=== PATIENT | female | born 1985 | race Caucasian/White ===

== ENCOUNTER 2017-09-02 12:43 | Emergency (ER) | payer OTHER ==
[~2017-09-02] VITALS: Ht 152.4 cm; Wt 48.1 kg
[~2017-09-02 12:43] MED LIST: ALPRAZOLAM1 MG PO; ATIVAN1 MG PO; AUGMENTIN PO; CARAFATE1 GM PO; CELEBREX100 MG PO; COUMADIN1 MG PO; COUMADIN3 MG PO; FLUCONAZOLE100 MG PO; HYDROXYZINE HCL25 MG PO; HYDROXYZINE HCL50 MG PO; LEVSIN0.125 MG PO; LORATADINE10 M1 PO; LORATADINE10 MG PO; LUNESTA1 MG PO; LUNESTA2 MG PO; METOCLOPRAMIDE10 MG PO; METRONIDAZOLE250 MG PO; MIDODRINE HCL2.5 MG PO; NORCO 10-325 T1 EACH PO; OLANZAPINE20 MG PO; OMEPRAZOLE40 MG PO; PANTOPRAZOLE SO40 MG PO; PROMETHAZINE HC25 M1 PO; PROTONIX40 MG PO; RANITIDINE HCL150 MG PO; REGLAN5 MG PO; REMICADE100 MG/VIA; SERTRALINE HCL50 MG PO; TEMAZEPAM15 MG PO; TRAZODONE HCL50 MG PO; TYLENOL # 31 EA PO; TYLENOL WITH C1 EACH PO; ULTRAM 50MG50 MG PO; VANCOCIN HCL250 MG PO; VYVANSE20 MG PO; ZALEPLON10 MG PO; ZOLPIDEM TARTRAT5 MG PO; [UNRECOGNIZED DRUG - OTHER] PO
== END 2017-09-02 13:25 | disposition left against medical advice (07) ==
LOC: ER 12:43
DX: M67.431 Ganglion, right wrist (principal)

== ENCOUNTER 2017-10-25 19:23 | Inpatient (IN) | payer OTHER ==
[~2017-10-25] VITALS: Ht 152.4 cm; Wt 48.1 kg
[2017-10-25] MEDS ORDERED: ONDANSETRON HCL INJ 2 MG/ML VIAL IV STA (19:30)
[2017-10-25] MEDS ORDERED: SODIUM CHLORIDE 0.9% 1000ML 1,000 ML IV STA (19:30)
[2017-10-25] MEDS ORDERED: HYDROMORPHONE 1MG/1ML INJ IV ONE (20:00)
[2017-10-25] MEDS ORDERED: PROMETHAZINE 12.5MG/ NACL 0.9% 12.5 MG/50 ML BAG IV ONE (20:00)
[2017-10-25 21:17] LABS: BASOPHILS % 0.2 % (0.0-1.0); EOSINOPHILS % 0.1 % (0.0-6.0); HEMOGLOBIN 12.5 g/dL (12.0-16.0); LYMPHOCYTES # (AUTO) 1.5 (1.0-3.2); LYMPHOCYTES % 10.5 % (18.0-39.1); MEAN CORPUSCULAR HEMOGLOBIN 26.5 pg (28-32); MEAN CORPUSCULAR HGB CONC 34.7 g/dL (31-35); MEAN CORPUSCULAR VOLUME 76.3 fL (81-99); MONOCYTES # (AUTO) 1.1 (0.2-0.8); MONOCYTES % 7.2 % (4.4-11.3); NEUTROPHILS # (AUTO) 11.9 (2.1-6.9); NEUTROPHILS % 81.7 % (38.7-80.0); PLATELET COUNT 328 x10e3/uL (140-360); RED BLOOD COUNT 4.72 x10e6/uL (3.6-5.1); RED CELL DISTRIBUTION WIDTH 11.7 % (11.7-14.4)
[2017-10-25 21:37] LABS: ALANINE AMINOTRANSFERASE 13 IU/L (0-55); ALBUMIN 3.2 g/dL (3.5-5.0); ALBUMIN/GLOBULIN RATIO 0.7 (0.8-2.0); ALKALINE PHOSPHATASE 151 IU/L (40-150); ANION GAP 16.1 mmol/L (8-16); BLOOD UREA NITROGEN 18 mg/dL (7-26); BUN/CREATININE RATIO 10 (6-25); CALCIUM 9.4 mg/dL (8.4-10.2); CARBON DIOXIDE 33 mmol/L (22-29); CHLORIDE 83 mmol/L (98-107); CREATINE KINASE 72 IU/L (29-168); CREATININE, SERUM 1.87 mg/dL (0.57-1.11); EST GLOMERULAR FILTRATION RATE 32 ML/MIN (60-); GLUCOSE 106 mg/dL (74-118); LIPASE 107 U/L (8-78); POTASSIUM 3.1 mmol/L (3.5-5.1); SODIUM 129 mmol/L (136-145)
[2017-10-25 22:34] LABS: BILIRUBIN,URINE NEGATIVE (NEGATIVE); CLARITY,URINE CLOUDY (CLEAR); COLOR,URINE YELLOW (YELLOW); KETONES,URINE NEGATIVE (NEGATIVE); LEUKOCYTE ESTERASE ,URINE NEGATIVE (NEGATIVE); NITRITE,URINE NEGATIVE (NEGATIVE); URINE UROBILINOGEN 0.2 mg/dL (0.2 - 1)
--- NOTE | 2017-10-25 22:37 | Diagnostic Imaging Report ---
ABDOMEN-1VIEW (KUB) Clinical history: Small bowel obstruction Technique: AP view abdomen Comparison: None Findings: Gas is seen in nondilated small and large bowel. Bowel sutures noted. No evidence of free air. Impression: Nonobstructive bowel gas pattern. Signed by: Dr Georgie Enamorado MD on 10/25/2017 10:33 PM
[2017-10-25 22:41] LABS: PROTEIN,URINE DIPSTICK 1+ (NEGATIVE)
[2017-10-25 22:47] LABS: BACTERIA,URINE MANY /HPF; EPITHELIAL CELLS,URINE FEW /LPF; TRANSITIONAL EPI CELLS,URINE FEW
--- NOTE | 2017-10-25 22:47 | Diagnostic Imaging Report ---
CHEST SINGLE (PORTABLE), 10/25/2017 7:30 PM Technique: CHEST SINGLE (PORTABLE) Comparison: 9.3.16 Clinical history: Fever Findings: Right port tip overlies the SVC. Unremarkable appearance of the heart, mediastinum, lungs and pleural spaces. Impression: 1. Lines/Tubes: None 2. No acute abnormality. Signed by: Dr Georgie Enamorado MD on 10/25/2017 10:43 PM
[2017-10-25] MEDS ORDERED: LEVOFLOXACIN 500MG/D5W 100ML IV SCH (23:00)
[2017-10-25] MEDS: HYDROMORPHONE 1MG/1ML INJ IV PRN (23:48)
[2017-10-26] MEDS: LEVOFLOXACIN 500MG/D5W 100ML 100 ML IV SCH ×2 (00:08→23:53)
[2017-10-26] MEDS: KCL 20MEQ/.9 SOD CHL 1,000 ML IV SCH ×2 (00:08→07:00)
[2017-10-26 01:03] VITALS: BP 114/79
[2017-10-26] MEDS: METRONIDAZOLE 500MG/NS 100ML 100 ML IV SCH ×4 (01:30→17:51)
[2017-10-26] MEDS: HYDROMORPHONE 1MG/1ML INJ IV PRN ×5 (04:23→19:58)
[2017-10-26 04:49] VITALS: BP 108/80
[2017-10-26 06:28] LABS: BASOPHILS % 0.2 % (0.0-1.0); EOSINOPHILS # (AUTO) 0.1 (0.0-0.4); EOSINOPHILS % 0.6 % (0.0-6.0); HEMATOCRIT 31.8 % (34.2-44.1); HEMOGLOBIN 10.8 g/dL (12.0-16.0); LYMPHOCYTES # (AUTO) 1.8 (1.0-3.2); LYMPHOCYTES % 14.6 % (18.0-39.1); MEAN CORPUSCULAR HEMOGLOBIN 26.5 pg (28-32); MEAN CORPUSCULAR VOLUME 77.9 fL (81-99); MONOCYTES # (AUTO) 1.2 (0.2-0.8); NEUTROPHILS # (AUTO) 8.9 (2.1-6.9); NEUTROPHILS % 74.3 % (38.7-80.0); PLATELET COUNT 283 x10e3/uL (140-360); RED BLOOD COUNT 4.08 x10e6/uL (3.6-5.1); RED CELL DISTRIBUTION WIDTH 11.6 % (11.7-14.4)
[2017-10-26 06:58] LABS: ALBUMIN 2.8 g/dL (3.5-5.0); ALBUMIN/GLOBULIN RATIO 0.7 (0.8-2.0); CALCIUM 8.8 mg/dL (8.4-10.2); CREATININE, SERUM 1.2 mg/dL (0.57-1.11)
[2017-10-26 08:00] VITALS: BP 104/65
[2017-10-26] MEDS: PROMETHAZINE 12.5MG/ NACL 0.9% 12.5 MG/50 ML BAG IV PRN ×3 (08:16→19:57)
[2017-10-26] MEDS: ALPRAZOLAM 0.5 MG TAB PO PRN (09:51)
[2017-10-26] MEDS ORDERED: DIATRIZOATE MEGL/DIATRIZOA SOD 30 ML BTL PO ONE (10:05)
--- NOTE | 2017-10-26 10:28 | History and Physical ---
CHIEF COMPLAINT: Acute abdominal pain associated with nausea, vomiting, dehydration, electrolyte disorder. HISTORY OF PRESENT ILLNESS: Patient is a 31-year-old female, well known to this service. Patient has Crohn disease with multiple history of previous surgical intervention. The patient basically has been seen by Dr. Veras for her treatment. She had a complicated history with a previous surgical intervention. The patient underwent extensive multiple surgeries and then subsequently a total colectomy. She had a colonic-ileal anastomosis. She also had multiple workup and recurrent hospitalization. She had previous right iliacus muscle abscess at the previous anastomosis. The patient was with antibiotics previously and subsequently went home with antibiotics. Since then the patient has been treated as an outpatient. The patient has now presented to the hospital with leukocytosis of 14,500 associated with fever of 100.6. The patient has intractable abdominal pain. The KUB did not show any free air, but the patient will need a CT scan of the abdomen and pelvis. She also has significant urinary tract infection with WBCs in the urine of 20 and many bacteria. Influenza was negative. The patient is with pain but otherwise hemodynamically stable. Blood pressure is 104/65. PAST MEDICAL HISTORY: Extensive. Long history of Crohn disease with multiple surgical interventions. Possible previous surgery with subtotal to total colectomy with anastomosis on the right side of the abdominal area with a previous abscess infection and iliacus muscular abscess which was basically with a drain and antibiotic treatment. Recurrent abdominal pain. Recurrent urinary tract infection and electrolyte disorder. The patient is having recurrent diarrhea episodically. She is on pain medication dependency as well for pain control. SOCIAL HISTORY: Patient lives with her spouse and children. She does not smoke or drink alcohol. No recreational drugs. ALLERGIES: ZOFRAN, MORPHINE AND ADHESIVE TAPE. HOME MEDICATIONS: List is extensively reviewed including Xanax, hydroxyzine, Levsin, Remicade outpatient, Claritin, Reglan, midodrine, omeprazole, Zoloft, temazepam, trazodone, tramadol for pain, Ambien and [employer] PHYSICAL EXAMINATION GENERAL: The patient is in pain, but she is not in distress. VITAL SIGNS: Temperature T-max was 100.6. Blood pressure is 114/79. Pulse rate 100.5. Respirations 22. HEENT: Normocephalic, atraumatic, anicteric. NECK: Supple grossly. PULMONARY: Diminished breath sounds without any wheezing or rales. CARDIOVASCULAR: S1, S2. Tachycardia. ABDOMEN: Tenderness to all quadrants. There is guarding. There are no rebound. NEUROLOGIC: No focal deficit. LABORATORY: WBC is 14.5. Hemoglobin 12.5, hematocrit 36, platelets 328. Chemistries: Sodium 129, potassium 3.1, chloride 83, bicarb 33, BUN 18, creatinine 1.9, glucose 106. test is negative. Lipase is 107. IMPRESSION 1. Intractable abdominal pain associated with nausea, vomiting, diarrhea, electrolyte disorder. Could be exacerbation of the patient's Crohn disease. 2. Leukocytosis and fever as mentioned above including most likely infection. 3. Urinary tract infection. 4. Intractable pain. 5. Electrolyte disorder. Dehydration with hyponatremia. PLAN: Normal saline with potassium replacement. Antibiotics. Consultation with Dr. Bojorquez and Dr. Torre. Continue with treatment until urine culture and blood culture obtained. Pain control. IV fluid rehydration. Will monitor patient closely as inpatient. Job#: [id number]
[2017-10-26 12:00] VITALS: BP 106/59
[2017-10-26] MEDS: KCL 40MEQ/0.9% SOD CHL 1,000 ML IV SCH ×2 (12:00→22:00)
--- NOTE | 2017-10-26 14:36 | Consultation ---
DATE OF CONSULTATION: October 26, 2017 REASON FOR CONSULTATION: Colitis. Recommendation for antibiotic. Fever HISTORY OF PRESENT ILLNESS: This is a well known to me, 31-year-old white female, unfortunate, who has a history of severe Crohn disease. She has been seen by gastroenterology [facility] as well as Dr. Veras. Patient has had multiple abdominal surgeries and multiple intra-abdominal abscesses. She had been doing fair, but she continued to have abdominal pain. Given multiple IV fluids. She cannot keep anything in on and off, so she gets IV fluid infusions sometimes and multivitamins sometimes and nutrition. The patient comes now with nausea and vomiting. Cannot tolerate anything. The pain was so severe she could not tolerate it. She had to go to the emergency room where she was evaluated and admitted. The patient has a history of Crohn's disease, multiple surgical interventions, multiple intra-abdominal abscesses. She is cachectic now and not gaining any weight. She comes in with the above complaint. PAST SURGICAL HISTORY: Abdominal surgery. ALLERGIES: NKA. SOCIAL HISTORY: No smoking, no alcohol abuse, no drug abuse. FAMILY HISTORY: Noncontributory. REVIEW OF SYSTEMS GENERAL: Complaining of nausea, not feeling well. HEENT: There is no headache and no visual changes. She feels really miserable. She said she cannot keep anything in. LABORATORY DATA: White count on admission was 14.5, hemoglobin 12, hematocrit 36. Sodium 127, potassium 3.0, creatinine 1.2. When she first came, the creatinine was 1.87. PHYSICAL EXAMINATION GENERAL: She is currently alert and oriented, does not seem to be in acute distress. VITALS: Stable, currently afebrile, but she did have 100.5 when she first came in. HEENT: She is not icteric. NECK: Supple. CHEST: Clear. COR: No murmur. ABDOMEN: Soft. She has diffuse discomfort and tenderness. EXTREMITIES: No edema. Very thin lady. IMPRESSION: Nausea, vomiting, acute dehydration with acute renal failure. Hyponatremia and hyperkalemia, probably a flare-up of Crohn disease. Will put her on IV fluids as ordered. Continue with Levaquin and Flagyl for now. She had a CT scan in the last less than a year. I would suggest to obtain an ultrasound of the abdomen. Her x-ray does not show obstruction. Will see how she can do in the next few days with IV fluids and supportive care. Will follow. Job#: [id number]
--- NOTE | 2017-10-26 19:55 | Consultation ---
DATE OF CONSULTATION: October 26, 2017 REFERRING PHYSICIAN: Dr. Salter and Dr. Torre. HISTORY OF PRESENT ILLNESS: Patient is a 31-year-old female who is known to me. She has history of Crohn's disease. She had a previous total colectomy with a J pouch. This was done a few years ago. She has frequent diarrhea. She is admitted to the hospital now with complaints of increasing abdominal pain and dehydration. She has only had a plain abdominal x-ray done this admission, which was unremarkable. She says she has been on Remicade as an outpatient. 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 She has not had any surgery done in the last at least 2 years. PAST MEDICAL HISTORY: Significant for multiple complications of her Crohn's disease with previous total colectomy with J pouch and ileoproctostomy. She has had multiple hospitalizations recently for complications with abscesses that require percutaneous drainage. She has a venous access port. ALLERGIES: ZOFRAN, MORPHINE AND ADHESIVE TAPE. MEDICATIONS: Xanax, Vistaril, Levsin, Remicade, Claritin, Reglan, Midodrine, omeprazole, Zoloft, temazepam, trazodone, tramadol, Ambien and [place]. FAMILY HISTORY: Noncontributory. SOCIAL HISTORY: The patient is . Does not smoke cigarettes or drink alcohol. REVIEW OF SYSTEMS: Is as stated above. She has had low-grade fever. She also has pain. Where her right subclavian venous access port is. PHYSICAL EXAMINATION: VITALS: Significant for a low-grade fever. Temperature up to 100.6 today with heart rate around 100. GENERAL: The patient is awake and alert and in no distress. HEENT: Reveals no scleral icterus. NECK: Has no masses. LUNGS: Equal breath sounds, are clear bilaterally. CARDIAC: Regular subclavian port in place which does not show any signs of infection. Regular rate and rhythm with no murmur. ABDOMEN: Diffusely tender, but soft with no signs of peritonitis. There is no mass. No distention. EXTREMITIES: No edema. LABORATORY DATA: White blood cell count 14.5 on admission and repeat today is 12. Hemoglobin and hematocrit are 12.5 and 36. Chemistries with sodium low at 127, chloride 86, potassium 3.0. Bicarbonate level was normal. BUN is normal and creatinine slightly elevated at 1.2. Liver function tests were essentially normal. ASSESSMENT: A 31-year-old female with Crohn's disease with increased pain. She will likely need further evaluation of ultrasound and/or CT scan of the abdomen. She may benefit from ileostomy as it seems that the source of the fistula is the J pouch and ileoproctostomy. This was explained to the patient. She is considering this option. Thank you for asking me to see Ms. Boucher. Job#: [id number]
[2017-10-26 20:00] VITALS: BP 110/61
[2017-10-27] VITALS (7 sets, daily range): BP systolic 112–126; BP diastolic 58–72
[2017-10-27] MEDS: PROMETHAZINE 12.5MG/ NACL 0.9% 12.5 MG/50 ML BAG IV PRN ×5 (00:18→20:30)
[2017-10-27] MEDS: HYDROMORPHONE 1MG/1ML INJ IV PRN ×10 (00:18→22:30)
[2017-10-27] MEDS: METRONIDAZOLE 500MG/NS 100ML 100 ML IV SCH ×4 (00:36→19:45)
[2017-10-27] MEDS: KCL 40MEQ/0.9% SOD CHL 1,000 ML IV SCH ×2 (06:06→18:00)
[2017-10-27 06:29] LABS: ALANINE AMINOTRANSFERASE 11 IU/L (0-55); ALBUMIN 2.3 g/dL (3.5-5.0); ALBUMIN/GLOBULIN RATIO 0.7 (0.8-2.0); ALKALINE PHOSPHATASE 103 IU/L (40-150); ANION GAP 12.7 mmol/L (8-16); BLOOD UREA NITROGEN 8 mg/dL (7-26); BUN/CREATININE RATIO 11 (6-25); CALCIUM 7.7 mg/dL (8.4-10.2); CARBON DIOXIDE 24 mmol/L (22-29); CHLORIDE 103 mmol/L (98-107); CREATININE, SERUM 0.72 mg/dL (0.57-1.11); EST GLOMERULAR FILTRATION RATE > 60 ML/MIN (60-); GLUCOSE 77 mg/dL (74-118); PHOSPHORUS 1.8 MG/DL (2.3-4.7); POTASSIUM 3.7 mmol/L (3.5-5.1); SODIUM 136 mmol/L (136-145)
[2017-10-27 06:43] LABS: MAGNESIUM 1.1 MG/DL (1.3-2.1)
[2017-10-27] MEDS: ACETAMINOPHEN 325 MG TAB PO PRN ×2 (09:40→20:30)
[2017-10-27] MEDS: ALPRAZOLAM 0.5 MG TAB PO PRN ×2 (09:40→21:02)
[2017-10-27 09:56] LABS: BASOPHILS % 0.2 % (0.0-1.0); EOSINOPHILS # (AUTO) 0.1 (0.0-0.4); HEMATOCRIT 29.2 % (34.2-44.1); HEMOGLOBIN 9.6 g/dL (12.0-16.0); LYMPHOCYTES # (AUTO) 1.5 (1.0-3.2); LYMPHOCYTES % 16.4 % (18.0-39.1); MEAN CORPUSCULAR HEMOGLOBIN 26.3 pg (28-32); MEAN CORPUSCULAR HGB CONC 32.9 g/dL (31-35); MONOCYTES % 10.7 % (4.4-11.3); NEUTROPHILS # (AUTO) 6.3 (2.1-6.9); NEUTROPHILS % 71.4 % (38.7-80.0); PLATELET COUNT 213 x10e3/uL (140-360); RED BLOOD COUNT 3.65 x10e6/uL (3.6-5.1); RED CELL DISTRIBUTION WIDTH 11.7 % (11.7-14.4)
--- NOTE | 2017-10-27 10:20 | Diagnostic Imaging Report ---
PROCEDURE:ABDOMINAL ULTRASOUND COMPARISON:CT abdomen and pelvis 06/30/2017. INDICATIONS:Abdominal Pain, HX Crohn's and Colitis FINDINGS: Liver: 13.2 cm. Normal hepatic parenchymal echogenicity. No focal mass. Main portal vein: 1.3 cm. Hepatopedal flow. Gallbladder: No echogenic calculi, gallbladder wall thickening, or pericholecystic fluid. Common Bile Duct: 2.0 mm. No echogenic filling defect. Sonographic Grubbs's sign: Negative. Right kidney: 11.4 cm. No solid or cystic mass, echogenic calculi, or hydronephrosis. Normal parenchymal echogenicity. Left kidney: 10.4 cm. No solid or cystic mass, echogenic calculi, or hydronephrosis. Normal parenchymal echogenicity. Spleen: 10.7 cm. No focal mass. Pancreas: The visualized portions of the pancreas are normal. Inferior vena cava: Normal. Aorta: Normal. Ascites: None. Focal 3.4 x 1.6 x 3.8 cm fluid collection is present in the right lower quadrant. CONCLUSION: 1. No acute sonographic abnormality. 2. Right lower quadrant fluid collection. CT of the abdomen and pelvis with intravenous and oral contrast may provide additional information for further characterization. 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 Dictated by: Abdias Jones M.D. on 10/27/2017 at 10:19 Electronically approved by: Abdias Jones M.D. on 10/27/2017 at 10:19
--- NOTE | 2017-10-27 10:26 | Diagnostic Imaging Report ---
PROCEDURE:PELVIC ULTRASOUND COMPARISON:None. INDICATIONS:History of pelvic Abscess TECHNIQUE: Grayscale transverse and sagittal transabdominal images were obtained of the pelvis. FINDINGS: UTERUS: 8.8 x 3.9 x 4.5 cm. The uterus is slightly heterogenous in echogenicity. ENDOMETRIUM: 6.0 mm. RIGHT OVARY: 3.0 x 2.0 x 2.5 cm. LEFT OVARY: 2.9 x 2.1 x 2.6 cm. No adnexal mass. No ovarian cysts. There is trace free fluid within the pelvis. No adnexal masses. CONCLUSION: Normal transabdominal and transvaginal pelvic ultrasound. Dictated by: Abdias Jones M.D. on 10/27/2017 at 10:25 Electronically approved by: Abdias Jones M.D. on 10/27/2017 at 10:25
[2017-10-27] MEDS ORDERED: POTASSIUM PHOSPHATE 20 MM in SODIUM CHLORIDE 0.9% 250ML 250 ML IV SCH (10:30)
[2017-10-27] MEDS: MAGNESIUM SULFATE 2GM/50ML IV SCH ×2 (10:44→22:13)
[2017-10-27] MEDS ORDERED: DIATRIZOATE MEGL/DIATRIZOA SOD 30 ML BTL PO ONE (12:35)
[2017-10-27] MEDS: SENNOSIDES 8.6 MG TAB PO SCH (17:00)
[2017-10-27] MEDS ORDERED: IOPAMIDOL 370 MG/ML 200 ML INFUS..BTL INJ ONE (22:38)
--- NOTE | 2017-10-27 23:47 | Diagnostic Imaging Report ---
EXAM: CT Abdomen and Pelvis WITH contrast INDICATION: Abdominal fluid collection. COMPARISON: None. TECHNIQUE: Abdomen and pelvis were scanned utilizing a multidetector helical scanner from the lung base to the pubic symphysis after administration of IV contrast. Coronal and sagittal reformations were obtained. Routine protocol was performed. Scan was performed when during portal venous phase. IV CONTRAST: 150 mL of Omnipaque 300 ORAL CONTRAST: Water RADIATION DOSE: Total DLP: ... mGy*cm Estimated effective dose: (DLP x 0.015 x size factor) mSv COMPLICATIONS: None FINDINGS: LINES and TUBES: None. LOWER THORAX: Unremarkable HEPATOBILIARY: Severe atrophy of the right liver with compensatory hypertrophy of the left liver. No focal hepatic lesions. Diffuse biliary dilatation in residual right liver. GALLBLADDER: Contracted. SPLEEN: No splenomegaly. PANCREAS: No focal masses or ductal dilatation. ADRENALS: No adrenal nodules KIDNEYS/URETERS: Kidneys enhance symmetrically. No hydronephrosis. No cystic or solid mass lesions. No stones. GI TRACT: Extensive postsurgical changes noted in the abdomen and pelvis with evidence of ileorectal anastomosis. Patient is a status post total colectomy. PELVIC ORGANS/BLADDER: Unremarkable. LYMPH NODES: No lymphadenopathy. VESSELS: Unremarkable. PERITONEUM / RETROPERITONEUM: Within the right retroperitoneum at the lateral right iliac muscle there is a 2.5 x 3.2 x 3.7 cm fluid collection that appears to connect with a bowel loop best visualized on coronal series 301, image 29 compatible with a chronic focal leak. Additionally, there is a fluid collection originating at the level of the ileorectal anastomosis best seen on series 2, image 64 and coronal series 301, image 52 measuring 1.7 x 1.7 x 3 cm. Right lower quadrant perisurgical fat stranding. BONES: Unremarkable. SOFT TISSUES: Unremarkable. IMPRESSION: 1. Severe atrophy of the right liver with competence of the hypertrophy of the left liver and evidence of biliary dilatation in the residual right liver. 2. There are 2 extraperitoneal fluid collections in the right lower quadrant and in the right hemipelvis as described above. The appearance and close proximity to anastomotic sutures are compatible with contained leaks Signed by: Dr. Marcos Tom M.D. on 10/27/2017 11:43 PM
[2017-10-28] VITALS: BP 120/56
[2017-10-28] MEDS: HYDROMORPHONE 1MG/1ML INJ IV PRN ×7 (00:30→21:13)
[2017-10-28] MEDS: PROMETHAZINE 12.5MG/ NACL 0.9% 12.5 MG/50 ML BAG IV PRN ×3 (00:30→20:54)
[2017-10-28] MEDS: LEVOFLOXACIN 500MG/D5W 100ML 100 ML IV SCH (01:12)
[2017-10-28] MEDS: METRONIDAZOLE 500MG/NS 100ML 100 ML IV SCH ×2 (02:00→07:00)
[2017-10-28 04:00] VITALS: BP 129/83
[2017-10-28] MEDS: ALPRAZOLAM 0.5 MG TAB PO PRN ×3 (05:00→20:53)
[2017-10-28] MEDS: ACETAMINOPHEN 325 MG TAB PO PRN ×2 (05:00→21:49)
[2017-10-28 06:13] LABS: BASOPHILS % 0.2 % (0.0-1.0); EOSINOPHILS # (AUTO) 0.1 (0.0-0.4); EOSINOPHILS % 0.9 % (0.0-6.0); HEMATOCRIT 25.5 % (34.2-44.1); HEMOGLOBIN 8.6 g/dL (12.0-16.0); LYMPHOCYTES # (AUTO) 1.1 (1.0-3.2); LYMPHOCYTES % 11.8 % (18.0-39.1); MEAN CORPUSCULAR HEMOGLOBIN 26.5 pg (28-32); MEAN CORPUSCULAR HGB CONC 33.7 g/dL (31-35); MEAN CORPUSCULAR VOLUME 78.7 fL (81-99); MONOCYTES # (AUTO) 0.9 (0.2-0.8); MONOCYTES % 9.3 % (4.4-11.3); NEUTROPHILS # (AUTO) 7.4 (2.1-6.9); NEUTROPHILS % 77.4 % (38.7-80.0); PLATELET COUNT 209 x10e3/uL (140-360); RED BLOOD COUNT 3.24 x10e6/uL (3.6-5.1); RED CELL DISTRIBUTION WIDTH 11.9 % (11.7-14.4)
[2017-10-28 06:36] LABS: ALANINE AMINOTRANSFERASE 12 IU/L (0-55); ALBUMIN 2.6 g/dL (3.5-5.0); ALBUMIN/GLOBULIN RATIO 0.7 (0.8-2.0); ALKALINE PHOSPHATASE 104 IU/L (40-150); ANION GAP 13.8 mmol/L (8-16); BLOOD UREA NITROGEN 6 mg/dL (7-26); BUN/CREATININE RATIO 8 (6-25); CARBON DIOXIDE 20 mmol/L (22-29); CHLORIDE 103 mmol/L (98-107); CREATININE, SERUM 0.74 mg/dL (0.57-1.11); EST GLOMERULAR FILTRATION RATE > 60 ML/MIN (60-); GLUCOSE 84 mg/dL (74-118); MAGNESIUM 1.5 MG/DL (1.3-2.1); PHOSPHORUS 1.8 MG/DL (2.3-4.7); POTASSIUM 3.8 mmol/L (3.5-5.1); SODIUM 133 mmol/L (136-145)
[2017-10-28] MEDS: KCL 40MEQ/0.9% SOD CHL 1,000 ML IV SCH (07:00)
[2017-10-28 08:00] VITALS: BP 102/55
[2017-10-28] MEDS: SENNOSIDES 8.6 MG TAB PO SCH ×2 (09:00→16:04)
[2017-10-28] MEDS ORDERED: SODIUM CHLORIDE 0.9% 1000ML 1,000 ML ONE (09:09)
[2017-10-28] MEDS ORDERED: FENTANYL CITRATE/PF 100MCG/2 ML INJ ONE (09:31)
[2017-10-28] MEDS ORDERED: MIDAZOLAM HCL 2 MG/2 ML VIAL ONE (09:31)
--- NOTE | 2017-10-28 11:46 | Diagnostic Imaging Report ---
PROCEDURE:[facility] FLUID/ABSC W/CATH-CT COMPARISON:CT abdomen and pelvis 10/27/2017. INDICATIONS:Right lower quadrant fluid collection. Preprocedure diagnosis: Right lower quadrant fluid collection Post procedure diagnosis: Right lower quadrant abscess Sedation/anesthesia: Fentanyl 100 mcg intravenous, Versed 2 mg intravenous. The patient's heart rate and pulse oximetry were continuously monitored by the interventional radiology nurse. Blood pressure was monitored at 5 minute intervals. Additional medications: Lidocaine 1% for local anesthesia Estimated blood loss: Minimal Blood products administered: None Specimens: 5 cc purulent fluid was submitted for microbiologic analysis Implants/grafts: 10 Yi locking loop all-purpose drainage catheter Contrast used: None Fluoroscopy time: Zero Condition at completion of procedure: Stable Disposition: Radiology holding then returned to coe unit. Procedure in detail: Informed consent for the procedure was obtained from the patient and documented in the medical record after discussion of risks and benefits. The patient was placed in the supine position on the CT couch. A marker grid was placed over the right lower quadrant of the abdomen and limited CT scan was performed identifying a suitable percutaneous approach. Right lower quadrant was then prepped and draped in standard sterile fashion. One percent lidocaine was infiltrated into the skin and subcutaneous tissues for local anesthesia. Then under intermittent CT guidance, an 18 gauge needle was advanced into the right lower quadrant fluid collection. Purulent material was aspirated. A 0.035 inch Amplatz wire was advanced through the needle. The needle was removed over the wire and the tract was dilated. Then a 10 Yi locking loop all-purpose drainage catheter was advanced [id number] and the locking loop was formed within the fluid collection. Final CT image confirmed appropriate catheter positioning. Approximately 5 cc of purulent material were aspirated through the catheter. A specimen was submitted for microbiologic analysis. Catheter was secured to the skin with monofilament nylon suture and a sterile dressing was applied. Patient tolerated the procedure well without immediate complication. FINDINGS: 3 cm right lower quadrant abscess. CONCLUSION: Successful CT-guided aspiration and drainage catheter placement within a right lower quadrant abscess without immediate complication. Dictated by: Bradley Read M.D. on 10/28/2017 at 11:45 Electronically approved by: Bradley Read M.D. on 10/28/2017 at 11:45
[2017-10-28 12:00] VITALS: BP 107/52
[2017-10-28] MEDS: MEROPENEM 500 MG VIAL IV SCH ×2 (15:15→20:54)
--- NOTE | 2017-10-28 15:53 | Progress Note ---
DATE: October 28, 2017 INFECTIOUS DISEASE PROGRESS NOTE SUBJECTIVE: Ms. Boucher is doing okay, feeling better. She still has some abdominal pain. She has a drain in now. No fever, no chills. PHYSICAL EXAMINATION GENERAL: She is currently alert, oriented, does not seem to be in acute distress. She is thin. VITAL SIGNS: Stable. Currently afebrile. Her T-max has been 102.4. HEENT: She does not appear icteric. Normocephalic. NECK: Supple. CHEST: Clear bilaterally. HEART: S1 and S2. No S3 or S4, no murmur. ABDOMEN: Soft. She has a drain in which is like red serosanguineous. Her laboratory data reviewed. The cultures are still pending. Her white count is down to 9.6, hemoglobin 8.6. Sodium 133, potassium 3.8, creatinine of 0.74. Liver enzymes within normal limits. 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 Still running fever. Will change her to meropenem but wait for the cultures. Discontinue Levaquin and Flagyl. Will follow with you. Job#: [id number] YURIDIA
[2017-10-28 16:00] VITALS: BP 95/58
[2017-10-28 20:00] VITALS: BP 117/80
[2017-10-28] MEDS ORDERED: MEROPENEM 500MG 500 MG in SODIUM CHLORIDE 0.9% 50ML 50 ML IV SCH (22:00)
[2017-10-29] VITALS: BP 118/69
[2017-10-29] MEDS: KCL 40MEQ/0.9% SOD CHL 1,000 ML IV SCH ×2 (01:17→10:00)
[2017-10-29] MEDS: HYDROMORPHONE 1MG/1ML INJ IV PRN ×5 (01:18→20:55)
[2017-10-29] MEDS: ACETAMINOPHEN 325 MG TAB PO PRN ×2 (02:59→21:43)
[2017-10-29] MEDS: ALPRAZOLAM 0.5 MG TAB PO PRN ×3 (02:59→21:17)
[2017-10-29 04:00] VITALS: BP 107/79
[2017-10-29] MEDS: MEROPENEM 500 MG VIAL IV SCH ×3 (06:13→20:55)
[2017-10-29] MEDS: PROMETHAZINE 12.5MG/ NACL 0.9% 12.5 MG/50 ML BAG IV PRN ×3 (06:24→20:55)
[2017-10-29 07:57] VITALS: BP 105/58
[2017-10-29] MEDS: SENNOSIDES 8.6 MG TAB PO SCH ×2 (08:37→17:00)
[2017-10-29 12:05] VITALS: BP 117/77
[2017-10-29 16:14] VITALS: BP 98/54
--- NOTE | 2017-10-29 17:09 | Progress Note ---
DATE: October 29, 2017 SUBJECTIVE: Ms. Boucher continued to have abdominal pain. She has a drain in. There is no new complaint otherwise. PHYSICAL EXAMINATION GENERAL: She is currently alert and oriented, does not seem to be in acute distress, a very thin lady. VITAL SIGNS: Stable. Had a fever of 101.3. HEENT: She does not appear icteric. NECK: Supple. CHEST: Few crackles bilaterally, coarse. HEART: S1 and S2. ABDOMEN: Soft. The culture is growing staph aureus. Her laboratory data reviewed. White count is 14.5, hemoglobin 12. Her sodium 136, potassium 3.7, creatinine of 0.72. IMPRESSION AND PLAN 1. Sepsis abscess secondary to Crohn's disease, with concern about fistula, now she is growing staph aureus. Continue meropenem. We will add vancomycin for fever, concerned about the new infection. We will obtain the blood culture. 2. Crohn's disease and debilitated. We will follow with you. Job#: [id number] FRANNIE
[2017-10-29] MEDS: VANCOMYCIN 1GM/NS 250 ML 250 ML IV SCH (17:59)
[2017-10-29 20:00] VITALS: BP 129/59
[2017-10-29] MEDS ORDERED: CENTRAL TPN FORMULA 1 BAG IV SCH (20:00)
[2017-10-29] MEDS: FAMCICLOVIR 500 MG TAB PO SCH (20:55)
[2017-10-29] MEDS ORDERED: SODIUM CHLORIDE 0.9% 250ML 250 ML ONE (21:32)
[2017-10-30] VITALS (9 sets, daily range): BP systolic 92–127; BP diastolic 54–62
[2017-10-30] MEDS: HYDROMORPHONE 1MG/1ML INJ IV PRN ×8 (01:24→23:36)
[2017-10-30] MEDS: PROMETHAZINE 12.5MG/ NACL 0.9% 12.5 MG/50 ML BAG IV PRN ×3 (01:24→12:34)
[2017-10-30] MEDS: MEROPENEM 500 MG VIAL IV SCH ×3 (05:59→21:10)
[2017-10-30 07:25] LABS: BASOPHILS % 0.4 % (0.0-1.0); EOSINOPHILS # (AUTO) 0.2 (0.0-0.4); EOSINOPHILS % 2.5 % (0.0-6.0); HEMATOCRIT 29.6 % (34.2-44.1); HEMOGLOBIN 9.6 g/dL (12.0-16.0); LYMPHOCYTES # (AUTO) 1.7 (1.0-3.2); LYMPHOCYTES % 21.9 % (18.0-39.1); MEAN CORPUSCULAR HEMOGLOBIN 26.1 pg (28-32); MEAN CORPUSCULAR HGB CONC 32.4 g/dL (31-35); MEAN CORPUSCULAR VOLUME 80.4 fL (81-99); MONOCYTES # (AUTO) 1.2 (0.2-0.8); MONOCYTES % 15.4 % (4.4-11.3); NEUTROPHILS # (AUTO) 4.5 (2.1-6.9); NEUTROPHILS % 59.4 % (38.7-80.0); PLATELET COUNT 292 x10e3/uL (140-360); RED BLOOD COUNT 3.68 x10e6/uL (3.6-5.1); RED CELL DISTRIBUTION WIDTH 12.3 % (11.7-14.4)
[2017-10-30 07:41] LABS: ANION GAP 12.2 mmol/L (8-16); BLOOD UREA NITROGEN < 5 mg/dL (7-26); CALCIUM 8.5 mg/dL (8.4-10.2); CARBON DIOXIDE 22 mmol/L (22-29); CHLORIDE 105 mmol/L (98-107); CREATININE, SERUM 0.67 mg/dL (0.57-1.11); EST GLOMERULAR FILTRATION RATE > 60 ML/MIN (60-); GLUCOSE 112 mg/dL (74-118); PHOSPHORUS 2.7 MG/DL (2.3-4.7); POTASSIUM 4.2 mmol/L (3.5-5.1); SODIUM 135 mmol/L (136-145)
[2017-10-30 07:46] LABS: BUN/CREATININE RATIO 7 (6-25)
[2017-10-30 08:06] LABS: MAGNESIUM 1.2 MG/DL (1.3-2.1)
[2017-10-30] MEDS: SENNOSIDES 8.6 MG TAB PO SCH ×2 (09:31→17:32)
[2017-10-30] MEDS: FAMCICLOVIR 500 MG TAB PO SCH ×3 (09:31→21:10)
[2017-10-30] MEDS: VANCOMYCIN 1GM/NS 250 ML 250 ML IV SCH (17:31)
[2017-10-30] MEDS: ACETAMINOPHEN 325 MG TAB PO PRN (17:51)
[2017-10-30] MEDS: ALPRAZOLAM 0.5 MG TAB PO PRN (21:17)
[2017-10-31] VITALS (7 sets, daily range): BP systolic 90–127; BP diastolic 45–66
[2017-10-31] MEDS: HYDROMORPHONE 1MG/1ML INJ IV PRN ×3 (04:55→12:19)
[2017-10-31] MEDS: ALPRAZOLAM 0.5 MG TAB PO PRN ×2 (05:38→23:03)
[2017-10-31] MEDS: ACETAMINOPHEN 325 MG TAB PO PRN ×2 (05:38→18:05)
[2017-10-31] MEDS: MEROPENEM 500 MG VIAL IV SCH ×2 (05:39→14:25)
[2017-10-31] MEDS: FAMCICLOVIR 500 MG TAB PO SCH ×3 (08:05→21:01)
[2017-10-31] MEDS: SENNOSIDES 8.6 MG TAB PO SCH ×2 (09:00→15:57)
[2017-10-31] MEDS: HYDROMORPHONE 2MG/ML INJ IV PRN ×4 (14:25→23:02)
[2017-10-31] MEDS ORDERED: CEFTRIAXONE SOD 1 GM/NS 50 ML 50 ML IV SCH (15:15)
[2017-10-31] MEDS ORDERED: CEFTRIAXONE SOD 1 GM VIAL IV SCH (16:00)
[2017-10-31] MEDS: VANCOMYCIN 1GM/NS 250 ML 250 ML IV SCH (17:54)
[2017-11-01] VITALS (7 sets, daily range): BP systolic 101–114; BP diastolic 58–69
[2017-11-01] MEDS: HYDROMORPHONE 2MG/ML INJ IV PRN ×3 (02:36→08:38)
[2017-11-01] MEDS ORDERED: HYDROMORPHONE 1MG/1ML INJ ONE ×2 (06:25→08:31)
[2017-11-01 07:59] LABS: PHOSPHORUS 2.8 MG/DL (2.3-4.7)
[2017-11-01 08:11] LABS: ANION GAP 17.5 mmol/L (8-16); BLOOD UREA NITROGEN < 5 mg/dL (7-26); CALCIUM 9.5 mg/dL (8.4-10.2); CARBON DIOXIDE 24 mmol/L (22-29); CHLORIDE 101 mmol/L (98-107); CREATININE, SERUM 0.72 mg/dL (0.57-1.11); EST GLOMERULAR FILTRATION RATE > 60 ML/MIN (60-); GLUCOSE 65 mg/dL (74-118); POTASSIUM 3.5 mmol/L (3.5-5.1); SODIUM 139 mmol/L (136-145)
[2017-11-01 08:16] LABS: BUN/CREATININE RATIO 7 (6-25); MAGNESIUM 1.1 MG/DL (1.3-2.1)
[2017-11-01] MEDS: FAMCICLOVIR 500 MG TAB PO SCH ×3 (08:37→20:06)
[2017-11-01] MEDS: SENNOSIDES 8.6 MG TAB PO SCH ×2 (08:38→16:23)
[2017-11-01] MEDS: HYDROMORPHONE 1MG/1ML INJ IV PRN ×5 (10:47→23:10)
[2017-11-01] MEDS: ACETAMINOPHEN 325 MG TAB PO PRN (10:57)
[2017-11-01] MEDS ORDERED: POTASSIUM PHOSPHATE 20 MM in SODIUM CHLORIDE 0.9% 250ML 250 ML IV ONE (13:30)
[2017-11-01] MEDS: ERTAPENEM 1GM/NS 100ML 100 ML IV SCH (13:51)
[2017-11-01] MEDS: MAGNESIUM SULFATE 2GM/50ML 50 ML IV SCH ×2 (14:39→22:00)
[2017-11-01] MEDS: ALPRAZOLAM 0.5 MG TAB PO PRN ×2 (15:03→20:07)
[2017-11-01] MEDS: PROMETHAZINE 12.5MG/ NACL 0.9% 12.5 MG/50 ML BAG IV PRN (23:10)
[2017-11-02] VITALS: BP 102/56
[2017-11-02] MEDS: HYDROMORPHONE 1MG/1ML INJ IV PRN ×5 (01:37→14:15)
[2017-11-02] MEDS: ACETAMINOPHEN 325 MG TAB PO PRN ×2 (03:15→12:24)
[2017-11-02 04:00] VITALS: BP 102/58
[2017-11-02 07:45] LABS: MAGNESIUM 2.5 MG/DL (1.3-2.1); PHOSPHORUS 3.6 MG/DL (2.3-4.7)
[2017-11-02 07:53] LABS: ANION GAP 11.7 mmol/L (8-16); BLOOD UREA NITROGEN < 5 mg/dL (7-26); CALCIUM 8.3 mg/dL (8.4-10.2); CARBON DIOXIDE 27 mmol/L (22-29); CHLORIDE 104 mmol/L (98-107); CREATININE, SERUM 0.68 mg/dL (0.57-1.11); EST GLOMERULAR FILTRATION RATE > 60 ML/MIN (60-); GLUCOSE 117 mg/dL (74-118); POTASSIUM 4.7 mmol/L (3.5-5.1); SODIUM 138 mmol/L (136-145)
[2017-11-02 08:00] VITALS: BP 92/67
[2017-11-02 08:00] LABS: BUN/CREATININE RATIO 7 (6-25)
[2017-11-02 08:35] VITALS: BP 92/67
[2017-11-02] MEDS: FAMCICLOVIR 500 MG TAB PO SCH ×2 (09:00→15:00)
[2017-11-02] MEDS: SENNOSIDES 8.6 MG TAB PO SCH (09:00)
[2017-11-02] MEDS: PROMETHAZINE 12.5MG/ NACL 0.9% 12.5 MG/50 ML BAG IV PRN (11:50)
[2017-11-02 12:00] VITALS: BP 97/60
[2017-11-02] MEDS: ERTAPENEM 1GM/NS 100ML 100 ML IV SCH (12:24)
[2017-11-02 15:30] VITALS: BP 106/60
== END 2017-11-02 16:13 | disposition home or self-care (01) | DRG 871 ==
LOC: ER 19:23 → ERHOLD 22:56 → MED/SURG2 23:05
PROVIDERS: ADMIT Internal Medicine; ATTEND Internal Medicine
PROC: 0W9J30Z Drainage of Pelvic Cavity with Drainage Device, Percutaneous Approach (ICD-10-PCS; principal; 2017-10-27)
PROC: 02HV33Z Insertion of Infusion Device into Superior Vena Cava, Percutaneous Approach (ICD-10-PCS; 2017-10-27)
DX: A41.9 Sepsis, unspecified organism (principal); K63.1 Perforation of intestine (nontraumatic); R64 Cachexia; K50.913 Crohn's disease, unspecified, with fistula; E87.1 Hypo-osmolality and hyponatremia; E87.5 Hyperkalemia; N39.0 Urinary tract infection, site not specified; K91.89 Other postprocedural complications and disorders of digestive system; K61.1 Rectal abscess; E86.0 Dehydration; Z90.49 Acquired absence of other specified parts of digestive tract; B96.20 Unspecified Escherichia coli [E. coli] as the cause of diseases classified elsewhere
CPT/HCPCS: 36415; 36568; 49406; 71045; 74018; 74177; 74470; 76700; 76856; 80048; 80053; 80202; 81001; 82150; 82550; 82553; 82607; 83036; 83605; 83690; 83735; 84100; 84484; 84702; 85025; 87040; 87070; 87071; 87075; 87086; 87186; 87205; 87400; 87493; 93005; 96376; 99284; C1729; J0696; J1170; J1956; J2185; J2250; J2550; J3370; J7030; J7050; Q9967

== ENCOUNTER → 2018-10-15 | Day surgery (SDC) | payer OTHER ==
[2018-10-13 11:19] LABS: BASOPHILS % 0.6 % (0.0-1.0); EOSINOPHILS # (AUTO) 0.2 (0.0-0.4); EOSINOPHILS % 3.4 % (0.0-6.0); HEMATOCRIT 31.7 % (34.2-44.1); HEMOGLOBIN 9.9 g/dL (12.0-16.0); LYMPHOCYTES # (AUTO) 2.7 (1.0-3.2); LYMPHOCYTES % 44.3 % (18.0-39.1); MEAN CORPUSCULAR HEMOGLOBIN 25.8 pg (28-32); MEAN CORPUSCULAR HGB CONC 31.2 g/dL (31-35); MEAN CORPUSCULAR VOLUME 82.8 fL (81-99); MONOCYTES # (AUTO) 0.7 (0.2-0.8); MONOCYTES % 11.8 % (4.4-11.3); NEUTROPHILS # (AUTO) 2.5 (2.1-6.9); NEUTROPHILS % 39.7 % (38.7-80.0); PLATELET COUNT 258 x10e3/uL (140-360); RED BLOOD COUNT 3.83 x10e6/uL (3.6-5.1); RED CELL DISTRIBUTION WIDTH 14.5 % (11.7-14.4)
[2018-10-13 11:34] LABS: INR 1.05; PROTHROMBIN TIME 14.6 seconds (11.9-14.5)
[2018-10-13 11:36] LABS: CARBON DIOXIDE 26 mmol/L (22-29); CHLORIDE 101 mmol/L (98-107); POTASSIUM 3.4 mmol/L (3.5-5.1); SODIUM 137 mmol/L (136-145)
[2018-10-13 11:37] LABS: ALANINE AMINOTRANSFERASE 16 IU/L (0-55); ALBUMIN 3.3 g/dL (3.5-5.0); ALBUMIN/GLOBULIN RATIO 0.9 (0.8-2.0); ALKALINE PHOSPHATASE 127 IU/L (40-150); ANION GAP 13.4 mmol/L (8-16); BLOOD UREA NITROGEN 24 mg/dL (7-26); BUN/CREATININE RATIO 32 (6-25); CALCIUM 9.2 mg/dL (8.4-10.2); CREATININE, SERUM 0.75 mg/dL (0.57-1.11); EST GLOMERULAR FILTRATION RATE > 60 ML/MIN (60-); GLUCOSE 117 mg/dL (74-118)
--- NOTE | 2018-10-13 11:55 | Diagnostic Imaging Report ---
EXAMINATION: CHEST 2 VIEWS INDICATION: Pre-op COMPARISON: Chest radiograph 10/25/2017. FINDINGS: TUBES and LINES: Right-sided chest port with catheter tip overlying the mid SVC. LUNGS: Lungs are well inflated. Lungs are clear. There is no evidence of pneumonia or pulmonary edema. PLEURA: No pleural effusion or pneumothorax. HEART AND MEDIASTINUM: The cardiomediastinal silhouette is unremarkable. BONES AND SOFT TISSUES: No acute osseous lesion. Soft tissues are unremarkable. UPPER ABDOMEN: No free air under the diaphragm. IMPRESSION: No acute radiographic abnormality. Signed by: Dr. Milagro Andrew MD on 10/13/2018 11:52 AM
[~2018-10-15] MED LIST changes: +CEFAZOLIN SOD 2 GM/D5W 50ML 50 ML IV ONE; +CIPRO500 MG PO; +DESFLURANE 240 ML BTL INH ONE; +ELIQUIS PO; +ENTYVIO IV; +FENTANYL CITRATE/PF 100MCG/2 ML INJ ONE; +FLAGYL250 MG PO; +HEPARIN SOD (PORCINE) 1000 UNIT/ML SDV ONE; +HYDROMORPHONE 2MG/ML 2 MG/ML ML ONE; +IBUPROFEN600 MG PO; +KETOROLAC TROMETHAMINE 30 MG/ML VIAL ONE; +LIDOCAINE HCL 1% LOCAL INJ 20 ML VIAL ONE; +LIDOCAINE HCL 2% LOCAL INJ 5 ML SDV VIAL INJ ONE; +MIDAZOLAM HCL 2 MG/2 ML VIAL ONE; +PROPOFOL IV EMULSION 10 MG/ML 20 ML VIAL ONE; +SODIUM CHLORIDE 0.9% 100 ML ONE; +TPN ELECTROLYTE20 M1 IV
--- OUTSIDE RECORDS SUMMARY | 2018-10-15 11:28 | XMS REPORT | Clinical Summary ---
Author Author [facility] Organization [facility] Address Unknown Phone Unavailable Care Team Providers Care Ginner Name Role Phone Abdias Salter MD PCP Allergies Not on File Medications Not on file Active Problems Not on file Social History Date Tobacco Use Types Packs/Day Years Used Never Assessed Sex Assigned at Date Recorded Not on file Industry Job Start Date Occupation Not on file Not on file Not on file Travel End Travel History Travel Start No recent travel history available. Last Filed Vital Signs Not on file Plan of Treatment Health Maintenance Due Date Last Done Comments CERVICAL CANCER SCREENING 12/29/2007 INFLUENZA VACCINE 04/07/2018 Procedures Comments Procedure Name Priority Date/Time Associated Diagnosis ZZESTIMATED GFR Routine 04/13/2018 11:00 AM CDT HC COMPLETE BLD COUNT Routine 04/13/2018 Crohn's disease with W/AUTO DIFF 11:00 AM CDT complication, unspecified gastrointestinal tract location Fistula of intestine VITAMIN D 25 HYDROXY Routine 04/13/2018 Crohn's disease with LEVEL 11:00 AM CDT complication, unspecified gastrointestinal tract location Fistula of intestine TRIGLYCERIDES Routine 04/13/2018 Crohn's disease with 11:00 AM CDT complication, unspecified gastrointestinal tract location Fistula of intestine PHOSPHORUS LEVEL Routine 04/13/2018 Crohn's disease with 11:00 AM CDT complication, unspecified gastrointestinal tract location Fistula of intestine MAGNESIUM LEVEL Routine 04/13/2018 Crohn's disease with 11:00 AM CDT complication, unspecified gastrointestinal tract location Fistula of intestine COMPREHENSIVE METABOLIC Routine 04/13/2018 Crohn's disease with PANEL 11:00 AM CDT complication, unspecified gastrointestinal tract location Fistula of intestine ZZESTIMATED GFR Routine 04/05/2018 3:00 PM CDT HC COMPLETE BLD COUNT Routine 04/05/2018 Intestinal fistula W/AUTO DIFF 3:00 PM CDT Chronic disease TRIGLYCERIDES Routine 04/05/2018 Intestinal fistula 3:00 PM CDT Chronic disease PHOSPHORUS LEVEL Routine 04/05/2018 Intestinal fistula 3:00 PM CDT Chronic disease MAGNESIUM LEVEL Routine 04/05/2018 Intestinal fistula 3:00 PM CDT Chronic disease COMPREHENSIVE METABOLIC Routine 04/05/2018 Intestinal fistula PANEL 3:00 PM CDT Chronic disease ZZESTIMATED GFR Routine 03/29/2018 2:30 PM CDT HC COMPLETE BLD COUNT Routine 03/29/2018 Intestinal fistula W/AUTO DIFF 2:30 PM CDT TRIGLYCERIDES Routine 03/29/2018 Intestinal fistula 2:30 PM CDT PHOSPHORUS LEVEL Routine 03/29/2018 Intestinal fistula 2:30 PM CDT MAGNESIUM LEVEL Routine 03/29/2018 Intestinal fistula 2:30 PM CDT COMPREHENSIVE METABOLIC Routine 03/29/2018 Intestinal fistula PANEL 2:30 PM CDT after 10/14/2017 Results * Estimated GFR (04/13/2018 11:00 AM CDT) Only the most recent of 3 results within the time period is included. GFR Non Af Amer 84 mL/min/1.73 m2 [facility] DEPARTMENT OF PATHOLOGY AND GENOMIC MEDICINE GFR Af Amer >90 mL/min/1.73 m2 [facility] DEPARTMENT OF Comment: PATHOLOGY AND Chronic kidney disease: <60 GENOMIC MEDICINE mL/min/1.73m2 Kidney failure: <15 mL/min/1.73m2 The estimated GFR is calculated from the IDMS-traceable Modification of Diet in Renal Disease Equation. The accuracy of the calculation is poor when the creatinine is normal. Calculated values >90 mL/min/1.73m2 are not reported. This equation has not been validated in children (<18 years), women, the elderly (>70 years), or ethnic groups other than Caucasians and Americans. Specimen Plasma specimen Performing Organization Address City/State/Zipcode Phone Number [facility] [address] [place] [address] PATHOLOGY AND GENOMIC MEDICINE * Vitamin D 25 hydroxy level (04/13/2018 11:00 AM CDT) Vitamin D, 25-hydroxy 26.1 (L) 30.0 - 150.0 ng/mL [facility] DEPARTMENT OF Comment: PATHOLOGY AND This assay reports the sum of GENOMIC MEDICINE 25-hydroxy vitamin D3 and 25-hydroxy vitamin D2. Reference range: 0-17 years: Deficiency: less than 20ng/mL Optimum level: greater than or equal to 20 ng/mL. 18 years and older: Deficiency: less than 20ng/mL Insufficiency: 20-29 ng/mL Optimum Level: 30-80 ng/mL The assay reportable range is 3.4155.9 ng/mL. Levels higher than 150 ng/mL may be associated with toxicity. If toxicity is clinically suspected and the reported result is >155.9 ng/mL,contact lab for alternative methods to obtain a definitivelevel. If separate quantitation of 25-hydroxy vitamin D3 and 25-hydroxy vitamin D2 is needed, please contact lab for alternative methods. Specimen Blood Performing Organization Address City/State/Zipcode Phone Number [facility] DEPARTMENT OF [address] [place] [address] PATHOLOGY AND GENOMIC MEDICINE * CBC with platelet and differential (04/13/2018 11:00 AM CDT) Only the most recent of 3 results within the time period is included. WBC 4.42 (L) 4.50 - 11.00 k/uL [facility] DEPARTMENT OF PATHOLOGY AND GENOMIC MEDICINE RBC 3.74 (L) 4.20 - 5.50 m/uL [facility] DEPARTMENT OF PATHOLOGY AND GENOMIC MEDICINE HGB 10.2 (L) 12.0 - 16.0 g/dL [facility] DEPARTMENT OF PATHOLOGY AND GENOMIC MEDICINE HCT 32.9 (L) 37.0 - 47.0 % [facility] DEPARTMENT OF PATHOLOGY AND GENOMIC MEDICINE MCV 88.0 82.0 - 100.0 fL [facility] DEPARTMENT OF PATHOLOGY AND GENOMIC MEDICINE MCH 27.3 27.0 - 34.0 pg [facility] DEPARTMENT OF PATHOLOGY AND GENOMIC MEDICINE MCHC 31.0 31.0 - 37.0 g/dL [facility] DEPARTMENT OF PATHOLOGY AND GENOMIC MEDICINE RDW - SD 44.8 37.0 - 55.0 fL [facility] DEPARTMENT OF PATHOLOGY AND GENOMIC MEDICINE MPV 10.3 8.8 - 13.2 fL [facility] DEPARTMENT OF PATHOLOGY AND GENOMIC MEDICINE Platelet count 295 150 - 400 k/uL [facility] DEPARTMENT OF PATHOLOGY AND GENOMIC MEDICINE Nucleated RBC 0.00 /100 WBC [facility] DEPARTMENT OF PATHOLOGY AND GENOMIC MEDICINE Neutrophils 43.4 39.0 - 69.0 % [facility] DEPARTMENT OF PATHOLOGY AND GENOMIC MEDICINE Lymphocytes 39.4 25.0 - 45.0 % [facility] DEPARTMENT OF PATHOLOGY AND GENOMIC MEDICINE Monocytes 13.3 (H) 0.0 - 10.0 % [facility] DEPARTMENT OF PATHOLOGY AND GENOMIC MEDICINE Eosinophils 3.2 0.0 - 5.0 % [facility] DEPARTMENT OF PATHOLOGY AND GENOMIC MEDICINE Basophils 0.5 0.0 - 1.0 % [facility] DEPARTMENT OF PATHOLOGY AND GENOMIC MEDICINE Specimen Blood Performing Organization Address [facility] Phone Number [address] [place] [address] PATHOLOGY AND [facility] * Triglycerides (04/13/2018 11:00 AM CDT) Only the most recent of 3 results within the time period is included. Triglycerides 237 (H) <150 mg/dL [facility] DEPARTMENT OF PATHOLOGY AND GENOMIC MEDICINE Specimen Plasma specimen Performing Organization Address [facility] Phone Number [address] [place] [address] [facility] * Phosphorus level (04/13/2018 11:00 AM CDT) Only the most recent of 3 results within the time period is included. Phosphorus 3.8 2.4 - 4.5 mg/dL [facility] PATHOLOGY AND GENOMIC MEDICINE Specimen Plasma specimen Performing Organization Address [facility] Phone Number [address] [place] [address] PATHOLOGY AND [facility] * Magnesium level (04/13/2018 11:00 AM CDT) Only the most recent of 3 results within the time period is included. Magnesium 2.0 1.6 - 2.6 mg/dL [facility] DEPARTMENT OF PATHOLOGY AND GENOMIC MEDICINE Specimen Plasma specimen Performing Organization Address City/[facility]/Zipcode Phone Number [facility] [address] [place] [address] PATHOLOGY AND GENOMIC MEDICINE * Comprehensive metabolic panel (04/13/2018 11:00 AM CDT) Only the most recent of 3 results within the time period is included. Sodium 140 135 - 148 mEq/L [facility] DEPARTMENT OF PATHOLOGY AND GENOMIC MEDICINE Potassium 4.6 3.5 - 5.0 mEq/L [facility] DEPARTMENT OF PATHOLOGY AND GENOMIC MEDICINE Chloride 102 98 - 112 mEq/L [facility] DEPARTMENT OF PATHOLOGY AND GENOMIC MEDICINE CO2 28 24 - 31 mEq/L [facility] DEPARTMENT OF PATHOLOGY AND GENOMIC MEDICINE Anion gap 10@ANIO 7 - 15 mEq/L [facility] DEPARTMENT OF PATHOLOGY AND GENOMIC MEDICINE BUN 32 (H) 6 - 20 mg/dL [facility] DEPARTMENT OF PATHOLOGY AND GENOMIC MEDICINE Creatinine 0.8 0.5 - 0.9 mg/dL [facility] DEPARTMENT OF PATHOLOGY AND GENOMIC MEDICINE Glucose 98 65 - 99 mg/dL [facility] DEPARTMENT OF PATHOLOGY AND GENOMIC MEDICINE Calcium 9.1 8.3 - 10.2 mg/dL [facility] DEPARTMENT OF PATHOLOGY AND GENOMIC MEDICINE Protein 6.8 6.3 - 8.3 g/dL [facility] DEPARTMENT OF Comment: PATHOLOGY AND [place] GENOMIC MEDICINE 4.6-7.0 g/dL 1 week 4.4-7.6 g/dL 7 months-1year 5.1-7.3 g/dL 1-2 years5.6-7 .5 g/dL >3 years6.0-8 .0 g/dL 18-150 6.3-8.3 g/dL Albumin 3.6 3.5 - 5.0 g/dL [facility] DEPARTMENT OF PATHOLOGY AND GENOMIC MEDICINE A/G ratio 1.1 0.7 - 3.8 [facility] DEPARTMENT OF PATHOLOGY AND GENOMIC MEDICINE Alkaline phosphatase 136 (H) 35 - 104 U/L [facility] DEPARTMENT OF PATHOLOGY AND GENOMIC MEDICINE AST 18 10 - 35 U/L [facility] DEPARTMENT OF PATHOLOGY AND GENOMIC MEDICINE ALT 14 5 - 50 U/L [facility] DEPARTMENT OF PATHOLOGY AND GENOMIC MEDICINE Total bilirubin <0.2 0.0 - 1.2 mg/dL [facility] DEPARTMENT OF PATHOLOGY AND GENOMIC MEDICINE Specimen Plasma specimen Performing Organization Address City/State/Zipcode Phone Number [facility] [place] [address] [address] [address] PATHOLOGY AND GENOMIC MEDICINE after 10/14/2017 Insurance Payer Benefit Subscriber ID Type Phone Address Plan / Group [facility] [employer] - xxxxxxxxx HMO [facility] Advance Directives Patient has advance care planning documents on file. For more information, verona boland contact: Rajesh Johnson [address] [place] [address]
--- OUTSIDE RECORDS SUMMARY | 2018-10-15 11:28 | XMS REPORT | Clinical Summary ---
Author Author [facility] Organization [facility] Address Unknown Phone Unavailable Care Team Providers Care [employer] Name Role Phone Abdias Salter PCP Allergies Comments Active Allergy Reactions Severity Noted Date Adhesive Hives, Rash Low 12/14/2015 Morphine Shortness Of High 12/14/2015 Breath, Rash, Other (See Comments) Headache/makes her more nauseated Ondansetron Hcl (Pf) Nausea And 12/14/2015 Vomiting, Other (See Comments) Medications End Date Status Medication Sig Dispensed Refills Start Date Active DIPHENHYDRAMINE HCL Take 25 mg by 0 (SLEEP AID, mouth nightly DIPHENHYDRAMINE, ORAL) . Active midodrine (PROAMATINE) Take 2.5 mg 0 2.5 MG tablet by mouth 2 (two) times daily. Active promethazine (PHENERGAN) Take 25 mg by 0 25 MG tablet mouth 3 (three) times daily. Active loratadine (CLARITIN) 10 Take 10 mg by 0 mg tablet mouth daily. Active zolpidem (AMBIEN) 10 mg Take 10 mg by 0 tablet mouth every night as needed for Insomnia. Active HYDROcodone-acetaminophen Take 1 tablet 0 (NORCO 10-325) 10-325 mg by mouth per tablet every 6 (six) hours as needed for Pain. Active pantoprazole (PROTONIX) Take 40 mg by 0 40 MG tablet mouth daily. Active omeprazole (PRILOSEC) 10 Take 10 mg by 0 MG capsule mouth daily. Active Problems Problem Noted Date Ulcerative colitis 01/03/2016 Ileostomy, has currently 01/01/2016 Ileostomy care 01/01/2016 Social History Date Tobacco Use Types Packs/Day Years Used Current Every Day Smoker 1 7 Smokeless Tobacco: Never Used Tobacco Cessation: Ready to Quit: Yes; Counseling Given: Yes Alcohol Use Drinks/Week oz/Week Comments No Sex Assigned at Date Recorded Not on file Industry Job Start Date Occupation Not on file Not on file Not on file Travel End Travel History Travel Start No recent travel history available. Last Filed Vital Signs Not on file Plan of Treatment Not on file Results Not on fileafter 10/14/2017 Insurance Payer Benefit Subscriber ID Type Phone Address Plan / Group [facility] H[facility]/POS CARE POS SELECT CHOICE Advance Directives For more information, please contact: [facility] [address] [place] [address] Date Inactivated Comments Code Status Date Activated 01/04/2016 2:07 PM Full Code 01/01/2016 10:04 AM This code status was determined by: Patient 01/01/2016 10:04 AM Full Code 01/01/2016 6:06 AM This code status was determined by: Patient
--- OUTSIDE RECORDS SUMMARY | 2018-10-15 11:30 | XMS REPORT | Summary of Care ---
Author Author [facility] General Surgery [facility] General Surgery [place] Address Unknown Phone Unavailable Encounter HQ Faustina(FIN) [id number] Date(s): 12/24/17 - 12/24/17 [facility] General Surgery [place] [address] [facility] [address] [place], [place] [address]- [phone] Discharge Disposition: Home or Self Care Attending Physician: Puja Arguelles MD Referring Physician: Antonio Tello MD Vital Signs Most recent to 1 oldest [Reference Range]: Temperature Oral 98.7 DegF [96.4-99.1 DegF] (12/24/17 10:30 AM) Blood Pressure 115/78 mmHg [90-140/60-90 mmHg] (12/24/17 10:30 AM) Peripheral Pulse 116 bpm Rate [60-100 bpm] *HI* (12/24/17 10:30 AM) Weight 42.364 kg (12/24/17 10:30 AM) Problem List Condition Effective Dates Status Health Status Informant Crohn's Active disease(Confirmed) Moderate Active Chronic ; protein-calorie malnutrition(Confirm ed) Ulcerative Active colitis(Confirmed) UTI - Urinary tract Resolved infection(Confirmed) VRE(Confirmed)1, 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 Allergies, Adverse Reactions, Alerts Substance Reaction Severity Status morphine Active Zofran Active Surgical Tape1 Active 1use paper tape Medications No Known Medications Results No data available for this section Immunizations No data available for this section Procedures Procedure Date Related Diagnosis Body Site Status Creation of ileostomy Completed Drainage of abscess Completed Insertion of Port-a-cath Completed Total colectomy Completed Social History Social History Type Response Alcohol Never Smoking Status Current every day smoker; Type: Cigarettes; Ready to change: No; Concerns about tobacco use in household: No; Exposure to Tobacco Smoke None; Cigarette Smoking Last 365 Days Yes; Reg Smoking Cessation Counseling Yes; Tobacco use per day: 10; Number of years: 8; entered on: 12/24/17 Assessment and Plan No data available for this section
--- OUTSIDE RECORDS SUMMARY | 2018-10-15 11:30 | XMS REPORT | Summary of Care ---
Author Author [facility] Organization [facility] Address Unknown Phone Unavailable Encounter GEO Weems(FIN) [id number] Date(s): 12/25/17 - 12/25/17 [facility] [address] [place] [address]- [phone] Discharge Disposition: Home or Self Care Attending Physician: Puja Arguelles MD Referring Physician: Puja Arguelles MD Vital Signs No data available for this section Problem List Condition Effective Dates Status Health Status Informant Crohn's Active disease(Confirmed) Moderate Active Chronic ; protein-calorie malnutrition(Confirm ed) Ulcerative Active colitis(Confirmed) UTI - Urinary tract Resolved infection(Confirmed) VRE(Confirmed)1, 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 Allergies, Adverse Reactions, Alerts Substance Reaction Severity Status morphine Active Zofran Active Surgical Tape1 Active 1use paper tape Medications No data available for this section Results CHEM PANEL Most recent to 1 oldest [Reference Range]: eGFR 99 mL/min/1.73m2 1 *NA* (12/25/17 3:50 PM) POC Creatinine 0.8 mg/dL [0.5-1.4 mg/dL] (12/25/17 3:50 PM) 1Result Comment: The eGFR is calculated using the CKD-EPI formula. In most young, healthy individuals the eGFR will be >90 mL/min/1.73m2. The eGFR declines with age. An eGFR of 60-89 may be normal in some populations, particularly the elderly, for whom the CKD-EPI formula has not been extensively validated. Use of the eGFR is not recommended in the following populations: Individuals with unstable creatinine concentrations, including patients and those with serious co-morbid conditions. Patients with extremes in muscle mass or diet. The data above are obtained from the National Kidney Disease Education Program ( NKDEP) which additionally recommends that when the eGFR is used in patients with extremes of body mass index for purposes of drug dosing, the eGFR should be mul tiplied by the estimated BMI. URINE CHEM Most recent to 1 oldest [Reference Range]: U Preg [Negative] Negative (12/25/17 3:13 PM) Immunizations No data available for this section [...]
--- OUTSIDE RECORDS SUMMARY | 2018-10-15 11:30 | XMS REPORT | Continuity of Care Document ---
Author Author [facility] Interface Address Unknown Phone Unavailable Problems Problem Status Onset Date Classification Date Reported Comments Source ABDOMINOPELVIC ABSCESS Active 07/04/2018 [facility] N/A Active 07/04/2018 [facility] INTRA- ABDOMINAL ABSCESS Active 05/21/2018 [facility] SEIZURE- NEW ONSET Active 04/29/2018 [facility] ABDOMINAL ABSCESS, INTRACTABLE ABDOMINAL Active 04/29/2018 [facility] CROHN'S DISEASE Active 02/02/2018 [facility] ABDOMINAL ABSCESS Active 02/02/2018 [facility] CROHNS Active 12/30/2017 [facility] INFECTION IN ABD, PROTEIN-CALORIC MALNUT Active 12/30/2017 [facility] K63.2 ORAL Active 12/25/2017 [facility] Sepsis, unspecified organism 12/18/2017 03/17/2018 [facility] 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 [facility] CHRONS DISEASE Active 11/24/2017 [facility] ABDOMINAL PAIN Active 10/10/2013 [facility] Crohn's disease Active Problem 03/17/2018 [facility] Moderate protein-calorie malnutrition Active Problem 03/17/2018 [facility] Ulcerative colitis Active Problem 03/17/2018 [facility] UTI - Urinary tract infection Resolved Problem 03/17/2018 [facility] Peritonitis, unspecified 01/13/2018 [facility] Peritoneal abscess 03/17/2018 [facility] Portal vein thrombosis 03/17/2018 [facility] Crohn's disease, unspecified, without complications 01/13/2018 [facility] Moderate protein-calorie malnutrition 01/13/2018 [facility] Body mass index 19.9 or less, adult 03/17/2018 [facility] Cellulitis of abdominal wall 01/13/2018 [facility] Anemia in other chronic diseases classified elsewhere 01/13/2018 [facility] Nicotine dependence, cigarettes, uncomplicated 03/17/2018 [facility] Chronic pain syndrome 03/17/2018 [facility] Adjustment disorder with mixed anxiety and depressed mood 01/13/2018 [facility] Anemia of chronic disease Active Problem 03/17/2018 [facility] Unspecified severe protein-calorie malnutrition 03/17/2018 [facility] Crohn's disease of small intestine with fistula 03/17/2018 [facility] Pouchitis 03/17/2018 [facility] Crohn's disease of small intestine with abscess 03/17/2018 [facility] Major depressive disorder, single episode, unspecified 03/17/2018 [facility] Anemia, unspecified 03/17/2018 [facility] Enterococcus as the cause of diseases classified elsewhere 03/17/2018 [facility] 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 03/17/2018 [facility] Acquired absence of other specified parts of digestive tract 03/17/2018 [facility] Ileostomy status 03/17/2018 [facility] CROHN'S DISEASE, UNSPECIFIED, WITHOUT CO Active [facility] PERITONITIS, UNSPECIFIED Active [facility] ABD PAIN Active [facility] PERITONEAL ABSCESS Active [facility] UNSPECIFIED ABDOMINAL PAIN Active [facility] UNSPECIFIED CONVULSIONS Active [facility] Medications Medication Details Route Status Patient Instructions Ordering Provider Order Date Source apixaban 5 mg oral tablet See Instructions, Take 10 mg (2 tab) PO Q12H x 7 days, then 5 mg (1 tab) PO Q12H thereafter for treatment of pulmonary embolism * Cancel prior apixaban rx*, # 70 tab, 1 Refill(s), Pharmacy: [facility] [id number] Active 02/05/2018 [facility] apixaban 5 MG Oral Tablet [Eliquis] 5 mg, PO, Q12H, # 60 tab, 1 Refill(s), Pharmacy: [facility] [id number] Inactive 02/05/2018 [facility] apixaban 5 MG Oral Tablet [Eliquis] 5 mg, PO, Q12H, # 60 tab, 0 Refill(s), Pharmacy: [facility] [id number] Inactive 02/05/2018 [facility] Trazodone 50 mg, 1 tab, Route: PO, Drug form: TAB, Bedtime, Dosing Weight 43.636, kg, Start date: 02/04/18 21:00:00 CDT, Duration: 30 day, Stop date: 03/05/18 21:00:00 CDTNotes: (Same As: Emilio) No Longer Active 02/05/2018 [facility] TPN - pts own med 1,850 mL TPN - pts own med, 1,850 mL, Drug form: MISC, Route: IV, 02/04/18 21:00:00 CDT, Duration: 15 hr, Stop date: 02/05/18 11:59:00 CDT No Longer Active 02/05/2018 [facility] Heparin 80 unit/kg Bolus (Heparin Dosing Weight) Route: IVP, PRN, 3,600 unit, 3.6 mL, Drug form: INJ, PRN, Heparin Protocol, Start date: 02/04/18 20:49:00 CDT Stop date: 03/06/18 20:48:00 CDT, 30 day No Longer Active 02/05/2018 [facility] heparin additive 25,000 unit [18 unit/kg/hr] + Premix Diluent Dextrose 5% 500 mL 500 mL, Rate: 16.11 ml/hr, Infuse over: 31 hr, Route: IV, Dosing Weight 44.74 kg, Total Volume: 500 mL, Start date: 02/04/18 20:49:00 CDT, Duration: 30 day, Stop date: 03/06/18 20:48:00 CDT, 1.39, m2 No Longer Active 02/05/2018 [facility] Heparin - one time bolus for DVT/PE 3,200 unit, 3.2 mL, Route: IVP, Drug form: INJ, ONCE, Dosing Weight 43.636, kg, Priority: STAT, Start date: 02/04/18 20:49:00 CDT, Stop date: 02/04/18 20:49:00 CDT Inactive 02/05/2018 [facility] Heparin 40 unit/kg Bolus (Heparin Dosing Weight) Route: IVP, PRN, 1,800 unit, 1.8 mL, Drug form: INJ, PRN, Heparin Protocol, Start date: 02/04/18 20:49:00 CDT Stop date: 03/06/18 20:48:00 CDT, 30 day No Longer Active 02/05/2018 [facility] Midodrine 5 mg, 1 tab, Route: PO, Drug form: TAB, Q8Hnow, Dosing Weight 43.636, kg, Start date: 02/04/18 20:00:00 CDT, Duration: 30 day, Stop date: 03/06/18 12:00:00 CDTNotes: (Same as:Proamatine) No Longer Active 02/05/2018 [facility] Eliquis 2.5 mg, Route: PO, Drug form: TAB, ONCE, Dosing Weight 43.636, kg, Start date: 02/04/18 16:59:00 CDT, Stop date: 02/04/18 16:59:00 CDT Inactive 02/04/2018 [facility] micafungin 100 mg, Route: IV, [id number], Dosing Weight 43.636, kg, Start date: 02/04/18 13:00:00 CDT, Duration: 10 day, Stop date: 02/13/18 13:00:00 CDT, ABX Indication: Intra-abdominal InfectionNotes: Same as Mycamine Protect from light MEDICATION WASTE Product Size: 100 mg Product Wasted: ___ mg No Longer Active 02/04/2018 [facility] Midodrine 2.5 mg, 0.5 tab, Route: PO, Drug form: TAB, BID, Dosing Weight 43.636, kg, Priority: NOW, Start date: 02/04/18 11:42:00 CDT, Duration: 30 day, Stop date: 03/06/18 9:00:00 CDTNotes: (Same as:Proamatine) Inactive 02/04/2018 [facility] Oxycodone Hydrochloride 5 MG Oral Tablet 10 mg, 2 tab, Route: PO, Drug form: TAB, Q8H, Dosing Weight 43.636, kg, PRN Pain Score 4-6, Start date: 02/04/18 9:35:00 CDT, Duration: 30 day, Stop date: 03/06/18 9:34:00 CDTNotes: (Same as: Roxicodone) No Longer Active 02/04/2018 [facility] Protonix 40 mg, 1 tab, Route: PO, Drug form: ECTAB, Daily, Dosing Weight 43.636, kg, Start date: 02/04/18 9:00:00 CDT, Duration: 30 day, Stop date: 03/05/18 9:00:00 CDTNotes: Tablet should not be chewed or crushed. (Same as: Protonix) No Longer Active 02/04/2018 [facility] Omnipaque 300 100 ml, Route: IV, Drug Form: SOLN, Dosing Weight 43.636, kg, ONCE, Start date: 02/04/18 8:03:00 CDT, Stop date: 02/04/18 8:03:00 CDTNotes: (Same as:Omnipaque 300). WASTE: F/P - Black; E - Municipal Trash Bin Inactive 02/04/2018 [facility] Omnipaque 300 100 ml, Route: IV, Drug Form: SOLN, Dosing Weight 43.636, kg, ONCE, Start date: 02/04/18 6:51:00 CDT, Stop date: 02/04/18 6:51:00 CDTNotes: (Same as:Omnipaque 300). WASTE: F/P - Black; E - [facility] Trash Bin Inactive 02/04/2018 [facility] Promethazine 12.5 mg, 0.5 mL, Route: IVPB, Q6H, Dosing Weight 43.636, kg, PRN Nausea, Start date: 02/04/18 0:26:00 CDT, Duration: 30 day, Stop date: 03/06/18 0:25:00 CDTNotes: Do not give IV push. (Same as: Phen ergan) No Longer Active 02/04/2018 [facility] Dilaudid 1 mg, 1 mL, Route: IV, Drug form: SOLN, Q4H, Dosing Weight 43.636, kg, PRN Pain Score 7-10, Start date: 02/04/18 0:11:00 CDT, Duration: 30 day, Stop date: 03/06/18 0:10:00 CDTNotes: (Same as: Dilaudid) No Longer Active 02/04/2018 [facility] meropenem 500 mg, Route: IVPB, [id number], Dosing Weight 43.636, kg, CrCL >=50ml/min, Extended infusion, infuse over 3 hours, Start date: 02/04/18 0:00:00 CDT, Duration: 5 day, Stop date: 02/08/18 23:00:00 CDT, ABX Indication: Intra-abdominal InfectionNotes: Same as Merrem MEDICATION WASTE Product Size: 500 mg Product Wasted: ___ mg No Longer Active 02/04/2018 [facility] linezolid 600 mg, 300 mL, Route: IVPB, Drug form: SOLN, [id number], Dosing Weight 43.636, kg, Start date: 02/04/18 0:00:00 CDT, Duration: 30 day, Stop date: 03/05/18 12:00:00 CDT, ABX Indication: Intra-abdominal Inf ectionNotes: (Same as: Zyvox) MEDICATION WASTE Product Size: 600 mg Product Wasted: ___ mg No Longer Active 02/04/2018 [facility] heparin 5,000 unit, 1 mL, Route: SUB-Q, Drug form: INJ, Q8H, Dosing Weight 43.636, kg, Start date: 02/04/18 0:00:00 CDT, Duration: 30 day, Stop date: 03/05/18 16:00:00 CDTNotes: porcine heparin Inactive 02/04/2018 [facility] Magnesium Sulfate 1 gm, 100 mL, Route: IVPB, Drug form: INJ, ONCE, Dosing Weight 43.636, kg, Start date: 02/03/18 23:24:00 CDT, Stop date: 02/03/18 23:24:00 CDTNotes: WASTE: F/P - Sink; E - [facility] Trash Bin No Longer Active 02/04/2018 [facility] NS 1,000 mL 1,000 mL, Rate: 75 ml/hr, Infuse over: 13.3 hr, Route: IV, Dosing Weight 43.636 kg, Total Volume: 1,000, Start date: 02/03/18 23:22:00 CDT, Duration: 24 hr, Stop date: 02/04/18 23:21:00 CDT, 1.37, m2 No Longer Active 02/04/2018 [facility] Promethazine 25 mg, 1 tab, Route: PO, Drug form: TAB, Q8H, Dosing Weight 43.636, kg, PRN as needed for nausea/vomiting, Start date: 02/03/18 23:18:00 CDT, Duration: 30 day, Stop date: 03/05/18 23:17:00 CDTNotes: (Same as: Phenergan) No Longer Active 02/04/2018 [facility] Acetaminophen 325 MG / Hydrocodone Bitartrate 10 MG Oral Tablet 1 tab, Route: PO, Drug Form: TAB, Dosing Weight 43.636, kg, Q8H, PRN Pain Score 4-6, Start date: 02/03/18 23:18:00 CDT, Duration: 30 day, Stop date: 03/05/18 23:17:00 CDTNotes: Do not exceed 4gm/day of acetaminophen. (Same as: [place] 325/10) No Longer Active 02/04/2018 [facility] Alprazolam 1 MG Oral Tablet 1 mg, 1 tab, Route: PO, Drug form: TAB, TID, Dosing Weight 43.636, kg, PRN Anxiety, Start date: 02/03/18 23:18:00 CDT, Duration: 30 day, Stop date: 03/05/18 23:17:00 CDTNotes: With food or milk (Same as: Xanax) No Longer Active 02/04/2018 [facility] Dilaudid 4 mg, 1 tab, Route: PO, Drug form: TAB, Q4H, Dosing Weight 43.636, kg, PRN Pain Score 7-10, Start date: 02/03/18 22:41:00 CDT, Duration: 30 day, Stop date: 03/05/18 22:40:00 CDTNotes: (Same as: Dilaudid) No Longer Active 02/04/2018 [facility] apixaban 2.5 MG Oral Tablet [Eliquis] 2.5 mg, PO, ONCE, 0 Refill(s) No Longer Active 02/04/2018 [facility] Please update height, weight, allergies on profile Please update height, weight, allergies on profile, ATTN:RN, Drug form: MISC, Route: MISC, Q30Min, 02/03/18 20:00:00 CDT, Duration: 3 hr, Stop date: 02/03/18 22:30:00 CDT Inactive 02/04/2018 [facility] Docusate 100 mg, 1 cap, Route: PO, Drug form: CAP, BID, Dosing Weight 41.818, kg, PRN as needed for constipation, Start date: 02/03/18 11:13:00 CDT, Duration: 30 day, Stop date: 03/05/18 11:12:00 CDTNotes: (Same as: Colace) (Do Not Crush) No Longer Active 02/03/2018 [facility] Acetaminophen 325 MG / Hydrocodone Bitartrate 5 MG Oral Tablet 1 tab, Route: PO, Drug Form: TAB, Dosing Weight 41.818, kg, Q6H, PRN Pain Score 4-6, Start date: 02/03/18 11:13:00 CDT, Duration: 30 day, Stop date: 03/05/18 11:12:00 CDTNotes: (Same as: [place] 325/5) Do not exceed 4gm/day of acetaminophen. Inactive 02/03/2018 [facility] Acetaminophen 650 mg, 2 tab, Route: PO, Drug form: TAB, Q6H, Dosing Weight 41.818, kg, PRN Pain 1-3/Temp > 100.4 F, Start date: 02/03/18 11:13:00 CDT, Duration: 30 day, Stop date: 03/05/18 11:12:00 CDTNotes: Do not exceed 4 gm/day. (Same as: Tylenol) No Longer Active 02/03/2018 [facility] parenteral nutrition solution 1,550 mL 1,550 mL, Rate: 62.5 ml/hr, Infuse over: 24.8 hr, Route: IV, Dosing Weight 41.818 kg, Total Volume: 1,550, Start date: 01/04/18 22:00:00 CDT, Duration: 1 day, Stop date: 01/05/18 21:59:00 CDT, 1.34, m2 Inactive 01/05/2018 [facility] fat emulsion, intravenous 250 mL IV, 31.25 ml/hr, Start date: 01/04/18 22:00:00 CDT, Duration: 8, 250 ml, 41.818Notes: (Same as: Intralipid, Liposyn) Infuse through a 1.2 micron filter Inactive 01/05/2018 [facility] Remeron 15 mg, 1 tab, Route: PO, Drug form: TAB, Bedtime, Dosing Weight 41.818, kg, Start date: 01/04/18 21:00:00 CDT, Duration: 30 day, Stop date: 02/02/18 21:00:00 CDTNotes: (Same as:Remeron) Inactive 01/05/2018 [facility] Mirtazapine 15 MG Oral Tablet [Remeron] 15 mg, PO, Bedtime, # 30 tab, 0 Refill(s) Active 01/04/2018 [facility] parenteral nutrition solution 1,550 mL 1,550 mL, Rate: 62.5 ml/hr, Infuse over: 24.8 hr, Route: IV, Dosing Weight 41.818 kg, Total Volume: 1,550, Start date: 01/03/18 22:00:00 CDT, Duration: 1 day, Stop date: 01/04/18 21:59:00 CDT, 1.34, m2 No Longer Active 01/04/2018 [facility] parenteral nutrition solution 1,550 mL 1,550 mL, Rate: 62.5 ml/hr, Infuse over: 24.8 hr, Route: IV, Dosing Weight 41.818 kg, Total Volume: 1,550, Start date: 01/02/18 22:00:00 CDT, Duration: 1 day, Stop date: 01/03/18 21:59:00 CDT, 1.34, m2 No Longer Active 01/03/2018 [facility] parenteral nutrition solution 1,550 mL 1,550 mL, Rate: 62.5 ml/hr, Infuse over: 24.8 hr, Route: IV, Dosing Weight 41.818 kg, Total Volume: 1,550, Start date: 01/01/18 22:00:00 CDT, Duration: 1 day, Stop date: 01/02/18 21:59:00 CDT, 1.34, m2 No Longer Active 01/02/2018 [facility] fat emulsion, intravenous 250 mL IV, 31.25 ml/hr, Start date: 01/01/18 22:00:00 CDT, Duration: 8, 250 ml, 41.818Notes: (Same as: Intralipid, Liposyn) Infuse through a 1.2 micron filter No Longer Active 01/02/2018 [facility] Sodium Chloride 0.9% (titrate) 250 mL 250 mL, Rate: To prime line and flush remaining blood products., Dosing Weight 41.818, kg, Route: IV, Total Volume: 250, Priority: Routine, Start Date: 01/01/18 9:51:00 CDT, Duration: 30 day, Stop date: 01/31/18 9:50:00 CDT, Replace Every: 24 hr No Longer Active 01/01/2018 [facility] Oxycodone Hydrochloride 5 MG Oral Tablet 5 mg, 1 tab, Route: PO, Drug form: TAB, Q4H, Dosing Weight 42.273, kg, PRN Pain Score 4-6, Start date: 01/01/18 9:05:00 CDT, Duration: 30 day, Stop date: 01/31/18 9:04:00 CDTNotes: (Same as: Roxicodone) No Longer Active 01/01/2018 [facility] Protonix 40 mg, 1 tab, Route: PO, Drug form: ECTAB, Daily, Dosing Weight 41.818, kg, Start date: 01/01/18 9:00:00 CDT, Duration: 30 day, Stop date: 01/30/18 9:00:00 CDTNotes: Tablet should not be chewed or crushed. (Same as: Protonix) No Longer Active 01/01/2018 [facility] apixaban 2.5 mg, 1 tab, Route: PO, Drug form: TAB, Q12H, Dosing Weight 41.818, kg, Start date: 12/31/17 23:00:00 CDT, Duration: 30 day, Stop date: 01/30/18 11:00:00 CDTNotes: Same as: Eliquis No Longer Active 01/01/2018 [facility] parenteral nutrition solution 1550 mL 1,550 mL, Rate: 62.5 ml/hr, Infuse over: 24.8 hr, Route: IV, Dosing Weight 42.273 kg, Total Volume: 1,550, Start date: 12/31/17 22:00:00 CDT, Duration: 1 day, Stop date: 01/31/18 21:59:00 CDT, 1.35, m2 No Longer Active 01/01/2018 [facility] Trazodone Hydrochloride 50 MG Oral Tablet 50 mg, 1 tab, Route: PO, Drug form: TAB, Bedtime, Dosing Weight 41.818, kg, PRN Insomnia, Start date: 12/31/17 18:53:00 CDT, Duration: 30 day, Stop date: 01/30/18 18:52:00 CDTNotes: (Same As: Desyrel) No Longer Active 12/31/2017 [facility] Magnesium Sulfate 2 gm, 50 mL, Route: IVPB, Drug form: INJ, ONCE, Dosing Weight 41.818, kg, Start date: 12/31/17 18:52:00 CDT, Stop date: 12/31/17 18:52:00 CDTNotes: WASTE: F/P - Sink; E - Municipal Trash Bin Inactive 12/31/2017 [facility] tizanidine 4 mg, 1 tab, Route: PO, Drug form: TAB, Q8H, Dosing Weight 42.273, kg, PRN as needed for muscle spasm, Start date: 12/31/17 10:04:00 CDT, Duration: 30 day, Stop date: 01/30/18 10:03:00 CDTNotes: (Same As: Zanaflex) No Longer Active 12/31/2017 [facility] Oxycodone Hydrochloride 5 MG Oral Tablet 5 mg, 1 tab, Route: PO, Drug form: TAB, Q6H, Dosing Weight 42.273, kg, PRN Pain Score 4-6, Start date: 12/31/17 9:47:00 CDT, Duration: 30 day, Stop date: 01/30/18 9:46:00 CDTNotes: (Same as: Roxicodone) No Longer Active 12/31/2017 [facility] Dilaudid 0.2 mg, 0.2 mL, Route: IVP, Drug form: INJ, Q4H, Dosing Weight 42.273, kg, PRN Pain Score 4-6, Start date: 12/30/17 23:14:00 CDT, Stop date: 01/29/18 23:13:00 CDTNotes: Same as: Dilaudid No Longer Active 12/31/2017 [facility] meropenem + Sodium Chloride 0.9% IV 100 mL 500 mg, Route: IVPB, [id number], Dosing Weight 42.364, kg, CrCL >=50ml/min, Extended infusion, infuse over 3 hours, Start date: 12/30/17 23:00:00 CDT, Duration: 3 day, Stop date: 01/02/18 17:00:00 CDT, ABX Indication: Intra-abdominal InfectionNotes: Same as Merrem MEDICATION WASTE Product Size: 500 mg Product Wasted: ___ mg No Longer Active 12/31/2017 [facility] parenteral nutrition solution 1,550 mL 1,550 mL, Rate: 62.5 ml/hr, Infuse over: 24.8 hr, Route: IV, Dosing Weight 42.273 kg, Total Volume: 1,550, Start date: 12/30/17 22:00:00 CDT, Duration: 1 day, Stop date: 12/31/17 21:59:00 CDT, 1.35, m2 No Longer Active 12/31/2017 [facility] fat emulsion, intravenous 250 mL IV, 31.25 ml/hr, Start date: 12/30/17 22:00:00 CDT, Duration: 8, 250 ml, 42.273Notes: (Same as: Intralipid, Liposyn) Infuse through a 1.2 micron filter No Longer Active 12/31/2017 [facility] Lovenox 40 mg, 0.4 mL, Route: SUB-Q, Drug form: INJ, [id number], Dosing Weight 42.273, kg, For CrCl Notes: (Same as: Lovenox) No Longer Active 12/31/2017 [facility] micafungin 100 mg, Route: IVPB, [id number], Dosing Weight 42.273, kg, Start date: 12/30/17 19:00:00 CDT, Duration: 30 day, Stop date: 01/28/18 19:00:00 CDT, ABX Indication: Intra-abdominal InfectionNotes: Same as Mycamine Protect from light MEDICATION WASTE Product Size: 100 mg Product Wasted: ___ mg No Longer Active 12/31/2017 [facility] linezolid 600 mg, 300 mL, Route: IVPB, Drug form: SOLN, [id number], Dosing Weight 42.273, kg, Start date: 12/30/17 19:00:00 CDT, Duration: 30 day, Stop date: 01/29/18 11:00:00 CDT, ABX Indication: Intra-abdominal InfectionNotes: (Same as: Zyvox) No Longer Active 12/31/2017 [facility] normal saline 0.9% IV 1,000 mL 1,000 mL, Rate: 75 ml/hr, Infuse over: 13.3 hr, Route: IV, Dosing Weight 42.273 kg, Total Volume: 1,000, Start date: 12/30/17 18:03:00 CDT, Duration: 30 day, Stop date: 01/29/18 18:02:00 CDT, 1.35, m2 No Longer Active 12/30/2017 [facility] Omnipaque 300 100 ml, Route: IV, Drug Form: SOLN, Dosing Weight 42.273, kg, ONCE, Start date: 12/30/17 16:19:00 CDT, Stop date: 12/30/17 16:19:00 CDTNotes: (Same as:Omnipaque 300). WASTE: F/P - Black; E - Municipal Trash Bin No Longer Active 12/30/2017 [facility] Sodium Chloride 0.9% (Bolus) IV 1,000 mL, 1,000 ml/hr, Infuse Over: 1 hr, Route: IV, 1,000, Drug form: INJ, ONCE, Priority: STAT, Dosing Weight 42.273 kg, Start date: 12/30/17 16:11:00 CDT, Stop date: 12/30/17 16:11:00 CDT Inactive 12/30/2017 [facility] hydromorphone 1 mg, 1 mL, Route: IVP, Drug form: SOLN, Q3H, PRN Pain Score 7-10, Start date: 12/30/17 15:58:00 CDT, Duration: 30 day, Stop date: 01/29/18 15:57:00 CDTNotes: (Same as: Dilaudid) No Longer Active 12/30/2017 [facility] Dilaudid 4 mg, 2 tab, Route: PO, Drug form: TAB, Q4H, PRN Pain Score 7-10, Start date: 12/30/17 15:51:00 CDT, Duration: 30 day, Stop date: 01/29/18 15:50:00 CDTNotes: (Same as: Dilaudid) Inactive 12/30/2017 [facility] Dilaudid 1 mg, Route: IVP, Q3H, Dosing Weight 42.273, kg, PRN Pain Score 7-10, Start date: 12/30/17 15:01:00 CDT, Duration: 30 day, Stop date: 01/29/18 15:00:00 CDT Inactive 12/30/2017 [facility] Dilaudid 0.2 mg, 0.2 mL, Route: IVP, Drug form: INJ, Q4H, Dosing Weight 42.273, kg, PRN Pain Score 4-6, Start date: 12/30/17 13:44:00 CDT, Stop date: 01/29/18 13:43:00 CDTNotes: Same as: Dilaudid Inactive 12/30/2017 [facility] Vancomycin 1,000 mg, Route: IVPB, [id number], Dosing Weight 42.364, kg, Start date: 12/30/17 13:00:00 CDT, Stop date: 01/01/18 18:00:00 CDT, ABX Indication: Intra-abdominal InfectionNotes: TIME CRITICAL MEDICATION (S tea As: Vancocin) Infusion rate 2001 mg: infuse over 2.5 hours For adult patients only: Round to nearest 250 mg per Medical Staff approval MEDICATION WASTE Product Size: 1000 mg Product Wasted: _750__ mg Inactive 12/30/2017 [facility] meropenem 500 mg, Route: IVPB, [id number], Dosing Weight 42.364, kg, CrCL >=50ml/min, Extended infusion, infuse over 3 hours, Start date: 12/30/17 13:00:00 CDT, Duration: 3 day, Stop date: 01/02/18 6:30:00 CDT, ABX Indication: Intra-abdominal InfectionNotes: Same as Merrem MEDICATION WASTE Product Size: 500 mg Product Wasted: ___ mg Inactive 12/30/2017 [facility] Phenergan 25 mg, 1 mL, Route: IVPB, Q6H, Dosing Weight 42.364, kg, PRN Nausea & Vomiting, Start date: 12/30/17 10:56:00 CDT, Duration: 30 day, Stop date: 01/29/18 10:55:00 CDTNotes: Do not give IV push. (Same as: Phenergan) No Longer Active 12/30/2017 [facility] Docusate 100 mg, 1 cap, Route: PO, Drug form: CAP, BID, Dosing Weight 42.364, kg, PRN as needed for constipation, Start date: 12/30/17 10:55:00 CDT, Duration: 30 day, Stop date: 01/29/18 10:54:00 CDTNotes: (Same as: Colace) (Do Not Crush) No Longer Active 12/30/2017 [facility] Acetaminophen 325 MG / Hydrocodone Bitartrate 5 MG Oral Tablet 1 tab, Route: PO, Drug Form: TAB, Dosing Weight 42.364, kg, Q6H, PRN Pain Score 4-6, Start date: 12/30/17 10:55:00 CDT, Duration: 30 day, Stop date: 01/29/18 10:54:00 CDTNotes: (Same as: [place] 325/5) Do not exceed 4gm/day of acetaminophen. No Longer Active 12/30/2017 [facility] Acetaminophen 650 mg, 2 tab, Route: PO, Drug form: TAB, Q6H, Dosing Weight 42.364, kg, PRN Pain 1-3/Temp > 100.4 F, Start date: 12/30/17 10:55:00 CDT, Duration: 30 day, Stop date: 01/29/18 10:54:00 CDTNotes: Do not exceed 4 gm/day. (Same as: Tylenol) No Longer Active 12/30/2017 [facility] parenteral nutrition solution 1,550 mL 1,550 mL, Rate: 62.5 ml/hr, Infuse over: 24.8 hr, Route: IV, Dosing Weight 42.318 kg, Total Volume: 1,550, Start date: 12/09/17 22:00:00 CDT, Duration: 1 day, Stop date: 12/10/17 21:59:00 CDT, 1.35, m2 Inactive 12/10/2017 [facility] fat emulsion, intravenous 250 mL IV, 31.25 ml/hr, Start date: 12/09/17 22:00:00 CDT, Duration: 8, 250 ml, 42.318Notes: (Same as: Intralipid, Liposyn) Inactive 12/10/2017 [facility] Eliquis 2.5 mg, 1 tab, Route: PO, Drug form: TAB, Q12H, Dosing Weight 42.318, kg, Start date: 12/09/17 21:00:00 CDT, Duration: 30 day, Stop date: 01/08/18 9:00:00 CDTNotes: Same as: Eliquis Inactive 12/10/2017 [facility] micafungin 50 mg intravenous injection 100 mg, IV, Q24H, # 30 vial, 0 Refill(s), given to patient No Longer Active 12/09/2017 [facility] hydromorphone 2 mg oral tablet 2 mg=1 tab, PO, Q4H, PRN Pain Score 7-10, 0 Refill(s) No Longer Active 12/09/2017 [facility] cefepime 1 g injection 1 gm, IV, Q8H, # 100 vial, 0 Refill(s), given to patient No Longer Active 12/09/2017 [facility] apixaban 2.5 mg oral tablet 2.5 mg=1 tab, PO, Q12H, 0 Refill(s) No Longer Active 12/09/2017 [facility] tizanidine 4 mg oral tablet 4 mg=1 tab, PO, Q8H, PRN as needed for muscle spasm, 0 Refill(s) No Longer Active 12/09/2017 [facility] metroNIDAZOLE intravenous solution 500 fi=141 mL, IVPB, [id number], 0 Refill(s) No Longer Active 12/09/2017 [facility] linezolid 600 bf=620 mL, IVPB, [id number], 0 Refill(s) Active 12/09/2017 [facility] cefepime 1 gm, Route: IVPB, [id number], Dosing Weight 42.318, kg, (CrCl >/=50 ml/min), Start date: 12/09/17 0:00:00 CDT, Duration: 30 day, Stop date: 01/07/18 16:00:00 CDT, ABX Indication: Intra-abdominal InfectionNotes: (Same As: Maxipime) MEDICATION WASTE Product Size: 1000 mg Product Wasted: ___ mg Inactive 12/09/2017 [facility] parenteral nutrition solution 1,550 mL 1,550 mL, Rate: 62.5 ml/hr, Infuse over: 24.8 hr, Route: IV, Dosing Weight 42.318 kg, Total Volume: 1,550, Start date: 12/08/17 22:00:00 CDT, Duration: 1 day, Stop date: 12/09/17 21:59:00 CDT, 1.35, m2 No Longer Active 12/09/2017 [facility] Flagyl 500 mg, 100 mL, Route: IVPB, Drug form: INJ, [id number], Dosing Weight 42.318, kg, Start date: 12/08/17 18:00:00 CDT, Duration: 30 day, Stop date: 01/07/18 10:00:00 CDT, ABX Indication: Intra-abdominal Infe ctionNotes: (Same as: Flagyl) Avoid alcohol. No Longer Active 12/08/2017 [facility] micafungin 100 mg, Route: IV, [id number], Dosing Weight 42.318, kg, Start date: 12/08/17 17:00:00 CDT, Duration: 30 day, Stop date: 01/06/18 21:00:00 CDT, ABX Indication: Intra-abdominal InfectionNotes: Same as Mycamine Protect from light MEDICATION WASTE Product Size: 100 mg Product Wasted: ___ mg No Longer Active 12/08/2017 [facility] linezolid 600 mg, 300 mL, Route: IVPB, Drug form: SOLN, [id number], Dosing Weight 42.318, kg, Start date: 12/08/17 17:00:00 CDT, Duration: 30 day, Stop date: 01/07/18 8:00:00 CDT, ABX Indication: Intra-abdominal InfectionNotes: (Same as: Zyvox) No Longer Active 12/08/2017 [facility] Omnipaque 300 100 ml, Route: IV, Drug Form: SOLN, Dosing Weight 42.318, kg, ONCE, Start date: 12/08/17 12:54:00 CDT, Stop date: 12/08/17 12:54:00 CDTNotes: (Same as:Omnipaque 300). WASTE: F/P - Black; E - Municipal Trash Bin No Longer Active 12/08/2017 [facility] fat emulsion, intravenous 250 mL IV, 31.25 ml/hr, Start date: 12/07/17 22:00:00 CDT, Duration: 8, 250 ml, 42.318Notes: (Same as: Intralipid, Liposyn) No Longer Active 12/08/2017 [facility] parenteral nutrition solution 1,550 mL 1,550 mL, Rate: 62.5 ml/hr, Infuse over: 24.8 hr, Route: IV, Dosing Weight 42.318 kg, Total Volume: 1,550, Start date: 12/07/17 22:00:00 CDT, Duration: 1 day, Stop date: 12/08/17 21:59:00 CDT, 1.35, m2 No Longer Active 12/08/2017 [facility] parenteral nutrition solution 1,550 mL 1,550 mL, Rate: 62.5 ml/hr, Infuse over: 24.8 hr, Route: IV, Dosing Weight 42.318 kg, Total Volume: 1,550, Start date: 12/06/17 22:00:00 CDT, Duration: 24 hr, Stop date: 12/07/17 21:59:00 CDT, 1.35, m2 No Longer Active 12/07/2017 [facility] NS (Bolus) IV 1,000 mL, 1,000 ml/hr, Infuse Over: 1 hr, Route: IV, 1,000, Drug form: INJ, ONCE, Priority: STAT, Dosing Weight 42.318 kg, Start date: 12/06/17 15:05:00 CDT, Stop date: 12/06/17 15:05:00 CDT Inactive 12/06/2017 [facility] Acetaminophen 325 MG / Hydrocodone Bitartrate 10 MG Oral Tablet [[place] 10/325] 1 tab, Route: PO, Drug Form: TAB, Dosing Weight 42.318, kg, Q6H, PRN Pain Score 4-6, Start date: 12/06/17 11:09:00 CDT, Duration: 30 day, Stop date: 01/05/18 11:08:00 CDTNotes: Do not exceed 4gm/day of acetaminophen. (Same as: [place] 325/10) No Longer Active 12/06/2017 [facility] Dilaudid 2 mg, 1 tab, Route: PO, Drug form: TAB, Q4H, Dosing Weight 42.318, kg, PRN Pain Score 7-10, Start date: 12/06/17 10:58:00 CDT, Duration: 30 day, Stop date: 01/05/18 10:57:00 CDTNotes: (Same as: Dilaudid) No Longer Active 12/06/2017 [facility] parenteral nutrition solution 1,550 mL 1,550 mL, Rate: 62.5 ml/hr, Infuse over: 24.8 hr, Route: IV, Dosing Weight 42.318 kg, Total Volume: 1,550, Start date: 12/05/17 22:00:00 CDT, Duration: 1 day, Stop date: 12/06/17 21:59:00 CDT, 1.35, m2 No Longer Active 12/06/2017 [facility] Sodium Chloride 0.9% (Bolus) IV 500 mL, 500 ml/hr, Infuse Over: 1 hr, Route: IV, 500, Drug form: INJ, ONCE, Priority: STAT, Dosing Weight 42.318 kg, Start date: 12/05/17 16:15:00 CDT, Stop date: 12/05/17 16:15:00 CDT Inactive 12/05/2017 [facility] Dilaudid 0.5 mg, 0.5 mL, Route: IVP, Drug form: SOLN, Q3H, Dosing Weight 42.318, kg, PRN Pain Score 7-10, Start date: 12/05/17 11:45:00 CDT, Duration: 30 day, Stop date: 01/04/18 11:44:00 CDTNotes: (Same as: Dilaudid) No Longer Active 12/05/2017 [facility] fat emulsion, intravenous 250 mL IV, 31.25 ml/hr, Start date: 12/04/17 22:00:00 CDT, Duration: 8, 250 ml, 42.318Notes: (Same as: Intralipid, Liposyn) Infuse through a 1.2 micron filter No Longer Active 12/05/2017 [facility] parenteral nutrition solution 1,550 mL 1,550 mL, Rate: 62.5 ml/hr, Infuse over: 24.8 hr, Route: IV, Dosing Weight 42.318 kg, Total Volume: 1,550, Start date: 12/04/17 22:00:00 CDT, Duration: 24 hr, Stop date: 12/05/17 21:59:00 CDT, 1.35, m2 No Longer Active 12/05/2017 [facility] parenteral nutrition solution 1,550 mL 1,550 mL, Rate: 62.5 ml/hr, Infuse over: 24.8 hr, Route: IV, Dosing Weight 42.318 kg, Total Volume: 1,550, Start date: 12/03/17 22:00:00 CDT, Duration: 1 day, Stop date: 12/04/17 21:59:00 CDT, 1.35, m2 No Longer Active 12/04/2017 [facility] Saline Flush 0.9% 10 mL, Route: IVP, Drug Form: INJ, Dosing Weight 42.318, kg, Q8H, Start date: 12/03/17 16:00:00 CDT, Duration: 30 day, Stop date: 01/02/18 8:00:00 CDTNotes: Same as: BD Posiflush Sterile Inactive 12/03/2017 [facility] Lidocaine Hydrochloride 10 MG/ML Injectable Solution 5 mL, Route: INTRADERM, Drug Form: INJ, Dosing Weight 42.318, kg, ONCALL, Start date: 12/03/17 13:00:00 CDT, Duration: 30 day, Stop date: 01/02/18 12:59:00 CDTNotes: Preservative free. (Same as: Xylocaine MPF) Inactive 12/03/2017 [facility] Omnipaque 300 50 ml, Route: PO, Drug Form: SOLN, Dosing Weight 42.318, kg, ONCE, Start date: 12/03/17 12:40:00 CDT, Stop date: 12/03/17 12:40:00 CDTNotes: (Same as:Omnipaque 300). WASTE: F/P - Black; E - Municipal Trash Bin No Longer Active 12/03/2017 [facility] Saline Flush 0.9% 10 mL, Route: IVP, Drug Form: INJ, Dosing Weight 42.318, kg, PRN, PRN Line Flush, Start date: 12/03/17 12:19:00 CDT, Duration: 30 day, Stop date: 01/02/18 12:18:00 CDTNotes: Same as: BD Posiflush Sterile Inactive 12/03/2017 [facility] parenteral nutrition solution 1,550 mL 1,550 mL, Rate: 62.5 ml/hr, Infuse over: 24.8 hr, Route: IV, Dosing Weight 42.318 kg, Total Volume: 1,550, Start date: 12/02/17 22:00:00 CDT, Duration: 24 hr, Stop date: 12/03/17 21:59:00 CDT, 1.35, m2 No Longer Active 12/03/2017 [facility] fat emulsion, intravenous 250 mL IV, 31.25 ml/hr, Start date: 12/02/17 22:00:00 CDT, Duration: 8, 250 ml, 42.318Notes: (Same as: Intralipid, Liposyn) Infuse through a 1.2 micron filter No Longer Active 12/03/2017 [facility] Phenergan 25 mg, 1 tab, Route: PO, Drug form: TAB, Q6H, Dosing Weight 42.318, kg, PRN as needed for nausea/vomiting, Start date: 12/02/17 16:52:00 CDT, Duration: 30 day, Stop date: 01/01/18 16:51:00 CDTNotes: (Same as: Phenergan) No Longer Active 12/02/2017 [facility] parenteral nutrition solution 1,550 mL 1,550 mL, Rate: 62.5 ml/hr, Infuse over: 24.8 hr, Route: IV, Dosing Weight 42.318 kg, Total Volume: 1,550, Start date: 12/01/17 22:00:00 CDT, Duration: 1 day, Stop date: 12/02/17 21:59:00 CDT, 1.35, m2 No Longer Active 12/02/2017 [facility] parenteral nutrition solution 1,550 mL 1,550 mL, Rate: 62.5 ml/hr, Infuse over: 24.8 hr, Route: IV, Dosing Weight 42.318 kg, Total Volume: 1,550, Start date: 11/30/17 22:00:00 CDT, Duration: 24 hr, Stop date: 12/01/17 21:59:00 CDT, 1.35, m2 No Longer Active 12/01/2017 [facility] fat emulsion, intravenous 250 mL IVPB, 31.25 ml/hr, Start date: 11/30/17 22:00:00 CDT, Duration: 8, 250 ml, 42.318Notes: (Same as: Intralipid, Liposyn) Infuse through a 1.2 micron filter No Longer Active 12/01/2017 [facility] tizanidine 4 mg, 1 tab, Route: PO, Drug form: TAB, Q8H, Dosing Weight 42.318, kg, PRN as needed for muscle spasm, Start date: 11/30/17 8:34:00 CDT, Duration: 30 day, Stop date: 12/30/17 8:33:00 CDTNotes: (Same As: Zanaflex) No Longer Active 11/30/2017 [facility] parenteral nutrition solution 1,550 mL 1,550 mL, Rate: 62.5 ml/hr, Infuse over: 24.8 hr, Route: IV, Dosing Weight 42.318 kg, Total Volume: 1,550, Start date: 11/29/17 22:00:00 CDT, Duration: 1 day, Stop date: 11/30/17 21:59:00 CDT, 1.35, m2 No Longer Active 11/30/2017 [facility] parenteral nutrition solution 1,550 mL 1,550 mL, Rate: 62.5 ml/hr, Infuse over: 24.8 hr, Route: IV, Dosing Weight 42.318 kg, Total Volume: 1,550, Start date: 11/28/17 22:00:00 CDT, Duration: 24 hr, Stop date: 11/29/17 21:59:00 CDT, 1.35, m2 No Longer Active 11/29/2017 [facility] fat emulsion, intravenous 250 mL IV, 31.25 ml/hr, Start date: 11/27/17 22:00:00 CDT, Duration: 8, 250 ml, 42.318 No Longer Active 11/28/2017 [facility] parenteral nutrition solution 1,550 mL 1,550 mL, Rate: 62.5 ml/hr, Infuse over: 24.8 hr, Route: IV, Dosing Weight 42.318 kg, Total Volume: 1,550, Start date: 11/27/17 22:00:00 CDT, Duration: 1 day, Stop date: 11/28/17 21:59:00 CDT, 1.35, m2 No Longer Active 11/28/2017 [facility] meropenem + Sodium Chloride 0.9% IV 100 mL 500 mg, Route: IVPB, [id number], Dosing Weight 40.909, kg, CrCL=30 -49 ml/min, Extended infusion, infuse over 3 hours, Start date: 11/27/17 20:00:00 CDT, Duration: 11 day, Stop date: 12/08/17 16:00:00 CDT, ABX Indication: ED - Suspected SepsisNotes: Same as Merrem MEDICATION WASTE Product Size: 500 mg Product Wasted: __0_ mg No Longer Active 11/28/2017 [facility] Mycamine 100 mg, Route: IVPB, [id number], Dosing Weight 42.318, kg, Start date: 11/27/17 19:00:00 CDT, Duration: 7 day, Stop date: 12/04/17 3:00:00 CDT, ABX Indication: Fever of Unknown Source 0-60 days of ageNotes: Same as Mycamine Protect from light MEDICATION WASTE Product Size: 100 mg Product Wasted: ___ mg No Longer Active 11/28/2017 [facility] Sodium Chloride 0.9% (titrate) 250 mL 250 mL, Rate: To prime line and flush remaining blood products., Dosing Weight 42.318, kg, Route: IV, Total Volume: 250, Priority: Routine, Start Date: 11/27/17 18:47:00 CDT, Duration: 30 day, Stop date: 12/27/17 18:46:00 CDT, Replace Every: 24 hr No Longer Active 11/27/2017 [facility] Acetaminophen 325 MG / Hydrocodone Bitartrate 10 MG Oral Tablet [[place] 10/325] 1 tab, Route: PO, Drug Form: TAB, Dosing Weight 42.318, kg, Q4H, PRN Pain Score 6-10, Start date: 11/27/17 10:24:00 CDT, Duration: 30 day, Stop date: 12/27/17 10:23:00 CDTNotes: Do not exceed 4gm/day of acetaminophen. (Same as: [place] 325/10) No Longer Active 11/27/2017 [facility] parenteral nutrition solution 1,550 mL 1,550 mL, Rate: 62.5 ml/hr, Infuse over: 24.8 hr, Route: IV, Dosing Weight 42.318 kg, Total Volume: 1,550, Start date: 11/26/17 22:00:00 CDT, Duration: 24 hr, Stop date: 11/27/17 21:59:00 CDT, 1.35, m2 No Longer Active 11/27/2017 [facility] Daptomycin 250 mg, Route: IVPB, [id number], Dosing Weight 42.318, kg, Start date: 11/26/17 18:00:00 CDT, Duration: 30 day, Stop date: 12/26/17 4:00:00 CDT, ABX Indication: Intra-abdominal InfectionNotes: (Same As: Vijaya) Restricted use to Infectious Disease Physicians. For adult patients only: Round to nearest 50 mg per Medical Staff approval MEDICATION WASTE Product Size: 500 mg Product Wasted: _250_ mg No Longer Active 11/26/2017 [facility] potassium chloride 20 mEq oral tablet, extended release 40 mEq, 2 tab, Route: PO, Drug form: ERTAB, ONCE, Dosing Weight 42.318, kg, Start date: 11/26/17 17:00:00 CDT, Stop date: 11/26/17 17:00:00 CDTNotes: (Same as: K-Dur 20) "Do Not Crush" With food and full glass of water Inactive 11/26/2017 [facility] Motrin 600 mg, 1 tab, Route: PO, Drug form: TAB, Q6H, Dosing Weight 42.318, kg, PRN For Temp > 100.4 F, Start date: 11/26/17 16:51:00 CDT, Duration: 30 day, Stop date: 12/26/17 16:50:00 CDTNotes: (Same as: Motrin) "Do Not Crush" Take with food. No Longer Active 11/26/2017 [facility] magnesium sulfate 2 gm, 50 mL, Route: IVPB, Drug form: INJ, ONCE, Start date: 11/26/17 15:00:00 CDT, Stop date: 11/26/17 15:00:00 CDTNotes: WASTE: F/P - Sink; E - Municipal Trash Bin Inactive 11/26/2017 [facility] Phenergan 12.5 mg, 0.5 mL, Route: IVPB, Q6H, Dosing Weight 42.318, kg, PRN Nausea, Start date: 11/26/17 14:56:00 CDT, Duration: 30 day, Stop date: 12/26/17 14:55:00 CDTNotes: Do not give IV push. (Same as: energan) No Longer Active 11/26/2017 [facility] potassium chloride + Sodium Chloride 0.9% IV 90 mL 20 mEq, 10 mL, Route: IV Central, Q1H, Start date: 11/26/17 12:00:00 CDT, Duration: 2 doses or times, Stop date: 11/26/17 13:00:00 CDTNotes: MUST be Diluted before use (Same as: KCl) MEDICATION WASTE Product Size: 40 mEq Product Wasted: ___ mEq Inactive 11/26/2017 [facility] Oxycodone Hydrochloride 5 MG Oral Tablet 10 mg, 2 tab, Route: PO, Drug form: TAB, Q4H, Dosing Weight 42.33, kg, PRN Pain Score 7-10, Start date: 11/26/17 9:07:00 CDT, Duration: 2 day, Stop date: 11/28/17 9:06:00 CDT, Pain Score 4-9Notes: (Same as: Roxicodone) No Longer Active 11/26/2017 [facility] Sodium Chloride 0.9% IV 1,000 mL 1,000 mL, Rate: 75 ml/hr, Infuse over: 13.3 hr, Route: IV, Dosing Weight 42.33 kg, Total Volume: 1,000, Start date: 11/25/17 22:00:00 CDT, Stop date: 11/26/17 22:00:00 CDT, 1.35, m2 No Longer Active 11/26/2017 [facility] fat emulsion, intravenous 250 mL IV, 31.25 ml/hr, Start date: 11/25/17 22:00:00 CDT, Duration: 8, 250 ml, 42.33Notes: (Same as: Intralipid, Liposyn) No Longer Active 11/26/2017 [facility] parenteral nutrition solution 1,050 mL 1,050 mL, Rate: 42 ml/hr, Infuse over: 25 hr, Route: IV, Dosing Weight 42.33 kg, Total Volume: 1,050, Start date: 11/25/17 22:00:00 CDT, Duration: 1 day, Stop date: 11/26/17 21:59:00 CDT, 1.35, m2 No Longer Active 11/26/2017 [facility] Oxycodone Hydrochloride 5 MG Oral Tablet 10 mg, 2 tab, Route: PO, Drug form: TAB, Q8H, Dosing Weight 42.33, kg, PRN Pain Score 7-10, Start date: 11/25/17 9:59:00 CDT, Duration: 30 day, Stop date: 12/25/17 9:58:00 CDT, Pain Score 4-9Notes: (Same as: Roxicodone) No Longer Active 11/25/2017 [facility] Acetaminophen 325 MG / Oxycodone Hydrochloride 10 MG Oral Tablet [Percocet 10/325] 1 tab, Route: PO, Drug Form: TAB, Dosing Weight 42.33, kg, Q8H, PRN, Start date: 11/25/17 9:48:00 CDT, Duration: 30 day, Stop date: 12/25/17 9:47:00 CDT, Pain Score 4-9 Inactive 11/25/2017 [facility] Midodrine 5 mg, Route: PO, Drug form: TAB, BID, Dosing Weight 42.33, kg, Start date: 11/25/17 9:00:00 CDT, Duration: 30 day, Stop date: 12/24/17 17:00:00 CDT No Longer Active 11/25/2017 [facility] Protonix 40 mg, 1 tab, Route: PO, Drug form: ECTAB, Before Breakfast, Dosing Weight 42.33, kg, Start date: 11/25/17 7:30:00 CDT, Duration: 30 day, Stop date: 12/24/17 7:30:00 CDTNotes: Tablet should not be chewed or crushed. (Same as: Protonix) No Longer Active 11/25/2017 [facility] Lovenox 40 mg, 0.4 mL, Route: SUB-Q, Drug form: INJ, [id number], Dosing Weight 42.33, kg, Start date: 11/24/17 20:00:00 CDT, Duration: 30 day, Stop date: 12/23/17 20:00:00 CDTNotes: (Same as: Lovenox) No Longer Active 11/25/2017 [facility] NS 1,000 mL 1,000 mL, Rate: 125 ml/hr, Infuse over: 8 hr, Route: IV, Dosing Weight 42.33 kg, Total Volume: 1,000, Start date: 11/24/17 19:56:00 CDT, Stop date: 11/25/17 20:59:00 CDT, 1.35, m2 No Longer Active 11/25/2017 [facility] Acetaminophen 325 MG / Hydrocodone Bitartrate 10 MG Oral Tablet 1 tab, Route: PO, Drug Form: TAB, Dosing Weight 42.33, kg, Q8H, PRN Pain Score 1-5, Start date: 11/24/17 19:50:00 CDT, Duration: 30 day, Stop date: 12/24/17 19:49:00 CDTNotes: Do not exceed 4gm/day of acetaminophen. (Same as: [place] 325/10) No Longer Active 11/25/2017 [facility] Alprazolam 1 MG Oral Tablet 1 mg, 1 tab, Route: PO, Drug form: TAB, TID, Dosing Weight 42.33, kg, PRN Anxiety, Start date: 11/24/17 19:50:00 CDT, Duration: 30 day, Stop date: 12/24/17 19:49:00 CDTNotes: With food or milk (Same as: Xanax) No Longer Active 11/25/2017 [facility] Hyoscyamine 0.125 mg, 1 tab, Route: PO, Drug form: TAB, QID, Dosing Weight 42.33, kg, PRN Spasm, Start date: 11/24/17 19:50:00 CDT, Duration: 30 day, Stop date: 12/24/17 19:49:00 CDTNotes: (Same as: Levsin) Take 30 min before meal No Longer Active 11/25/2017 [facility] Trazodone Hydrochloride 50 MG Oral Tablet 50 mg, 1 tab, Route: PO, Drug form: TAB, Bedtime, Dosing Weight 42.33, kg, PRN Insomnia, Start date: 11/24/17 19:50:00 CDT, Duration: 30 day, Stop date: 12/24/17 19:49:00 CDTNotes: (Same As: Desyrel) No Longer Active 11/25/2017 [facility] celecoxib 100 mg, 1 cap, Route: PO, Drug form: CAP, BID, Dosing Weight 42.33, kg, PRN Pain Score 1-5, Start date: 11/24/17 19:50:00 CDT, Duration: 30 day, Stop date: 12/24/17 19:49:00 CDTNotes: NSAID. Please check indication. Not for seizure. (Same As: CeleBREX ) No Longer Active 11/25/2017 [facility] Daptomycin 150 mg, Route: IVP, Daily, Dosing Weight 40.909, kg, Start date: 11/24/17 18:00:00 CDT, Duration: 14 day, Stop date: 12/07/17 18:00:00 CDT, ABX Indication: BacteremiaNotes: (Same As: Vijaya) Restricted use to Infectious Disease Physicians. For adult patients only: Round to nearest 50 mg per Medical Staff approval MEDICATION WASTE Product Size: 500 mg Product Wasted: ___ mg No Longer Active 11/24/2017 [facility] meropenem 500 mg, Route: IVPB, [id number], Dosing Weight 40.909, kg, CrCL=30 -49 ml/min, Extended infusion, infuse over 3 hours, Start date: 11/24/17 18:00:00 CDT, Stop date: 12/08/17 10:00:00 CDT, ABX Indication: ED - Suspected SepsisNotes: Same as Merrem MEDICATION WASTE Product Size: 500 mg Product Wasted: __0_ mg No Longer Active 11/24/2017 [facility] Promethazine Hydrochloride 25 MG Oral Tablet 25 mg=1 tab, PO, Q8H, PRN Nausea/Vomiting, # 30 tab, 0 Refill(s) Active 11/24/2017 [facility] hyoscyamine 0.125 mg oral tablet 0.125 mg=1 tab, PO, QID, PRN spasm, # 40 tab, 0 Refill(s) Active 11/24/2017 [facility] pantoprazole 40 MG Enteric Coated Tablet [Protonix] 40 mg=1 tab, PO, Daily, # 30 tab, 1 Refill(s) Active 11/24/2017 [facility] midodrine 2.5 mg oral tablet 2.5 mg=1 tab, PO, BID, 0 Refill(s) No Longer Active 11/24/2017 [facility] Trazodone Hydrochloride 50 MG Oral Tablet 50 mg=1 tab, PO, Bedtime, # 30 tab, 1 Refill(s) Active 11/24/2017 [facility] zolpidem 5 mg oral tablet 5 mg=1 tab, PO, Bedtime, PRN Sleep, 0 Refill(s) Active 11/24/2017 [facility] celecoxib 100 mg oral capsule 100 mg=1 cap, PO, BID, PRN Pain Score 1-5, 0 Refill(s) Active 11/24/2017 [facility] Alprazolam 1 MG Oral Tablet 1 mg=1 tab, PO, TID, PRN Anxiety, 0 Refill(s) Active 11/24/2017 [facility] Acetaminophen 325 MG / Hydrocodone Bitartrate 10 MG Oral Tablet 1 tab, PO, Q8H, PRN Pain, # 30 tab, 0 Refill(s) Active 11/24/2017 [facility] NS 1,000 mL 1,000 mL, Rate: 100 ml/hr, Infuse over: 10 hr, Route: IV, Dosing Weight 42.33 kg, Total Volume: 1,000, Start date: 11/24/17 17:50:00 CDT, Duration: 30 day, Stop date: 12/24/17 17:49:00 CDT, 1.35, m2 Inactive 11/24/2017 [facility] Acetaminophen 325 MG / Hydrocodone Bitartrate 5 MG Oral Tablet 1 tab, Route: PO, Drug Form: TAB, Dosing Weight 42.33, kg, Q6H, PRN Pain Score 4-6, Start date: 11/24/17 17:49:00 CDT, Duration: 30 day, Stop date: 12/24/17 17:48:00 CDTNotes: (Same as: [place] 325/5) Do not exceed 4gm/day of acetaminophen. Inactive 11/24/2017 [facility] Acetaminophen 650 mg, 2 tab, Route: PO, Drug form: TAB, Q6H, Dosing Weight 42.33, kg, PRN Pain 1-3/Temp > 100.4 F, Start date: 11/24/17 17:49:00 CDT, Duration: 30 day, Stop date: 12/24/17 17:48:00 CDTNotes: Do not exceed 4 gm/day. (Same as: Tylenol) No Longer Active 11/24/2017 [facility] Ondansetron 4 mg, 2 mL, Route: IVP, Drug form: INJ, Q6H, Dosing Weight 42.33, kg, PRN Nausea & Vomiting, Start date: 11/24/17 17:49:00 CDT, Duration: 30 day, Stop date: 12/24/17 17:48:00 CDTNotes: (Same as: Zofran) MEDICATION WASTE Product Size: 4 mg Product Wasted: ___ mg No Longer Active 11/24/2017 [facility] Docusate 100 mg, 1 cap, Route: PO, Drug form: CAP, BID, Dosing Weight 42.33, kg, PRN as needed for constipation, Start date: 11/24/17 17:49:00 CDT, Duration: 30 day, Stop date: 12/24/17 17:48:00 CDTNotes: (Same as: Colace) (Do Not Crush) No Longer Active 11/24/2017 [facility] Please update height, weight, allergies on profile Please update height, weight, allergies on profile, ATTN:BORIS, Drug form: MISC, Route: MISC, Q30Min, 11/24/17 17:30:00 CDT, Duration: 30 day, Stop date: 12/24/17 17:00:00 CDT Inactive 11/24/2017 [facility] Sodium Chloride 0.9% (Bolus) IV 100 mL, 100 ml/hr, Infuse Over: 1 hr, Route: IV, Continuous, Priority: STAT, Dosing Weight 40.909 kg, Start date: 11/24/17 13:20:00 CDT, Duration: 30 day, Stop date: 12/24/17 13:19:00 CDT Inactive 11/24/2017 [facility] ketorolac 30 mg, Route: IVP, Drug form: INJ, ONCE, Dosing Weight 40.909, kg, Priority: STAT, Start date: 10/11/13 5:21:00, Stop date: 10/11/13 5:21:00 Inactive [place] 10/11/2013 [facility] Bentyl 10 mg oral capsule 10 mg=1 cap, PO, QID, Pain, # 28 cap, 0 Refill(s) Active [place] 10/11/2013 [facility] [place] 10/325 oral tablet 1-2 tab, PO, Q4-6H, Pain, # 30 tab, 0 Refill(s) Active [place] 10/11/2013 [facility] Dilaudid 1 mg, Route: IV, ONCE, Dosing Weight 40.909, kg, Start date: 10/11/13 4:58:00, Stop date: 10/11/13 4:58:00 Inactive [place] 10/11/2013 [facility] Dilaudid 1 mg, Route: IV, ONCE, Dosing Weight 40.909, kg, Start date: 10/11/13 3:39:00, Stop date: 10/11/13 3:39:00 Inactive [place] 10/11/2013 [facility] Dilaudid 1 mg, Route: IV, ONCE, Dosing Weight 40.909, kg, Start date: 10/11/13 1:26:00, Stop date: 10/11/13 1:26:00 Inactive [place] 10/11/2013 [facility] Zofran 4 mg, Route: IVP, Drug form: INJ, ONCE, Dosing Weight 40.909, kg, Priority: STAT, Start date: 10/11/13 1:26:00, Stop date: 10/11/13 1:26:00 Inactive [place] 10/11/2013 [facility] Allergies, Adverse Reactions, Alerts Substance Category Reaction Severity Reaction type Status Date Reported Comments Source morphine Assertion Drug allergy Active [facility] Zofran Assertion Drug allergy Active [facility] Surgical Tape<sup>1</sup> Assertion Allergy to substance Active use paper tape [facility] Immunizations Immunization Date Given Site Status Last Updated Comments Source Results Order Name Results Value Reference Range Date Interpretation Comments Source Abdomen/Pelvis wo IV contrast CT Abdomen/Pelvis wo IV contrast CT Patient Name: DELTA BARRIOS : 1985; Age: 32 years Female MR: [id number] Study: Abdomen/Pelvis wo IV contrast CT 07/05/2018 3:17 PM CDT CLINICAL INDICATION: Abscess, fistula COMPARISON: CT on 05/21/2018 TECHNIQUE: Multidetector CT imaging of the abdomen and pelvis WITHOUT IV contrast. Coronal and sagittal reconstructions were generated and reviewed. CT imaging performed at this location utilizes radiation dose optimization techniques which include one or more of the following: -Automated exposure control -Adjustment of the mA and/or kV according to patient size -Use of iterative reconstruction technique Radiation dose: 364 mGycm FINDINGS: Lower thorax: Atelectatic changes within the dependent lungs. Hepatobiliary: No focal hepatic lesion. Unremarkable gallbladder. Pancreas: No focal mass or ductal dilatation. Spleen: No splenomegaly. Adrenals: No nodules. Kidneys: Contrast is seen within the bilateral renal collecting systems. No hydronephrosis. Pelvic organs: Unremarkable uterus and bladder. Peritoneum/Retroperitoneum: Inflammatory stranding within the right lower quadrant. No free fluid or free air. Lymph nodes: No lymphadenopathy. Vessels: Unremarkable. GI: Status post total colectomy with stable appearance of the ileorectal anastomosis. Unchanged small presacral fluid collection (2.1 x 1.9 cm) which communicates with the ileorectal sutures. No evidence of bowel obstruction. Bones and soft tissues: Diffuse thickening of the right iliacus muscle with note of a fistulous tract to the right lower quadrant skin surface as well as to the small bowel. No organized fluid collection. 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 No drainable abscess. Status post total colectomy with stable appearance of the ileorectal anastomosis. Unchanged small presacral fluid collection which communicates with the ileorectal sutures. Contrast is seen within the bilateral renal collecting systems. Advise correlation for recent IV contrast administration. SL: [id number] 07/05/2018 - - Read by: Marvel Valdes MD Dictated Date/time: 07/07/18 08:14 Electronically Signed by: Marvel Valdes MD 07/07/18 08:34 FINAL REPORT [facility] Chest 1view DX Chest 1view DX CHEST RADIOGRAPH ONE VIEW 05/21/2018 AT 1645 HOURS. CLINICAL HISTORY: Cough. Crohn's disease. COMPARISON STUDIES: Chest one view 04/29/[address] 04/30/2018. FINDINGS: One view of the chest was obtained. The lungs are clear. There are no pleural effusions. The cardiac silhouette is not enlarged. The right-sided chest port terminates at the level of the atriocaval junction. No destructive bone lesions. No ankylosis. IMPRESSION: 1. No acute finding. SL: [id number] 05/21/2018 - - Read by: Chris Crespo MD Dictated Date/time: 05/21/18 16:54 Electronically Signed by: Chris Crespo MD 05/21/18 16:56 FINAL REPORT [facility] Abdomen/Pelvis w IV contrast CT Abdomen/Pelvis w IV contrast CT CT ABDOMEN/PELVIS WITH IV CONTRAST HISTORY: Progressive abdominal pain; history of gastrointestinal fistula; - eval for intraabdominal abscess; TECHNIQUE: Axial imaging of abdomen and pelvis with multiplanar reformations. IV CONTRAST: 100cc Omnipaque. GI CONTRAST: Yes. CT imaging performed at this location utilizes radiation dose optimization techniques which include one or more of the following: -Automated exposure control -Adjustment of the mA and/or kV according to patient size -Use of iterative reconstruction technique CT Radiation Dose DLP 811.14 mGy-cm COMPARISON: CT abdomen/pelvis examinations dated 04/30/2018, 02/04/2018, and 12/31/2017 FINDINGS: LOWER CHEST: The lung bases are clear. LIVER, BILIARY, PANCREAS, SPLEEN, AND ADRENALS: Unchanged very mild chronic peripheral intrahepatic biliary dilation in the posterior segment right hepatic lobe. Unchanged mild hepatomegaly. Liver is otherwise normal. No calcified gallstones or evidence of gallbladder inflammation. No dilation of the common bile duct. Normal spleen. Normal pancreas. Normal adrenal glands. GENITOURINARY: Normal kidneys. No hydronephrosis. Normal urinary bladder. Normal uterus. Rim-enhancing 1.6 x 1.3 x 1.8 cm corpus luteum cyst in the right ovary. Simple benign follicle in the left ovary measures 2.5 cm. STOMACH AND BOWEL AND APPENDIX: Normal stomach and duodenum. Changes of colectomy with enteric-rectal anastomosis again noted. Small chronic elongated presacral complex fluid collection posterior to the anastomosis is unchanged. OTHER SOFT TISSUES, VESSELS, AND BONES: Since the most recent prior CT, inflammatory thickening of the right iliacus muscle has mildly worsened and there is now a complex-shaped rim-enhancing discoid fluid collection along the anterior aspect of the iliacus muscle which contains a few small gas bubbles and communicates with the skin of the right lower quadrant. This collection is complex in shape but measures on the order of 4.2 x 10.2 x 1.4 cm (axial series 2 image 66 and sagittal image 24). There is a fistulous tract extending from this collection to the small bowel (coronal image 50 and axial series 2 images 70 and 71), but no oral contrast is seen within this fluid collection. Oral contrast opacifies the entire small bowel and enters the rectum. No evidence of contrast extravasation. No small bowel obstruction. No other intra-abdominal fluid collection. No ascites or pneumoperitoneum. Vascular structures normal. No acute osseous abnormality or aggressive osseous lesion. IMPRESSION: 1. Inflammatory thickening of the right iliacus muscle with development of rim-enhancing loculated discoid fluid collection along the anterior aspect of the right iliacus muscle which communicates with the skin of the right lower quadrant. 2. There is a fistulous tract extending from this collection to the small bowel, but no oral contrast is seen within this fluid collection. 3. Colectomy with enteric-rectal anastomosis again noted. Stable small chronic elongated presacral complex fluid collection. 4. Unchanged hepatomegaly with small area of mild chronic peripheral intrahepatic biliary dilation in the right hepatic lobe. Appearance suggests possible sequela of prior cholangitis. 5. Rim-enhancing corpus luteum cyst of the right ovary. SL: MEENA 05/21/2018 - - Read by: Josias Perez MD Dictated Date/time: 05/21/18 16:47 Electronically Signed by: Josias Perez MD 05/21/18 17:06 FINAL REPORT [facility] Chest Pulmonary Embolism CTA Chest Pulmonary Embolism CTA Clinical Indication: - r/o pe; Comparison: None TECHNIQUE: Sequential trans-axial images were obtained thru the chest and upper abdomen after administration of iodinated contrast. CTA protocol was performed with 3-D postprocessing reconstruction MIPs and volume rendering. Coronal and sagittal reconstructions were obtained. 100 cc of nonionic contrast material was used for the exam. Dose: LWQ=645.61 mGy-cm CT imaging performed at this location utilizes radiation dose optimization techniques which include one or more of the following: -Automated exposure control -Adjustment of the mA and/or kV according to patient size -Use of iterative reconstruction technique FINDINGS: LUNG PARENCHYMA AND PLEURA: There are no lung nodules. There is no significant interstitial lung disease. There is a small left effusion. Bibasilar airspace disease is identified. There is no pneumothorax. AIRWAY: The central airway is normal. . MEDIASTINUM: No significant mediastinal lymphadenopathy. HEART: There is no evidence of RV strain. The cardiac chambers are otherwise unremarkable. There is no pericardial effusion. VASCULAR STRUCTURES: There are no segmental pulmonary emboli noted. The main, right and left pulmonary arteries are normal. The great vessels are unremarkable. The thoracic aorta is is free of aneurysm or dissection.. The superior vena cava is unremarkable. OSSEOUS STRUCTURES: There are no definite significant osseous abnormalities seen. VISUALIZED UPPER ABDOMEN: The visualized upper abdomen is within normal limits. IMPRESSION: 1. No evidence of pulmonary emboli. 2. Small left pleural effusion as well as bibasilar atelectasis. SL: [id number] 04/30/2018 - - Read by: Shadi Russ MD Dictated Date/time: 04/30/18 21:05 Electronically Signed by: Shadi Russ MD 04/30/18 21:06 FINAL REPORT [facility] ED Abdomen/Pelvis IV contrast only CT ED Abdomen/Pelvis IV contrast only CT CT ABDOMEN AND PELVIS WITH CONTRAST INDICATION: Lower abdominal pain, CT dose DLP 725.46 COMPARISON: CT abdomen/pelvis 02/04/2018 DISCUSSION: ABDOMEN: There is no consolidation at the visible lung bases. The liver is enlarged, measuring approximately 19.1 cm in sagittal length. The spleen, pancreas, gallbladder, adrenal glands, and kidneys are grossly normal in morphology. The total colectomy again noted, with ileorectal anastomosis. There is no evidence of bowel obstruction. There is a stable perirectal/presacral fluid collection, measuring approximately 4.4 x 2.0 x 2.0 cm. There is stranding of the intra- abdominal fat of the right lateral lower abdomen and pelvis, likely secondary to postoperative change or sequela of the previously seen abscess and phlegmon. Currently, there is no appreciable abscess of the right iliacus muscle, as previously seen. No free fluid is seen. The abdominal aorta is normal in caliber. Grossly, no suspicious abdominal lymphadenopathy is visible. PELVIS: There is a 3.5 cm left adnexal cyst. The uterus, right adnexa, and bladder are unremarkable. No pelvic lymphadenopathy is identified. BONES: No acute bony abnormalities are seen. IMPRESSION: 1. Postoperative changes of the bowel loops, as described. There is a stable nonspecific 4.4 cm perirectal/presacral fluid collection. Differential considerations include seroma, lymphocele, or abscess. No air is seen in the collection. There is right lateral intra-abdominal and intrapelvic fat stranding, likely secondary to postoperative change or previous inflammation. There is no appreciable absc ess of the right iliacus muscle, as previously seen. 2. Hepatomegaly. 3. A 3.5 cm left adnexal cyst. SL:16 04/29/2018 - - Read by: Donovan Rodriguez MD Dictated Date/time: 04/30/18 02:11 Electronically Signed by: Donovan Rodriguez MD 04/30/18 02:25 FINAL REPORT [facility] Chest 1view DX Chest 1view DX Clinical Indication: - dyspnea Comparison: None FINDINGS: Single frontal radiograph of the chest is performed. Right-sided Port-A-Cath tip terminates in the superior vena cava. Heart size is within normal limits. Mediastinal contours are unremarkable. Lungs are clear without infiltrate or mass. No pleural effusion or pneumothorax. No acute osseous abnormality. IMPRESSION: 1. No radiographic evidence for acute process in the chest. SL: KAREN 04/29/2018 - - Read by: Tutu Cartagena MD Dictated Date/time: 04/29/18 23:49 Electronically Signed by: Tutu Cartagena MD 04/29/18 23:49 FINAL REPORT [facility] Brain Stroke wo contrast CT Brain Stroke wo contrast CT CT head without contrast Clinical Indication: - Seizure. Comparison: None. TECHNIQUE: CT images were obtained from the foramen magnum to the vertex without the use of intravenous contrast on a multidetector CT. CT imaging was performed with exposure control parameters to reduce radiation dose. Coronal and sagittal reconstructions were obtained. CT radiation dose DLP: 1433.58 mGy-cm FINDINGS: Motion artifact is present. No intra or extra-axial fluid or blood collection is seen. No mass or midline shift. Ventricles and sulci are of normal size and configuration. Calvarium is intact. Visualized paranasal sinuses and mastoid air cells are clear. IMPRESSION: No acute intracranial abnormality. Findings were communicated to the ER physician, Dr. Verma, at 11:45 PM on 04/26/2018. EZIO: SGOLIVIA 04/29/2018 - - Read by: Cassandra Winslow MD Dictated Date/time: 04/29/18 23:31 Electronically Signed by: Cassandra Winslow MD 04/29/18 23:52 FINAL REPORT [facility] CHEM PANEL Phosphorus 3.5 mg/dL 2.5 - 4.5 02/05/2018 [facility] CHEM PANEL Magnesium Lvl 1.8 mg/dL 1.8 - 2.4 02/05/2018 [facility] CHEM PANEL eGFR 119 mL/min/1.73m2 02/05/2018 Result Comment: The eGFR is calculated using the [...] from the National Kidney Disease Education Program (NKDEP) which additionally recommends that when the eGFR is used in patients with extremes of body mass index for purposes of drug dosing, the eGFR should be multiplied by the estimated BMI. [facility] CHEM PANEL CO2 27 meq/L 24 - 32 02/05/2018 [facility] CHEM PANEL Calcium Lvl 8.2 mg/dL 8.5 - 10.5 02/05/2018 [facility] CHEM PANEL Chloride Lvl 105 meq/L 95 - 109 02/05/2018 [facility] CHEM PANEL Potassium Lvl 3.8 meq/L 3.5 - 5.1 02/05/2018 [facility] CHEM PANEL Sodium Lvl 137 meq/L 135 - 145 02/05/2018 [facility] CHEM PANEL Creatinine Lvl 0.64 mg/dL 0.50 - 1.40 02/05/2018 [facility] CHEM PANEL BUN 12 mg/dL 7 - 22 02/05/2018 [facility] CHEM PANEL Glucose Lvl 128 mg/dL 70 - 99 02/05/2018 [facility] CHEM PANEL AGAP 8.8 meq/L 10.0 - 20.0 02/05/2018 [facility] HEMATOLOGY Monocytes 9.9 % 2.0 - 12.0 02/05/2018 [facility] HEMATOLOGY Eosinophils 3.7 % 0.0 - 4.0 02/05/2018 [facility] HEMATOLOGY Basophils 0.6 % 0.0 - 1.0 02/05/2018 [facility] HEMATOLOGY Segs 70.1 % 45.0 - 75.0 02/05/2018 [facility] Lymphocytes 15.7 % 20.0 - 40.0 02/05/2018 [facility] Segs-Bands # 8.7 K/CMM 1.5 - 8.1 02/05/2018 [facility] Lymphocytes # 1.9 K/CMM 1.0 - 5.5 02/05/2018 [facility] Monocytes # 1.2 K/CMM 0.0 - 0.8 02/05/2018 [facility] Basophils # 0.1 K/CMM 0.0 - 0.2 02/05/2018 [facility] HEMATOLOGY Eosinophils # 0.5 K/CMM 0.0 - 0.5 02/05/2018 [facility] HEMATOLOGY WBC 12.3 K/CMM 3.7 - 10.4 02/05/2018 [facility] Hgb 8.4 g/dL 12.0 - 16.0 02/05/2018 [facility] Hct 24.1 % 36.0 - 48.0 02/05/2018 [facility] RBC 2.91 M/CMM 4.20 - 5.40 02/05/2018 [facility] Platelet 251 K/CMM 133 - 450 02/05/2018 [facility] MPV 8.1 fL 7.4 - 10.4 02/05/2018 [facility] MCV 82.9 fL 80.0 - 98.0 02/05/2018 [facility] MCH 28.8 pg 27.0 - 31.0 02/05/2018 [facility] MCHC 34.7 g/dL 32.0 - 36.0 02/05/2018 [facility] RDW 18.0 % 11.5 - 14.5 02/05/2018 [facility] PTT 54.1 s 22.9 - 35.8 02/05/2018 [facility] Hgb 10.1 g/dL 12.0 - 16.0 02/05/2018 [facility] MCV 82.4 fL 80.0 - 98.0 02/05/2018 [facility] Hct 30.6 % 36.0 - 48.0 02/05/2018 [facility] RDW 18.4 % 11.5 - 14.5 02/05/2018 [facility] RBC 3.71 M/CMM 4.20 - 5.40 02/05/2018 [facility] WBC 16.5 K/CMM 3.7 - 10.4 02/05/2018 [facility] MPV 8.0 fL 7.4 - 10.4 02/05/2018 [facility] Platelet 296 K/CMM 133 - 450 02/05/2018 [facility] MCHC 33.1 g/dL 32.0 - 36.0 02/05/2018 [facility] MCH 27.3 pg 27.0 - 31.0 02/05/2018 [facility] PT 14.7 s 12.0 - 14.7 02/05/2018 [facility] INR 1.15 0.85 - 1.17 02/05/2018 [facility] PTT 38.4 s 22.9 - 35.8 02/05/2018 [facility] Eosinophils # 0.2 K/CMM 0.0 - 0.5 02/05/2018 [facility] Monocytes 9.6 % 2.0 - 12.0 02/05/2018 [facility] Eosinophils 1.0 % 0.0 - 4.0 02/05/2018 [facility] HEMATOLOGY Segs 80.5 % 45.0 - 75.0 02/05/2018 [facility] Lymphocytes 8.6 % 20.0 - 40.0 02/05/2018 [facility] Lymphocytes # 1.4 K/CMM 1.0 - 5.5 02/05/2018 [facility] Monocytes # 1.6 K/CMM 0.0 - 0.8 02/05/2018 [facility] Segs-Bands # 13.3 K/CMM 1.5 - 8.1 02/05/2018 [facility] Basophils 0.3 % 0.0 - 1.0 02/05/2018 [facility] Basophils # 0.1 K/CMM 0.0 - 0.2 02/05/2018 [facility] URINE CHEM U Preg Negative (02/04/18 10:51 AM) Negative 02/04/2018 [facility] Abdomen/Pelvis w/wo IV contrast CT Abdomen/Pelvis w/wo IV contrast CT PROCEDURE: CT abdomen pelvis with and without contrast. Reconstruction images. INDICATION: - crohns. TECHNIQUE: GI CONTRAST: 900 cc of standard 5% Omnipaque-300 contrast mixture. Axial pre-contrast images were obtained from the lower chest to the symphysis pubis. IV CONTRAST: 100 cc of Omnipaque-300 Axial post-contrast images were obtained from the lower chest to the symphysis pubis. Coronal and sagittal reconstruction images were performed. Total CT radiation dose: PMC=083 mGy-cm COMPARISON: CT December 31, 2017. FINDINGS: LOWER CHEST: New right lower lobe subpleural density measures 1.4 cm on series 4, image 16. Right lower lobe segmental pulmonary artery contrast filling defect is seen on series 4, images 1 through 3. The heart is normal in size. SOLID ORGANS: The liver is enlarged measuring 19 cm cranial caudal dimension. Mild prominence of the intrahepatic bile ducts is noted in segment 6 of the right hepatic lobe. No focal hepatic lesion is seen. No calcified gallstone is noted. The spleen is borderline enlarged at 12.7 cm longitudinal dimension. The pancreas and adrenal glands are normal in appearance. Both kidneys demonstrate normal corticomedullary phase of enhancement. On the noncontrast images series 3, image 42 there is an 8mm left kidney midpole cortical hyperdense focus measuring 54 Hounsfield units. Evaluation for postcontrast enhancement is difficult due to the small size. No urinary calculus or hydronephrosis is seen. BOWEL: A total colectomy is noted with anastomosis from the distal small bowel to the rectum. The small bowel is normal in caliber without wall thickening. PERITONEUM: No free intraperitoneal fluid or air. No ventral wall defects. RETROPERITONEUM: Normal caliber of the abdominal aorta is noted. No lymphadenopathy is seen. PELVIS: Previous phlegmon at this area at the right iliacus muscle now demonstrates peripheral enhancing rim, concerning for abscess. It measures 6.8 x 1.8 cm on series 4, image 83. Communication with a more anterior collection adjacent to the iliopsoas is noted with probable cutaneous fistulization on image 94. The visualized urinary bladder wall is normal thickness. Prominent right ovarian cysts are again seen, measuring up to 3.2 cm. The uterus is grossly unremarkable in CT appearance. MUSCULOSKELETAL: No acute osseous abnormality is seen. No destructive lytic or blastic osseous lesion is noted. IMPRESSION: 1. Right lower lobe segmental pulmonary embolus partly seen. 1.4 cm right lower lobe subpleural density may represents pulmonary infarct versus pneumonia. This finding was communicated to the patient's nurse Shelley on February 04, 2018 at 1647 hours. 2. Previous phlegmon at the right iliacus muscle now demonstrates peripheral enhancing rim, concerning for abscess. It measures 6.8 x 1.8 cm. This communicates with more anterior collection with cutaneous fistulization. 3. Mild hepatomegaly. Borderline splenomegaly. 4. Left kidney mid pole 8 mm hyperdense focus. Postcontrast enhancement is difficult to assess due to the small size. Nonemergent renal ultrasound is advised. SL: [id number] 02/04/2018 - - Read by: Branden Stein MD Dictated Date/time: 02/04/18 16:28 Electronically Signed by: Branden Stein MD 02/04/18 16:53 FINAL REPORT [facility] CHEM PANEL Magnesium Lvl 1.7 mg/dL 1.8 - 2.4 02/03/2018 [facility] CHEM PANEL A/G Ratio 0.6 0.7 - 1.6 02/03/2018 [facility] CHEM PANEL Globulin 4.6 g/dL 2.7 - 4.2 02/03/2018 [facility] CHEM PANEL B/C Ratio 25 6 - 25 02/03/2018 [facility] CHEM PANEL AGAP 9.1 meq/L 10.0 - 20.0 02/03/2018 [facility] CHEM PANEL Creatinine Lvl 0.87 mg/dL 0.50 - 1.40 02/03/2018 [facility] CHEM PANEL Sodium Lvl 137 meq/L 135 - 145 02/03/2018 [facility] CHEM PANEL Calcium Lvl 9.2 mg/dL 8.5 - 10.5 02/03/2018 [facility] CHEM PANEL CO2 30 meq/L 24 - 32 02/03/2018 [facility] CHEM PANEL Chloride Lvl 102 meq/L 95 - 109 02/03/2018 [facility] CHEM PANEL Potassium Lvl 4.1 meq/L 3.5 - 5.1 02/03/2018 [facility] CHEM PANEL Total Protein 7.4 g/dL 6.4 - 8.4 02/03/2018 [facility] CHEM PANEL Alk Phos 328 unit/L 39 - 136 02/03/2018 [facility] CHEM PANEL AST 88 unit/L 0 - 37 02/03/2018 [facility] CHEM PANEL ALT 98 unit/L 0 - 65 02/03/2018 [facility] CHEM PANEL Albumin Lvl 2.8 g/dL 3.5 - 5.0 02/03/2018 [facility] CHEM PANEL Bili Total 0.6 mg/dL 0.2 - 1.3 02/03/2018 [facility] CHEM PANEL eGFR 89 mL/min/1.73m2 02/03/2018 Result Comment: The eGFR is calculated using the [...] from the National Kidney Disease Education Program (NKDEP) which additionally recommends that when the eGFR is used in patients with extremes of body mass index for purposes of drug dosing, the eGFR should be multiplied by the estimated BMI. [facility] CHEM PANEL Glucose Lvl 83 mg/dL 70 - 99 02/03/2018 [facility] CHEM PANEL BUN 22 mg/dL 7 - 22 02/03/2018 [facility] MCHC 33.0 g/dL 32.0 - 36.0 02/03/2018 [facility] MCH 27.2 pg 27.0 - 31.0 02/03/2018 [facility] Platelet 280 K/CMM 133 - 450 02/03/2018 [facility] RDW 18.7 % 11.5 - 14.5 02/03/2018 [facility] MPV 8.5 fL 7.4 - 10.4 02/03/2018 [facility] MCV 82.6 fL 80.0 - 98.0 02/03/2018 [facility] Hct 29.8 % 36.0 - 48.0 02/03/2018 [facility] RBC 3.61 M/CMM 4.20 - 5.40 02/03/2018 [facility] Hgb 9.8 g/dL 12.0 - 16.0 02/03/2018 [facility] WBC 12.6 K/CMM 3.7 - 10.4 02/03/2018 [facility] Monocytes # 1.4 K/CMM 0.0 - 0.8 02/03/2018 [facility] Lymphocytes # 2.1 K/CMM 1.0 - 5.5 02/03/2018 [facility] Eosinophils # 0.3 K/CMM 0.0 - 0.5 02/03/2018 [facility] Basophils 0.2 % 0.0 - 1.0 02/03/2018 [facility] Segs-Bands # 8.8 K/CMM 1.5 - 8.1 02/03/2018 [facility] Eosinophils 2.3 % 0.0 - 4.0 02/03/2018 [facility] Monocytes 10.8 % 2.0 - 12.0 02/03/2018 [facility] Lymphocytes 16.7 % 20.0 - 40.0 02/03/2018 [facility] Segs 70.0 % 45.0 - 75.0 02/03/2018 [facility] CHEM PANEL Phosphorus 4.4 mg/dL 2.5 - 4.5 01/04/2018 [facility] CHEM PANEL Magnesium Lvl 1.9 mg/dL 1.8 - 2.4 01/04/2018 [facility] ELECTROLYTES CO2 27 meq/L 24 - 32 01/04/2018 [facility] ELECTROLYTES Sodium Lvl 139 meq/L 135 - 145 01/04/2018 [facility] ELECTROLYTES AGAP 16.6 meq/L 10.0 - 20.0 01/04/2018 [facility] ELECTROLYTES Creatinine Lvl 0.58 mg/dL 0.50 - 1.40 01/04/2018 [facility] ELECTROLYTES BUN 14 mg/dL 7 - 22 01/04/2018 [facility] ELECTROLYTES Glucose Lvl 113 mg/dL 70 - 99 01/04/2018 [facility] ELECTROLYTES Potassium Lvl 4.6 meq/L 3.5 - 5.1 01/04/2018 [facility] ELECTROLYTES Chloride Lvl 100 meq/L 95 - 109 01/04/2018 [facility] ELECTROLYTES Calcium Lvl 8.9 mg/dL 8.5 - 10.5 01/04/2018 [facility] ELECTROLYTES eGFR 123 mL/min/1.73m2 01/04/2018 Result Comment: The eGFR is calculated using the [...] from the National Kidney Disease Education Program (NKDEP) which additionally recommends that when the eGFR is used in patients with extremes of body mass index for purposes of drug dosing, the eGFR should be multiplied by the estimated BMI. [facility] HEMATOLOGY Platelet 281 K/CMM 133 - 450 01/04/2018 [facility] HEMATOLOGY RDW 18.5 % 11.5 - 14.5 01/04/2018 [facility] MPV 7.0 fL 7.4 - 10.4 01/04/2018 [facility] MCHC 33.0 g/dL 32.0 - 36.0 01/04/2018 [facility] WBC 14.8 K/CMM 3.7 - 10.4 01/04/2018 [facility] HEMATOLOGY Hgb 11.4 g/dL 12.0 - 16.0 01/04/2018 [facility] RBC 4.20 M/CMM 4.20 - 5.40 01/04/2018 [facility] Hct 34.5 % 36.0 - 48.0 01/04/2018 [facility] MCV 82.2 fL 80.0 - 98.0 01/04/2018 [facility] MCH 27.1 pg 27.0 - 31.0 01/04/2018 [facility] CHEM PANEL Phosphorus 3.9 mg/dL 2.5 - 4.5 01/03/2018 [facility] CHEM PANEL Magnesium Lvl 1.9 mg/dL 1.8 - 2.4 01/03/2018 [facility] CHEM PANEL eGFR 134 mL/min/1.73m2 01/03/2018 Result Comment: The eGFR is calculated using the [...] from the National Kidney Disease Education Program (NKDEP) which additionally recommends that when the eGFR is used in patients with extremes of body mass index for purposes of drug dosing, the eGFR should be multiplied by the estimated BMI. [facility] CHEM PANEL AGAP 10.9 meq/L 10.0 - 20.0 01/03/2018 [facility] CHEM PANEL Calcium Lvl 8.5 mg/dL 8.5 - 10.5 01/03/2018 [facility] CHEM PANEL CO2 25 meq/L 24 - 32 01/03/2018 [facility] CHEM PANEL Creatinine Lvl 0.45 mg/dL 0.50 - 1.40 01/03/2018 [facility] CHEM PANEL BUN 11 mg/dL 7 - 22 01/03/2018 [facility] CHEM PANEL Glucose Lvl 119 mg/dL 70 - 99 01/03/2018 [facility] CHEM PANEL Sodium Lvl 137 meq/L 135 - 145 01/03/2018 [facility] CHEM PANEL Potassium Lvl 3.9 meq/L 3.5 - 5.1 01/03/2018 [facility] CHEM PANEL Chloride Lvl 105 meq/L 95 - 109 01/03/2018 [facility] WBC 12.4 K/CMM 3.7 - 10.4 01/03/2018 [facility] RBC 3.75 M/CMM 4.20 - 5.40 01/03/2018 [facility] Hgb 10.3 g/dL 12.0 - 16.0 01/03/2018 [facility] MCV 82.9 fL 80.0 - 98.0 01/03/2018 [facility] Hct 31.1 % 36.0 - 48.0 01/03/2018 [facility] MCH 27.4 pg 27.0 - 31.0 01/03/2018 [facility] RDW 18.6 % 11.5 - 14.5 01/03/2018 [facility] Platelet 245 K/CMM 133 - 450 01/03/2018 [facility] MCHC 33.0 g/dL 32.0 - 36.0 01/03/2018 [facility] MPV 7.5 fL 7.4 - 10.4 01/03/2018 [facility] Ext Lower Venous Doppler Bilat US Ext Lower Venous Doppler Bilat US Patient Name: DELTA BARRIOS : 1985; Age: 32 years y/o Female MR: [id number] * BILATERAL LOWER EXTREMITY VENOUS DOPPLER HISTORY: Bilateral lower extremity pain. Comparison: None TECHNIQUE: Sonographic evaluation of the bilateral lower extremity veins was performed from the popliteal fossa to the inguinal ligament using high resolution grayscale B- mode imaging, along with pulse (spectral) and color Doppler imaging. FINDINGS: * Right lower extremity: The right common femoral vein, superficial femoral vein, popliteal vein and visualized posterior tibial/calf veins are patent and compressible with good flow. There is good spontaneous phasic venous flow with good augmentation with calf compression. This constitutes a normal examination. * Left lower extremity: The left common femoral vein, superficial femoral vein, popliteal vein and visualized posterior tibial/calf veins are patent and compressible with good flow. There is good spontaneous phasic venous flow with good augmentation with calf compression. This constitutes a normal examination. IMPRESSION: Negative venous Doppler of the lower extremities. Specifically, there is no evidence of deep venous thrombosis or venous obstruction. SL: RACH 01/02/2018 - - Read by: Qasim Irvin MD Dictated Date/time: 01/02/18 19:41 Electronically Signed by: Qasim Irvin MD 01/02/18 19:43 FINAL REPORT [facility] CHEM PANEL Phosphorus 3.4 mg/dL 2.5 - 4.5 01/02/2018 [facility] CHEM PANEL Magnesium Lvl 1.8 mg/dL 1.8 - 2.4 01/02/2018 [facility] CHEM PANEL eGFR 124 mL/min/1.73m2 01/02/2018 Result Comment: The eGFR is calculated using the [...] from the National Kidney Disease Education Program (NKDEP) which additionally recommends that when the eGFR is used in patients with extremes of body mass index for purposes of drug dosing, the eGFR should be multiplied by the estimated BMI. [facility] CHEM PANEL Calcium Lvl 8.3 mg/dL 8.5 - 10.5 01/02/2018 [facility] CHEM PANEL AGAP 13.0 meq/L 10.0 - 20.0 01/02/2018 [facility] CHEM PANEL Chloride Lvl 102 meq/L 95 - 109 01/02/2018 [facility] CHEM PANEL CO2 28 meq/L 24 - 32 01/02/2018 [facility] CHEM PANEL Sodium Lvl 139 meq/L 135 - 145 01/02/2018 [facility] CHEM PANEL Potassium Lvl 4.0 meq/L 3.5 - 5.1 01/02/2018 [facility] CHEM PANEL Creatinine Lvl 0.56 mg/dL 0.50 - 1.40 01/02/2018 [facility] CHEM PANEL Glucose Lvl 100 mg/dL 70 - 99 01/02/2018 [facility] CHEM PANEL BUN 11 mg/dL 7 - 22 01/02/2018 [facility] HEMATOLOGY WBC 14.2 K/CMM 3.7 - 10.4 01/02/2018 [facility] HEMATOLOGY RBC 3.97 M/CMM 4.20 - 5.40 01/02/2018 [facility] MPV 7.3 fL 7.4 - 10.4 01/02/2018 [facility] MCHC 33.1 g/dL 32.0 - 36.0 01/02/2018 [facility] RDW 18.4 % 11.5 - 14.5 01/02/2018 [facility] Platelet 217 K/CMM 133 - 450 01/02/2018 [facility] MCH 27.2 pg 27.0 - 31.0 01/02/2018 [facility] Hgb 10.8 g/dL 12.0 - 16.0 01/02/2018 [facility] Hct 32.7 % 36.0 - 48.0 01/02/2018 [facility] MCV 82.2 fL 80.0 - 98.0 01/02/2018 [facility] BLOOD BANK RESULTS Antibody Scrn Negative (01/01/18 12:06 PM) 01/01/2018 [facility] BLOOD BANK RESULTS ABO/Rh O POS 01/01/2018 [facility] BLOOD BANNER RESULTS RBC product Product available 1 (01/01/18 9:51 AM) 01/01/2018 Result Comment: 01/01/2018 13:26 [id number] Spoke to Hilario Parks 01/01/2018 13:26 [place] [facility] ANEMIA STUDY Vitamin B12 Lvl 847 pg/mL 254 - 1320 01/01/2018 [facility] ANEMIA STUDY % Satur Fe 21 % 12 - 57 01/01/2018 [facility] ANEMIA STUDY Iron 27 ug/dl 30 - 160 01/01/2018 [facility] ANEMIA STUDY UIBC 103 ug/dl 110 - 370 01/01/2018 [facility] ANEMIA STUDY TIBC 130 ug/dl 228 - 428 01/01/2018 [facility] ANEMIA STUDY Folate Lvl 14.6 ng/mL >=3.0 ng/mL 01/01/2018 [facility] ANEMIA STUDY Ferritin Lvl 268 ng/mL 5 - 204 01/01/2018 [facility] CHEM PANEL LDH 109 unit/L 98 - 192 01/01/2018 [facility] HEMATOLOGY Retic Auto 2.0 % 0.5 - 1.5 01/01/2018 [facility] Abdomen/Pelvis w IV contrast CT Abdomen/Pelvis w IV contrast CT Patient Name: DELTA BARRIOS : 1985; Age: 32 years y/o Female MR: [id number] Study: Abdomen/Pelvis w IV contrast CT 12/30/2017 12:02 PM CDT Ordering Physician: Clinical Indication: - Crohn's disease with the right lower quadrant pain, soft tissue inflammation, draining fistula tract Comparison: CT abdomen pelvis 12/25/2017 CT Radiation Dose DLP 215 mGy-cm CT abdomen pelvis with IV contrast. Minimal subsegmental atelectasis left lung base. No pleural effusion. Upper bowel viscera demonstrate no new or acute findings. No bowel obstruction or pathologic distention. The small bowel enterostomy suture lines are present in the lower abdomen and pelvis. There is no free air. A right pelvic collection just medial to the iliac bone measures 19 x 25 mm, changed little from 12/25/2017. And an adjacent overlying fistulous tract to the skin is again noted. There is mild increase in the inflammation within the subjacent iliopsoas muscle. Phlegmonous changes within the iliac is muscle are noted, without discrete drainable collection, at this time. There is however increasing skin and soft tissue inflammation in the right lower pelvis near the above-noted the fistula. There is a presacral perirectal tubular collection measuring 10 x 15 mm x 29 mm, which is unchanged from multiple previous studies and is likely a chronic sinus tract. 2.7 cm and 2.3 cm right ovarian cysts are incidentally noted. IMPRESSION: Stable small right pelvic collection which appears to communicate with the skin via a fistulous tract, as before. There is interval increasing skin and soft tissue inflammation in the right pelvis adjacent to the fistula tract. Additional increasing inflammation, phlegmonous changes involving the right iliacus and psoas muscles. No discrete drainable fluid collection is however demonstrated. SL: [id number] 12/31/2017 - - Read by: Nain Chan MD Dictated Date/time: 12/31/17 11:01 Electronically Signed by: Nain Chan MD 12/31/17 11:24 FINAL REPORT [facility] IMMUNOLOGY Prealbumin 10.0 mg/dL 18.0 - 45.0 12/31/2017 [facility] LIPIDS Trig 176 mg/dL <=149 mg/dL 12/31/2017 [facility] CHEM PANEL A/G Ratio 0.8 0.7 - 1.6 12/30/2017 [facility] CHEM PANEL Globulin 4.0 g/dL 2.7 - 4.2 12/30/2017 [facility] CHEM PANEL B/C Ratio 11 6 - 25 12/30/2017 [facility] CHEM PANEL Alk Phos 266 unit/L 39 - 136 12/30/2017 [facility] CHEM PANEL Bili Total 0.5 mg/dL 0.2 - 1.3 12/30/2017 [facility] CHEM PANEL AST 15 unit/L 0 - 37 12/30/2017 [facility] CHEM PANEL ALT 34 unit/L 0 - 65 12/30/2017 [facility] CHEM PANEL Albumin Lvl 3.0 g/dL 3.5 - 5.0 12/30/2017 [facility] CHEM PANEL Total Protein 7.0 g/dL 6.4 - 8.4 12/30/2017 [facility] ENDOCRINOLOGY S Preg Negative *NA* (12/30/17 1:06 PM) Negative 12/30/2017 [facility] HEMATOLOGY Monocytes # 2.2 K/CMM 0.0 - 0.8 12/30/2017 [facility] HEMATOLOGY Eosinophils # 0.1 K/CMM 0.0 - 0.5 12/30/2017 [facility] HEMATOLOGY Basophils 0.3 % 0.0 - 1.0 12/30/2017 [facility] HEMATOLOGY Segs-Bands # 18.3 K/CMM 1.5 - 8.1 12/30/2017 [facility] HEMATOLOGY Lymphocytes # 1.2 K/CMM 1.0 - 5.5 12/30/2017 [facility] HEMATOLOGY Monocytes 10.1 % 2.0 - 12.0 12/30/2017 [facility] HEMATOLOGY Eosinophils 0.3 % 0.0 - 4.0 12/30/2017 [facility] HEMATOLOGY Basophils # 0.1 K/CMM 0.0 - 0.2 12/30/2017 [facility] HEMATOLOGY Lymphocytes 5.7 % 20.0 - 40.0 12/30/2017 [facility] HEMATOLOGY Segs 83.6 % 45.0 - 75.0 12/30/2017 [facility] CHEM PANEL eGFR 99 mL/min/1.73m2 12/25/2017 Result Comment: The eGFR is calculated using the [...] from the National Kidney Disease Education Program (NKDEP) which additionally recommends that when the eGFR is used in patients with extremes of body mass index for purposes of drug dosing, the eGFR should be multiplied by the estimated BMI. [facility] CHEM PANEL POC Creatinine 0.8 mg/dL 0.5 - 1.4 12/25/2017 [facility] URINE CHEM U Preg Negative (12/25/17 3:13 PM) Negative 12/25/2017 [facility] Abdomen/Pelvis w IV contrast CT Abdomen/Pelvis w IV contrast CT Addendum: Findings were discussed with Dr. Arguelles at the time of this addendum. CT ABDOMEN PELVIS WITH CONTRAST: HISTORY: Crohn's disease with history of right lower quadrant fistula, post removal of drainage catheter with persistent drainage. TECHNIQUE: Multislice acquisition of the abdomen and pelvis was done with IV contrast. Oral contrast was also administered. Sagittal and coronal reconstructions were also done. FINDINGS: There is a small persistent fistula in the right lower quadrant extending from the region of the bowel anastomosis along the right iliacus muscle to the cutaneous surface. There is no drainable abscess. There is no other intra-abdominal free fluid or abscess. There is no other pelvic mass, abscess or fluid collection. The liver, spleen, pancreas, kidneys, gallbladder and adrenal glands show no acute abnormalities or changes from the previous CT on 12/08/2017. There are no other new findings. IMPRESSION: Small right lower quadrant enterocutaneous fistula. There is no drainable fluid collection at this time. ADDENDUM: Dr. Arguelles's cell number was called, but as of this time there has been no response. [id number] 12/25/2017 - - Read by: Bradley Gann MD Dictated Date/time: 12/25/17 17:16 Electronically Signed by: Bradley Gann MD 12/25/17 17:17 FINAL REPORT - - Read by: Bradley Gann MD Dictated Date/time: 12/25/17 16:59 Electronically Signed by: Bradley Gann MD 12/25/17 17:12 FINAL REPORT [facility] CHEM PANEL Phosphorus 3.8 mg/dL 2.5 - 4.5 12/09/2017 [facility] CHEM PANEL eGFR 138 mL/min/1.73m2 12/09/2017 Result Comment: The eGFR is calculated using the [...] from the National Kidney Disease Education Program (NKDEP) which additionally recommends that when the eGFR is used in patients with extremes of body mass index for purposes of drug dosing, the eGFR should be multiplied by the estimated BMI. [facility] CHEM PANEL BUN 17 mg/dL 7 - 22 12/09/2017 [facility] CHEM PANEL Potassium Lvl 4.0 meq/L 3.5 - 5.1 12/09/2017 [facility] CHEM PANEL Chloride Lvl 103 meq/L 95 - 109 12/09/2017 [facility] CHEM PANEL Creatinine Lvl 0.42 mg/dL 0.50 - 1.40 12/09/2017 [facility] CHEM PANEL Sodium Lvl 137 meq/L 135 - 145 12/09/2017 [facility] CHEM PANEL AGAP 12.0 meq/L 10.0 - 20.0 12/09/2017 [facility] CHEM PANEL CO2 26 meq/L 24 - 32 12/09/2017 [facility] CHEM PANEL Calcium Lvl 8.7 mg/dL 8.5 - 10.5 12/09/2017 [facility] CHEM PANEL Glucose Lvl 123 mg/dL 70 - 99 12/09/2017 [facility] CHEM PANEL Magnesium Lvl 1.9 mg/dL 1.8 - 2.4 12/09/2017 [facility] Abdomen/Pelvis w IV contrast CT Abdomen/Pelvis w IV contrast CT Patient Name: DELTA BARRIOS : 1985; Age: 31 years y/o Female MR: [id number] * I. COMPUTED TOMOGRAPHY SCAN OF THE ABDOMEN with contrast. * II. COMPUTED TOMOGRAPHY SCAN OF THE PELVIS with contrast HISTORY: Crohn's disease, intra-abdominal fluid collections. The patient underwent placement of a 10-Colombian drain into a right lower quadrant collection on 11/25/2017 and placement of a 12-Colombian drainage catheter into the right lower quadrant collection on 12/04/2017. Comparison is made to 12/03/2017. A computed tomography scan of the abdomen and pelvis of 11/25/2017, and a computed tomography scan of the abdomen and pelvis of 10/11/2013 and images obtained during abscess drainage from 12/04/2017 and 11/25/2017 were reviewed. * TECHNIQUE: I. COMPUTED TOMOGRAPHY SCAN OF THE ABDOMEN with contrast: Helical CT images were obtained on a multidetector computed tomography from the domes the diaphragms to the iliac crests following the intravenous administration of nonionic iodinated contrast. Oral contrast was also provided. II. COMPUTED TOMOGRAPHY SCAN OF THE PELVIS with contrast: Helical CT images were obtained on a multidetector computed tomography from the iliac crests to the pubic symphysis following the intravenous administration of nonionic iodinated contrast. Oral contrast was also provided. Coronal and sagittal reconstructions were obtained. CT radiation dose DLP: 499 mGy-cm IMPRESSION: 1. The anterior right lower quadrant drainage catheter is in good position. There is been near complete drainage of the collection. 2. There is a small (approximately 9 mm) residual collection adjacent to the catheter just medial to the right iliac wing on image 62 of series 2 which has a small amount of contrast. This is concerning for a fistula. Please correlate with catheter output. Perhaps, an injection of the drainage catheter (abscessogram) may be helpful to determine if there is a fistula. 3. There is mild residual inflammatory change in the right iliopsoas muscle and slight enlargement the right iliopsoas muscle, probably related to inflammation. No psoas abscess is seen. 4. No new abscess or fluid collection is seen. 5. There appears to be thickening of the rectum, possible involvement of inflammatory bowel disease. There is mild residual thickening of a loop of bowel in the right lower quadrant near the drain which has improved. 6. There is a small (19 x 13 mm) soft tissue density anterior to the sacrum probably representing a phlegmon or post inflammatory changes. No abscess or fluid collection is seen in this region. 7. There is no evidence of bowel obstruction or ileus. 8. There is no free intraperitoneal gas. 9. No mass, adenopathy, or ascites. 10. The patient previously had a 2.7 cm left ovarian cysts which is no longer present. There is a very small residual crenulated cyst on the order of 7 mm. 11. 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 12. The liver is otherwise unremarkable. 13. The spleen, pancreas, and adrenal glands are normal in appearance. 14. The kidneys are normal in size and show good, symmetrical enhancement without hydronephrosis. No calculi or focal renal lesions are seen. 15. The aorta is normal in caliber. 16. The visualized lung bases are clear. There are no pleural effusions. 17. The heart is normal in size. There is no pericardial effusion. 18. The regional skeleton is unremarkable. There is no evidence of sacroiliitis. There are no blastic or destructive lesions. SL: RACH 12/08/2017 - - Read by: Qasim Irvin MD Dictated Date/time: 12/08/17 22:49 Electronically Signed by: Qasim Irvin MD 12/08/17 23:03 FINAL REPORT [facility] CHEM PANEL Magnesium Lvl 2.1 mg/dL 1.8 - 2.4 12/08/2017 [facility] CHEM PANEL Phosphorus 3.2 mg/dL 2.5 - 4.5 12/08/2017 [facility] ELECTROLYTES AGAP 10.7 meq/L 10.0 - 20.0 12/08/2017 [facility] ELECTROLYTES eGFR 139 mL/min/1.73m2 12/08/2017 Result Comment: The eGFR is calculated using the [...] from the National Kidney Disease Education Program (NKDEP) which additionally recommends that when the eGFR is used in patients with extremes of body mass index for purposes of drug dosing, the eGFR should be multiplied by the estimated BMI. [facility] ELECTROLYTES Calcium Lvl 9.0 mg/dL 8.5 - 10.5 12/08/2017 [facility] ELECTROLYTES Creatinine Lvl 0.41 mg/dL 0.50 - 1.40 12/08/2017 [facility] ELECTROLYTES CO2 29 meq/L 24 - 32 12/08/2017 [facility] ELECTROLYTES Chloride Lvl 102 meq/L 95 - 109 12/08/2017 [facility] ELECTROLYTES Potassium Lvl 3.7 meq/L 3.5 - 5.1 12/08/2017 [facility] ELECTROLYTES Sodium Lvl 138 meq/L 135 - 145 12/08/2017 [facility] ELECTROLYTES BUN 15 mg/dL 7 - 12/08/2017 [facility] ELECTROLYTES Glucose Lvl 104 mg/dL 70 - 99 12/08/2017 [facility] HEMATOLOGY Hct 31.9 % 36.0 - 48.0 12/08/2017 [facility] HEMATOLOGY Hgb 10.7 g/dL 12.0 - 16.0 12/08/2017 [facility] CHEM PANEL eGFR 125 mL/min/1.73m2 12/07/2017 Result Comment: The eGFR is calculated using the [...] from the National Kidney Disease Education Program (NKDEP) which additionally recommends that when the eGFR is used in patients with extremes of body mass index for purposes of drug dosing, the eGFR should be multiplied by the estimated BMI. [facility] CHEM PANEL AGAP 10.8 meq/L 10.0 - 20.0 12/07/2017 [facility] CHEM PANEL Glucose Lvl 124 mg/dL 70 - 99 12/07/2017 [facility] CHEM PANEL Creatinine Lvl 0.56 mg/dL 0.50 - 1.40 12/07/2017 [facility] CHEM PANEL BUN 20 mg/dL 7 - 12/07/2017 [facility] CHEM PANEL Calcium Lvl 8.9 mg/dL 8.5 - 10.5 12/07/2017 [facility] CHEM PANEL CO2 28 meq/L 24 - 32 12/07/2017 [facility] CHEM PANEL Chloride Lvl 103 meq/L 95 - 109 12/07/2017 [facility] CHEM PANEL Potassium Lvl 3.8 meq/L 3.5 - 5.1 12/07/2017 [facility] CHEM PANEL Sodium Lvl 138 meq/L 135 - 145 12/07/2017 [facility] CHEM PANEL Magnesium Lvl 2.1 mg/dL 1.8 - 2.4 12/07/2017 [facility] CHEM PANEL Phosphorus 3.4 mg/dL 2.5 - 4.5 12/07/2017 [facility] CHEM PANEL Lactic Acid Lvl 1.4 mMol/L 0.5 - 2.2 12/06/2017 [facility] CHEM PANEL Procalcitonin Lvl <0.05 ng/mL 0.00 - 0.10 12/06/2017 [facility] URINE AND STOOL UA Sq Epi Occasional /LPF Few /LPF 12/06/2017 [facility] URINE AND STOOL UA Mucus Few /LPF None Seen /LPF 12/06/2017 [facility] URINE AND STOOL UA Glucose Negative mg/dL Negative mg/dL 12/06/2017 [facility] URINE AND STOOL UA Ketones Negative mg/dL Negative mg/dL 12/06/2017 [facility] URINE AND STOOL UA Bili Negative *NA* (12/06/17 4:26 PM) Negative 12/06/2017 [facility] URINE AND STOOL UA Blood Negative (12/06/17 4:26 PM) Negative 12/06/2017 [facility] URINE AND STOOL UA Protein Negative mg/dL Negative mg/dL 12/06/2017 [facility] URINE AND STOOL UA Nitrite Negative (12/06/17 4:26 PM) Negative 12/06/2017 [facility] URINE AND STOOL UA Leuk Est Negative (12/06/17 4:26 PM) Negative 12/06/2017 [facility] URINE AND STOOL UA Urobilinogen <=1.0 mg/dL 0.1 - 1.0 12/06/2017 [facility] URINE AND STOOL UA Color Yellow *NA* (12/06/17 4:26 PM) Yellow 12/06/2017 [facility] URINE AND STOOL UA Turbidity Clear (12/06/17 4:26 PM) Clear 12/06/2017 [facility] URINE AND STOOL UA Spec Grav 1.012 <=1.030 12/06/2017 [facility] URINE AND STOOL UA pH 7.0 5.0 - 8.0 12/06/2017 [facility] HEMATOLOGY MPV 7.2 fL 7.4 - 10.4 12/05/2017 [facility] RDW 15.8 % 11.5 - 14.5 12/05/2017 [facility] Platelet 344 K/CMM 133 - 450 12/05/2017 [facility] MCV 80.5 fL 80.0 - 98.0 12/05/2017 [facility] MCHC 34.3 g/dL 32.0 - 36.0 12/05/2017 [facility] MCH 27.6 pg 27.0 - 31.0 12/05/2017 [facility] WBC 15.8 K/CMM 3.7 - 10.4 12/05/2017 [facility] Hct 29.6 % 36.0 - 48.0 12/05/2017 [facility] Hgb 10.2 g/dL 12.0 - 16.0 12/05/2017 [facility] RBC 3.68 M/CMM 4.20 - 5.40 12/05/2017 [facility] Protein S Func 72 % 54 - 137 12/05/2017 [facility] AT III Func 119 % 77 - 140 12/05/2017 [facility] F5 Leiden PCR Negative (12/04/17 11:35 PM) 12/05/2017 [facility] F5 Leiden Intrp FACTOR V LEIDEN: NegativeINTERPRETATION:Molecular analysis for the Factor V Leiden, [id number] mutation was negative.Other causes of activated protein C resistance and hereditary forms of venousthrombosis are not ruled out. Final diagnosis requires correlation withclinical history and other pertinent laboratory findings.Where appropriate, medical consultation and/or genetic counseling should beoffered to inform and explain the risk implications and genetic implicationsof these test results.ASSAY LIMITATIONS:The assay uses the FDA-cleared [employer] Factor V Leiden IVD(Poymerase chain reaction/FRET detection)kit, [employer] LC Instrument and the [employer] LightCycler 1.2 Instrument. A 222-bp fragment of Factor V gene (FV) containing the Factor V Leiden sequence is amplified in the assay. The assay is designed to detect the G [id number] mutation only. Other causes of activated protein C resistance and hereditary forms of venous thrombosis are not ruled out. However,the melting curve analysis may implicate the presence of possible rare mutations at positions 1689, 1692 and 1696. (Further testing will be recommended in the report). A minimum detection level is 202 copies of Factor V Leiden per reaction. The level of agreement between the Factor V Leiden Kit and sequence analysis was 99.4%. The test result must be interpreted along with the patient's clinical history and relevant laboratory data. This assay has been validated by [facility]. 12/05/2017 [facility] F2 Mutation PCR Negative (12/04/17 11:35 PM) 12/05/2017 [facility] F2 Mut Interp FACTOR II PT: NegativeINTERPRETATION:Molecular analysis for the Factor II (Prothrombin) [id number] mutation wasnegative. Other causes of elevated prothrombin levels and hereditary formsof venous thrombosis are not ruled out. Final diagnosis requires correlationwith clinical history and other pertinent laboratory findings.Where appropriate, medical consultation and genetic counseling should beoffered to inform and explain the risk implications and genetic implicationsof these test results.ASSAY LIMITATIONS:The assay uses the FDA-cleared [employer] Factor II (Prothrombin) [id number] IVD(Polymerase chain reaction/FRET detection)kit, [employer] LC Instrumentand the [employer] LightCycler 1.2 Instrument. A 165-bp fragment of Factor IIgene(FII) containing the Factor II [id number] sequence is amplified in theassay. The assay is designed to detect the [id number] mutation only. Othercauses of elevated prothrombin levels and hereditary forms of venousthrombosis are not ruled out. However, the melting curve analysis mayimplicate the presence of a possible rare mutation at position 99534 (Furthertesting will be recommended in the report). A minimum detection level is 198copies of Factor II per reaction. The level of agreement between the FactorII(Prothrombin) [id number] Kit and sequence analysis was 98.9%. The test resultmust be interpreted along with the patient's clinical history and revelant laboratory data. This assay has been validated by [facility]. 12/05/2017 [facility] IMMUNOLOGY JAK2 (V617F) Mutation Detection Comment 12/05/2017 Result Comment: Result: NEGATIVE for the JAK2 V617F mutation. Interpretation: The G to T nucleotide change encoding the V617F mutation was not detected. This result does not rule out the presence of the JAK2 mutation at a level below the sensitivity of detection of this assay, or the presence of other mutations within JAK2 not detected by this assay. This result does not rule out a diagnosis of polycythemia vera, essential thrombocythemia or idiopathic myelofibrosis as the V617F mutation is not detected in all patients with these disorders. [facility] JAK2 (V617F) Background Comment 12/05/2017 Result Comment: JAK2 is a cytoplasmic tyrosine kinase with a walls role in signal transduction from multiple hematopoietic growth factor receptors. A point mutation within exon 14 of the JAK2 gene ([id number]) encoding a valine to phenylalanine substitution at position 617 of the JAK2 protein (V617F) has been identified in most patients with polycythemia vera, and in about half of those with either essential thrombocythemia or idiopathic myelofibrosis. The V617F has also been detected, although infrequently, in other myeloid disorders such as chronic myelomonocytic leukemia and chronic neutrophilic luekemia. V617F is an acquired mutation that alters a highly conserved valine present in the negative regulatory JH2 domain of the JAK2 protein and is predicted to dysregulate kinase activity. Methodology: Total genomic DNA was extracted and subjected to TaqMan real-time PCR amplification/detection. Two amplification products per sample were monitored by real-time PCR using primers/probes specific to JAK2 wild type (WT) and JAK2 mutant V617F. The [employer] Absolute Quantitation software will compare the patient specimen valuse to the standard curves and generate percent values for wild type and mutant type. In vitro studies have indicated that this assay has an analytical sensitivity of 1%. References: Bob EJ, Gustavo LM, Ronald PJ, et al. Acquired mutation of the tyrosine kinase JAK2 in human myeloproliferative disorders. Lancet. 2004Nov 23-; 365(8794):5251-7050. Abdias Ash, Vito V, Jenny Field NAYELI. A unique clonal JAK2 mutation leading to constitutive signaling causes polycythaemia vera. Nature. 2005 Jan 02; 739(0803):3020-1801. Emily R, Arcadio F, Balbina , et al. A gain-of- function mutation of JAK2 in myeloproliferative disorders. N Engl J Med. 2005 Jan 02; 352(42):1943-5727. Performed At: [facility] [address] [facility], [place] [id number] Gladys Ordonez MD Ph:[phone] Performed At: [facility] [address] [facility] [place], [place] [id number] Gladys Ordonez MD Ph:[phone] [facility] JAK2 Director Review Comment 12/05/2017 Result Comment: Gianna Pinon MD, PhD Director, Molecular Oncology [facility] [place] [address] [facility] Protein C Func 182 % 72 - 147 12/05/2017 [facility] Lup Interp Negative for lupus anticoagulant by DRVV screen and hexagonal phospholipidneutralization test. If there is a strong clinical suspicion of lupus anticoagulant,additional testing, to include repeat studies at a clinically appropriate interval andanticardiolipin antibody assays, is recommended.Interpretation performed at [facility]. 12/05/2017 [facility] dRVV Ratio 1.19 <=1.20 12/05/2017 [facility] Hex Phos N Negative (12/04/17 10:17 PM) Negative 12/05/2017 [facility] Cardiolipin IgG null <=19.9 GPL 12/05/2017 [facility] Cardiolipin IgM 0.2 MPL-U/mL <=19.9 MPL 12/05/2017 [facility] Cardiolipin IgA null <=19.9 APL 12/05/2017 [facility] Beta2-Glycoprotein IgG null <=19.9 unit/mL 12/05/2017 [facility] Beta2-Glycoprotein IgM 0.3 unit/mL <=19.9 unit/mL 12/05/2017 [facility] Beta2-Glycoprotein IgA 0.6 unit/mL <=19.9 unit/mL 12/05/2017 [facility] Abscess abdomen peritoneum drainage VR Abscess abdomen peritoneum drainage VR Patient Name: DETLA BARRIOS : 1985; Age: 31 years Female MR: [id number] Study: Abscess abdomen peritoneum drainage VR 12/03/2017 12:33 PM CDT PROCEDURE: CT-guided placement of a drainage catheter within a right lower quadrant abscess CLINICAL INFORMATION: Right lower quadrant abscess, enterocutaneous fistula, history of Crohn's COMPARISON: CT on 12/03/2017 CONSENT: The procedure, risks, benefits and alternatives were discussed with the patient and written informed consent was obtained. A "time out" was performed per protocol prior to the procedure. 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 50 mg IV Benadryl also administered. 1% lidocaine was administered for local anesthesia. Patient's vital signs were monitored continuously throughout the procedure by a dedicated nurse. The patient was placed in a supine position on the CT table. Preprocedure CT again demonstrated the right lower quadrant air-fluid collection. The right lower quadrant was prepped and draped with sterile technique and the skin was anesthetized with 1% lidocaine. Under CT guidance, a 12-Colombian multipurpose drainage catheter was advanced into the right lower quadrant fluid collection through the existing fistulous tract. The drainage catheter was connected to a NAYELI bulb. Approximately 10 mL of feculent/purulent material was aspirated. The catheter was sutured to the skin and sterile dressings were applied. Postprocedure imaging demonstrated no immediate complication and adequate position of the catheter. Patient tolerated the procedure well and transferred to the recovery room in stable condition. IMPRESSION: Successful CT-guided placement of a 12-Colombian drainage catheter within the right lower quadrant fluid collection. SL: [id number] 12/04/2017 - - Read by: Marvel Valdes MD Dictated Date/time: 12/04/17 12:04 Electronically Signed by: Marvel Valdes MD 12/04/17 12:07 FINAL REPORT [facility] RDW 15.9 % 11.5 - 14.5 12/04/2017 [facility] Platelet 413 K/CMM 133 - 450 12/04/2017 [facility] MPV 7.1 fL 7.4 - 10.4 12/04/2017 [facility] MCH 26.3 pg 27.0 - 31.0 12/04/2017 [facility] MCHC 32.5 g/dL 32.0 - 36.0 12/04/2017 [facility] Hgb 13.6 g/dL 12.0 - 16.0 12/04/2017 [facility] Hct 41.8 % 36.0 - 48.0 12/04/2017 [facility] MCV 80.9 fL 80.0 - 98.0 12/04/2017 [facility] RBC 5.17 M/CMM 4.20 - 5.40 12/04/2017 [facility] WBC 19.1 K/CMM 3.7 - 10.4 12/04/2017 [facility] IMMUNOLOGY Prealbumin 15.1 mg/dL 18.0 - 45.0 12/04/2017 [facility] LIPIDS Trig 127 mg/dL <=149 mg/dL 12/04/2017 [facility] Abdomen/Pelvis w IV contrast CT Abdomen/Pelvis w IV contrast CT CT ABDOMEN/PELVIS WITH IV CONTRAST HISTORY: Fistulizing Crohn's disease; - r/o abscess, has significant drainage; TECHNIQUE: Axial imaging of abdomen and pelvis with multiplanar reformations. IV CONTRAST: 100cc Omnipaque. GI CONTRAST: No. CT Radiation Dose: DYA=246.53 mGy-cm COMPARISON: CT abdomen/pelvis dated 11/25/2017 and 10/11/2013 FINDINGS: LOWER CHEST: The lung bases are clear. 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 No acute liver abnormality. Spleen is upper limit of normal in size. Normal pancreas. Normal adrenal glands. Sludge in the gallbladder versus vicarious excretion of contrast. No calcified gallstones. No biliary dilation. GENITOURINARY: Normal right kidney. Small subcentimeter left renal cyst. No hydronephrosis. Normal urinary bladder. No abnormality of the pelvic reproductive organs is evident. STOMACH AND BOWEL AND APPENDIX: Stomach and duodenum are normal. Changes of total colectomy with anal pouch again noted. Small presacral rim-enhancing fluid collection adjacent to the anal pouch is unchanged measuring 2.5 x 1.5 x 1.5 cm. Rim-enhancing abscess/cavernous fistula track within the anterior aspect of the right iliacus muscle is again noted and seen to drain to the right lower quadrant skin in 2 places and also seen to communicate with a loop of right lower quadrant small bowel (coronal image 30). Gas and fluid is present within this rim-enhancing collection. The collection measures approximately 5.3 x 2.0 x 2.9 cm, similar to the prior exam. Superiorly the collection has mildly increased in size with a new 1.5 x 1.5 x 2.5 cm loculation more medially within the iliacus muscle deep to the psoas muscle. Prominent associated right lower quadrant soft tissue inflammatory fat stranding. No other fistula or abscess collection is seen. No bowel obstruction. OTHER SOFT TISSUES, VESSELS, AND BONES: No ascites or pneumoperitoneum. Arterial structures normal. Osseous structures unremarkable. IMPRESSION: 1. Rim-enhancing draining abscess/cavernous fistula track within the right iliacus muscle which communicates with the small bowel in the skin is similar in size to the prior CT. Findings compatible with enterocutaneous fistula. 2. There is a new small loculation of this collection more medially within the iliacus muscle. 3. Unchanged small presacral loculated fluid collection adjacent to the anal pouch, possible abscess. 4. 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 SL: MEENA 12/03/2017 - - Read by: Josias Perez MD Dictated Date/time: 12/03/17 20:15 Electronically Signed by: Josias Perez MD 12/03/17 20:35 FINAL REPORT [facility] Abd/Pelvis w/wo contrast MRI Enterography Abd/Pelvis w/wo contrast MRI EXAM: MRI enterography abdomen and pelvis HISTORY: Fistulizing Crohn disease COMPARISON: CT 12/03/2017 TECHNIQUE: Multiplanar images obtained of the abdomen, pelvis and bowel utilizing relative T1 and T2 weighting without and with contrast. The patient was able to drink only one bottle of Breeza contrast limiting evaluation of the bowel. 9 mm MultiHance IV contrast given. FINDINGS: LIVER: Thrombosis of the right portal vein is again noted. No discrete lesion is seen in the right hepatic lobe. OTHER SOLID ORGANS: The spleen is upper normal size. Sludge in the gallbladder. Small cyst left kidney. The right kidney, adrenals, and pancreas are unremarkable. The bladder is unremarkable. GASTROINTESTINAL TRACT: Subtotal colectomy and several small bowel anastomoses again noted. A sinus tract is again noted from a small bowel loop in the right lower quadrant to collection abutting or within the right iliacus muscle with sinus tracts extending anteriorly from the collection to the overlying skin; the collection measures approximately 5.5 cm with a 2.5 cm loculated collection just superiorly. A sinus tract also extends posteriorly from the rectal/anal pouch to the presacral soft tissues. IMPRESSION: 1. Chronic thrombosis right portal vein accounting for changes in the right hepatic lobe on CT. 2. Changes of Crohn disease with fistula from a small bowel loop to the right iliacus muscle with multiloculated collection or abscess right iliacus muscle with the largest component measuring approximately 5.5 cm with sinus tracts to the overlying skin. Small sinus tract from the rectal/anal pouch to the presacral region with stable small presacral collection or abscess. 3. Stable dilation of a small bowel loop in the lower abdomen adjacent to an anastomosis; follow-up abdominal radiographs can be obtained to evaluate for developing small bowel obstruction. [facility] 12/03/2017 - - Read by: Varun Sinclair MD Dictated Date/time: 12/04/17 09:02 Electronically Signed by: Varun Sinclair MD 12/04/17 10:04 FINAL REPORT [facility] C-REACTIVE PROTEIN 41.2 mg/L <=2.9 mg/L 12/03/2017 [facility] MCH 28.4 pg 27.0 - 31.0 12/03/2017 [facility] MCHC 35.2 g/dL 32.0 - 36.0 12/03/2017 [facility] MCV 80.5 fL 80.0 - 98.0 12/03/2017 [facility] RBC 4.14 M/CMM 4.20 - 5.40 12/03/2017 [facility] WBC 21.7 K/CMM 3.7 - 10.4 12/03/2017 [facility] RDW 16.0 % 11.5 - 14.5 12/03/2017 [facility] MPV 7.2 fL 7.4 - 10.4 12/03/2017 [facility] Platelet 465 K/CMM 133 - 450 12/03/2017 [facility] Abscess Catheter Check (VR) Abscess Catheter Check (VR) Patient Name: DELTA BARRIOS : 1985; Age: 31 years Female MR: [id number] Study: Abscess Catheter Check (VR) 12/02/2017 7:00 AM CDT PROCEDURE: Fluoroscopic guided assessment of the right lower quadrant abscess catheter CLINICAL INFORMATION: Right lower quadrant abscess, history of IBD COMPARISON: CT on 11/24/2017, drainage catheter placement on 11/25/2017 CONSENT: The procedure, risks, benefits and alternatives were discussed with the patient and written informed consent was obtained. 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 Initial farm mortgage agent image demonstrates the indwelling drainage catheter projecting over the right lower quadrant. Approximately 6 mL of Omnipaque 300 was administered through the catheter. No significant residual abscess cavity or fistulous connection. The catheter was removed intact. Sterile dressings applied. Patient tolerated the procedure well without immediate complication. IMPRESSION: No significant residual abscess cavity or fistulous connection. The catheter was subsequently removed intact. SL: [id number] 12/02/2017 - - Read by: Marvel Valdes MD Dictated Date/time: 12/02/17 10:26 Electronically Signed by: Marvel Valdes MD 12/02/17 10:30 FINAL REPORT [facility] BLOOD BANK RESULTS ABO/Rh O POS 11/28/2017 [facility] BLOOD BANK RESULTS Antibody Scrn Negative (11/27/17 10:11 PM) 11/28/2017 [facility] BLOOD BANK RESULTS RBC product Product available (11/27/17 6:47 PM) 11/27/2017 [facility] IMMUNOLOGY Prealbumin 7.3 mg/dL 18.0 - 45.0 11/27/2017 [facility] LIPIDS Trig 105 mg/dL <=149 mg/dL 11/27/2017 [facility] VANCOMYCIN:SUSC:PT:ISOLATE:ORDQN:TOBI Gram Stain Report Moderate WBC's Rare Gram Negative Rods 11/25/2017 [facility] VANCOMYCIN:SUSC:PT:ISOLATE:ORDQN:TOBI Culture: Aspirate/Body Fluid/Tissue Many Vancomycin Resistant Enterococcus Few Carola albicans Few Carola tropicalis 11/25/2017 [facility] VANCOMYCIN:SUSC:PT:ISOLATE:ORDQN:TOBI Carola tropicalis Carola tropicalis 11/25/2017 [facility] VANCOMYCIN:SUSC:PT:ISOLATE:ORDQN:TOBI Carola albicans Carola albicans 11/25/2017 [facility] VANCOMYCIN:SUSC:PT:ISOLATE:ORDQN:TOBI Vancomycin Resistant Enterococcus Vancomycin Resistant Enterococcus 11/25/2017 [facility] Abscess abdomen peritoneum drainage VR Abscess abdomen peritoneum drainage VR Clinical Indication: Crohn's disease, right lower quadrant collection. Comparison: CT abdomen and pelvis 11/25/2017 PROCEDURES PERFORMED: 1. Intra-abdominal abscess drainage 2. CT guidance 3. Moderate sedation Procedure: Prior to the procedure, the risks and benefits were explained to the patient and a signed written consent was obtained and placed on the chart. The patient was draped and prepped in usual sterile fashion and placed supine on the table. 1% lidocaine was used to anesthetize the skin. All elements of maximum sterile barrier technique were utilized. Sedation: Moderate sedation was administered by IR nurse and supervised by myself. 4 mg Versed and 200 mcg fentanyl were given IV for total sedation time of 16 minutes. Vital signs were monitored continuously. A noncontrast CT scan was performed to localize the abscess. The farm mortgage agent CT shows that the enteric contrast from the CT from earlier today is now in the right lower quadrant collections. The overlying skin was anesthetized with 1% lidocaine. A small incision in the skin was made. The incision, a 10-Colombian catheter was placed using trocar method into the largest locule of the collection. Approximately 4 mL of feculent material was obtained. Catheter was sutured to the skin and connected to a drainage bag. No immediate complication was seen. Samples were obtained for gram stain and cultures. IMPRESSION: 1. Successful placement of 10-Colombian internal drain into the largest locule of the right lower quadrant collection. 2. Patent fistula between the collection and an adjacent small bowel loop. SL: [id number] 11/25/2017 - - Read by: Bradley Lanier MD Dictated Date/time: 11/25/17 15:46 Electronically Signed by: Bradley Lanier MD 11/25/17 15:50 FINAL REPORT [facility] CHEM PANEL Albumin Lvl 2.2 g/dL 3.5 - 5.0 11/25/2017 [facility] CHEM PANEL Globulin 3.2 g/dL 2.7 - 4.2 11/25/2017 [facility] CHEM PANEL Alk Phos 159 unit/L 39 - 136 11/25/2017 [facility] CHEM PANEL Bili Total 0.5 mg/dL 0.2 - 1.3 11/25/2017 [facility] CHEM PANEL A/G Ratio 0.7 0.7 - 1.6 11/25/2017 [facility] CHEM PANEL ALT 26 unit/L 0 - 65 11/25/2017 [facility] CHEM PANEL AST 19 unit/L 0 - 37 11/25/2017 [facility] CHEM PANEL B/C Ratio 7 6 - 25 11/25/2017 [facility] CHEM PANEL Total Protein 5.4 g/dL 6.4 - 8.4 11/25/2017 [facility] HEMATOLOGY Segs-Bands # 7.7 K/CMM 1.5 - 8.1 11/25/2017 [facility] Lymphocytes # 1.5 K/CMM 1.0 - 5.5 11/25/2017 [facility] Basophils 0.2 % 0.0 - 1.0 11/25/2017 [facility] Monocytes # 1.1 K/CMM 0.0 - 0.8 11/25/2017 [facility] Eosinophils # 0.2 K/CMM 0.0 - 0.5 11/25/2017 [facility] Monocytes 10.7 % 2.0 - 12.0 11/25/2017 [facility] Eosinophils 2.4 % 0.0 - 4.0 11/25/2017 [facility] Segs 72.6 % 45.0 - 75.0 11/25/2017 [facility] Lymphocytes 14.1 % 20.0 - 40.0 11/25/2017 [facility] Abdomen/Pelvis w IV contrast CT Abdomen/Pelvis w IV contrast CT EXAM: CT abdomen and pelvis HISTORY: Abdominal pain, chronic Crohn disease COMPARISON: CT 10/11/2013 TECHNIQUE: Axial images of the abdomen and pelvis with sagittal and coronal reformats. IV and oral contrast. DLP 461 FINDINGS: GI TRACT: Subtotal colectomy with dilation of the residual distal sigmoid colon. Wall thickening of a small bowel loop in the right lower quadrant. SOLID ORGANS: New hepatomegaly and periportal edema with question of a small ill-defined low-attenuation focus in the posterior right hepatic lobe. The spleen is minimally enlarged. Tiny hypodensity left kidney may be a cyst. The right kidney, gallbladder, adrenals, pancreas, and bladder are unremarkable. Enlarged left ovary containing a 2.7 cm dominant follicle. Mild prominence of the parametrial vessels. PERITONEUM AND RETROPERITONEUM: Multiloculated abscess right lower quadrant abutting the iliacus muscle and measures approximately 6 x 3.5 cm. Possible 2.5 x 1.5 cm abscess presacral soft tissues. Mildly enlarged lymph node left internal iliac chain is nonspecific. LOWER CHEST: Dependent atelectasis lung bases. BONES: Mild scoliosis. IMPRESSION: 1. Approximately 6 cm abscess right lower quadrant abutting the iliacus muscle with sinus tract to the overlying skin possibly related to prior drainage. Possible 2.5 cm abscess presacral soft tissues. 2. Wall thickening of a small bowel loop compatible with Crohn disease, possibly active disease. Subtotal colectomy with dilation of distal sigmoid colon. 3. New hepatosplenomegaly. New periportal edema may reflect liver parenchymal disease; correlate with LFT. Question of an ill-defined low-attenuation lesion right hepatic lobe; MRI of the liver/abdomen without and with contrast can further evaluate. 4. Enlarged left ovary containing a 2.7 cm dominant follicle or small cyst. Transvaginal pelvic ultrasound can further evaluate. Prominent parametrial vessels, correlate for pelvic congestion syndrome. SL: [id number] 11/25/2017 - - Read by: Varun Sinclair MD Dictated Date/time: 11/25/17 09:04 Electronically Signed by: Varun Sinclair MD 11/25/17 09:32 FINAL REPORT [facility] URINE CHEM U Preg Negative (11/24/17 10:19 PM) Negative 11/25/2017 [facility] CHEM PANEL Albumin Lvl 2.8 g/dL 3.5 - 5.0 11/24/2017 [facility] CHEM PANEL ALT 32 unit/L 0 - 65 11/24/2017 [facility] CHEM PANEL Total Protein 7.6 g/dL 6.4 - 8.4 11/24/2017 [facility] CHEM PANEL Alk Phos 184 unit/L 39 - 136 11/24/2017 [facility] CHEM PANEL AST 27 unit/L 0 - 37 11/24/2017 [facility] CHEM PANEL Bili Total 0.4 mg/dL 0.2 - 1.3 11/24/2017 [facility] CHEM PANEL A/G Ratio 0.6 0.7 - 1.6 11/24/2017 [facility] CHEM PANEL Globulin 4.8 g/dL 2.7 - 4.2 11/24/2017 [facility] CHEM PANEL B/C Ratio 8 6 - 25 11/24/2017 [facility] HEMATOLOGY Sed Rate 80 mm/h 0 - 20 11/24/2017 [facility] HEMATOLOGY Monocytes 8.2 % 2.0 - 12.0 11/24/2017 [facility] HEMATOLOGY Lymphocytes # 0.7 K/CMM 1.0 - 5.5 11/24/2017 [facility] HEMATOLOGY Eosinophils # 0.1 K/CMM 0.0 - 0.5 11/24/2017 [facility] HEMATOLOGY Monocytes # 1.1 K/CMM 0.0 - 0.8 11/24/2017 [facility] HEMATOLOGY Segs-Bands # 11.2 K/CMM 1.5 - 8.1 11/24/2017 [facility] HEMATOLOGY Segs 85.5 % 45.0 - 75.0 11/24/2017 [facility] HEMATOLOGY Lymphocytes 5.3 % 20.0 - 40.0 11/24/2017 [facility] HEMATOLOGY Eosinophils 0.7 % 0.0 - 4.0 11/24/2017 [facility] HEMATOLOGY Basophils 0.3 % 0.0 - 1.0 11/24/2017 [facility] IMMUNOLOGY C-REACTIVE PROTEIN 153.0 mg/L <=2.9 mg/L 11/24/2017 [facility] CHEMISTRY U Preg Negative (10/11/2013 01:30:00) Negative 10/11/2013 Normal [facility] CHEMISTRY Globulin 3.5 g/dL 2.0 - 4.0 10/11/2013 Normal [facility] CHEMISTRY A/G Ratio 1.3 0.7 - 1.6 10/11/2013 Normal [facility] CHEMISTRY B/C Ratio 6 6 - 25 10/11/2013 Normal [facility] CHEMISTRY AGAP 13.8 meq/L 10.0 - 20.0 10/11/2013 Normal [facility] CHEMISTRY Bili Total 0.9 mg/dL 0.2 - 1.3 10/11/2013 Normal [facility] CHEMISTRY Alk Phos 62 unit/L 39 - 136 10/11/2013 Normal [facility] CHEMISTRY Total Protein 7.9 g/dL 6.4 - 8.4 10/11/2013 Normal [facility] CHEMISTRY eGFR 120 mL/min/1.73m2 10/11/2013 1Result Comment: The eGFR is calculated using [...] from the National Kidney Disease Education Program (NKDEP) which additionally recommends that when the eGFR is used in patients with extremes of body mass index for purposes of drug dosing, the eGFR should be multiplied by the estimated BMI. [facility] CHEMISTRY Calcium Lvl 9.1 mg/dL 8.5 - 10.5 10/11/2013 Normal [facility] CHEMISTRY Albumin Lvl 4.4 g/dL 3.5 - 5.0 10/11/2013 Normal [facility] CHEMISTRY ALANINE AMINOTRANSFERASE 26 unit/L 0 - 65 10/11/2013 Normal [facility] CHEMISTRY ASPARTATE TRANSAMINASE 14 unit/L 0 - 37 10/11/2013 Normal [facility] CHEMISTRY BUN 4 mg/dL 7 - 22 10/11/2013 LOW [facility] CHEMISTRY Creatinine Lvl 0.7 mg/dL 0.5 - 1.4 10/11/2013 Normal [facility] CHEMISTRY Sodium Lvl 138 meq/L 135 - 145 10/11/2013 Normal [facility] CHEMISTRY Potassium Lvl 3.8 meq/L 3.5 - 5.1 10/11/2013 Normal [facility] CHEMISTRY Chloride Lvl 102 meq/L 95 - 109 10/11/2013 Normal [facility] CHEMISTRY CO2 26 meq/L 24 - 32 10/11/2013 Normal [facility] CHEMISTRY Glucose Lvl 98 mg/dL 70 - 99 10/11/2013 Normal 2Interpretive Data: Adult reference range values reflect the clinical guidelines of the [place] [employer]. [facility] HEMATOLOGY Segs 83.2 % 45.0 - 75.0 10/11/2013 HI [facility] HEMATOLOGY Lymphocytes 13.2 % 20.0 - 40.0 10/11/2013 LOW [facility] HEMATOLOGY RBC Morph Normal (10/11/2013 01:30:00) 10/11/2013 Normal [facility] HEMATOLOGY Plt Morph Normal (10/11/2013 01:30:00) 10/11/2013 Normal [facility] HEMATOLOGY Monocytes # 0.3 K/CMM 0.0 - 0.8 10/11/2013 Normal [facility] HEMATOLOGY Lymphocytes # 1.3 K/CMM 1.0 - 5.5 10/11/2013 Normal [facility] HEMATOLOGY Segs-Bands # 8.0 K/CMM 1.5 - 8.1 10/11/2013 Normal [facility] HEMATOLOGY Basophils 0.0 % 0.0 - 1.0 10/11/2013 Normal [facility] HEMATOLOGY Eosinophils 0.8 % 0.0 - 4.0 10/11/2013 Normal [facility] HEMATOLOGY Monocytes 2.8 % 2.0 - 12.0 10/11/2013 Normal [facility] HEMATOLOGY Basophils # 0.0 K/CMM 0.0 - 0.2 10/11/2013 Normal [facility] HEMATOLOGY Eosinophils # 0.1 K/CMM 0.0 - 0.5 10/11/2013 Normal [facility] HEMATOLOGY WBC X 10x3 9.6 K/CMM 3.7 - 10.4 10/11/2013 Normal [facility] HEMATOLOGY MPV 7.9 fL 7.4 - 10.4 10/11/2013 Normal [facility] HEMATOLOGY MCHC 32.5 g/dL 32.0 - 36.0 10/11/2013 Normal [facility] HEMATOLOGY Platelet 222 K/CMM 133 - 450 10/11/2013 Normal [facility] HEMATOLOGY RDW 12.3 % 11.5 - 14.5 10/11/2013 Normal [facility] HEMATOLOGY RBC X 10x6 4.55 M/CMM 4.20 - 5.40 10/11/2013 Normal [facility] HEMATOLOGY Hct 38.9 % 36.0 - 48.0 10/11/2013 Normal [facility] HEMATOLOGY Hgb 12.7 g/dL 12.0 - 16.0 10/11/2013 Normal [facility] HEMATOLOGY MCH 27.8 pg 27.0 - 31.0 10/11/2013 Normal [facility] HEMATOLOGY MCV 85.6 fL 81.0 - 99.0 10/11/2013 Normal [facility] URINALYSIS UA Urobilinogen <=1.0 mg/dL 0.1 - 1.0 10/11/2013 [facility] URINALYSIS UA Bacteria Occasional /HPF None Seen 10/11/2013 [facility] URINALYSIS UA Sq Epi Many /LPF Few 10/11/2013 ABN [facility] URINALYSIS UA WBC 2 /HPF 0 - 5 10/11/2013 Normal [facility] URINALYSIS UA Nitrite Negative (10/11/2013 01:30:00) Negative 10/11/2013 Normal [facility] URINALYSIS UA Leuk Est Negative (10/11/2013 01:30:00) Negative 10/11/2013 Normal [facility] URINALYSIS UA Bili Negative *NA* (10/11/2013 01:30:00) Negative 10/11/2013 [facility] URINALYSIS UA Blood Negative (10/11/2013 01:30:00) Negative 10/11/2013 Normal [facility] URINALYSIS UA Ketones Negative mg/dL Negative 10/11/2013 [facility] URINALYSIS UA Protein Negative mg/dL Negative 10/11/2013 Normal [facility] URINALYSIS UA Glucose Negative mg/dL Negative 10/11/2013 [facility] URINALYSIS UA Spec Grav 1.010 <=1.030 10/11/2013 Normal [facility] URINALYSIS UA pH 7.0 5.0 - 8.0 10/11/2013 Normal [facility] URINALYSIS UA Color Yellow *NA* (10/11/2013 01:30:00) Yellow 10/11/2013 [facility] URINALYSIS UA Turbidity Slight *ABN* (10/11/2013 01:30:00) Clear 10/11/2013 ABN [facility] Abdomen/Pelvis w IV contrast CT Abdomen/Pelvis w IV contrast CT HISTORY: Abdominal pain. CT abdomen and pelvis with contrast. Liver, spleen, pancreas, adrenal glands and kidneys appear normal. No bowel obstruction free air or pathologic fluid. Left ovarian 2 and 3 cm cysts are noted. There is no other pelvic mass or fluid collection. No evidence for appendicitis or diverticulitis. IMPRESSION: Left ovarian cysts. No specific acute findings otherwise. SL:12 10/11/2013 - - Read by: Nain Chan Dictated Date/time: 10/11/13 04:38 Electronically Signed by: Nain Chan MD 10/11/13 04:40 FINAL REPORT [facility] Vital Signs Vital Sign Value Date Comments Source Systolic (mm Hg) 114 02/05/2018 [facility] Diastolic (mm Hg) 65 02/05/2018 [facility] Respitory Rate 16 02/05/2018 [facility] Temperature Oral (F) 98.2 F 02/05/2018 [facility] Heart Rate 81 02/05/2018 [facility] Systolic (mm Hg) 108 02/05/2018 [facility] Diastolic (mm Hg) 61 02/05/2018 [facility] Heart Rate 102 02/05/2018 [facility] Systolic (mm Hg) 98 02/05/2018 [facility] Diastolic (mm Hg) 58 02/05/2018 [facility] Temperature Oral (F) 98.7 F 02/05/2018 [facility] Temperature Oral (F) 98.8 F 02/05/2018 [facility] Heart Rate 94 02/05/2018 [facility] Weight 44.744 02/05/2018 [facility] Respitory Rate 16 02/04/2018 [facility] Weight 43.636 02/04/2018 [facility] BMI Calculated 18.79 02/04/2018 [facility] Height 152.4 cm 02/04/2018 [facility] Respitory Rate 16 02/03/2018 [facility] Heart Rate 99 01/04/2018 [facility] Systolic (mm Hg) 94 01/04/2018 [facility] Diastolic (mm Hg) 58 01/04/2018 [facility] Respitory Rate 14 01/04/2018 [facility] Temperature Oral (F) 98.0 F 01/04/2018 [facility] Heart Rate 82 01/04/2018 [facility] Respitory Rate 16 01/04/2018 [facility] Systolic (mm Hg) 145 01/04/2018 [facility] Diastolic (mm Hg) 85 01/04/2018 [facility] Temperature Oral (F) 98.8 F 01/04/2018 [facility] Systolic (mm Hg) 131 01/03/2018 [facility] Diastolic (mm Hg) 74 01/03/2018 [facility] Temperature Oral (F) 99.9 F 01/03/2018 [facility] Heart Rate 102 01/03/2018 [facility] Respitory Rate 16 01/03/2018 [facility] BMI Calculated 18.01 12/31/2017 [facility] Height 152.4 cm 12/31/2017 [facility] Weight 41.818 12/31/2017 [facility] BMI Calculated 18.2 12/30/2017 [facility] Weight 42.273 12/30/2017 [facility] Height 152.4 cm 12/30/2017 [facility] Weight 42.364 12/24/2017 [facility] Temperature Oral (F) 98.7 F 12/24/2017 [facility] Heart Rate 116 12/24/2017 [facility] Systolic (mm Hg) 115 12/24/2017 [facility] Diastolic (mm Hg) 78 12/24/2017 [facility] Temperature Oral (F) 99.0 F 12/16/2017 [facility] Heart Rate 98 12/16/2017 [facility] Systolic (mm Hg) 105 12/16/2017 [facility] Diastolic (mm Hg) 71 12/16/2017 [facility] Respitory Rate 18 12/16/2017 [facility] Respitory Rate 18 12/10/2017 [facility] Temperature Oral (F) 99 F 12/10/2017 [facility] Systolic (mm Hg) 109 12/10/2017 [facility] Diastolic (mm Hg) 74 12/10/2017 [facility] Heart Rate 99 12/10/2017 [facility] Temperature Oral (F) 98.5 F 12/09/2017 [facility] Heart Rate 75 12/09/2017 [facility] Respitory Rate 16 12/09/2017 [facility] Systolic (mm Hg) 115 12/09/2017 [facility] Diastolic (mm Hg) 73 12/09/2017 [facility] Respitory Rate 16 12/09/2017 [facility] Systolic (mm Hg) 111 12/09/2017 [facility] Diastolic (mm Hg) 65 12/09/2017 [facility] Heart Rate 77 12/09/2017 [facility] Temperature Oral (F) 98.5 F 12/09/2017 [facility] Weight 42.318 11/26/2017 [facility] Weight 42.33 11/24/2017 [facility] BMI Calculated 18.23 11/24/2017 [facility] Height 152.4 cm 11/24/2017 [facility] Temperature Oral (F) 97.8 F 10/11/2013 [facility] Diastolic (mm Hg) 58 10/11/2013 [facility] Systolic (mm Hg) 103 10/11/2013 [facility] Heart Rate 74 10/11/2013 [facility] Respitory Rate 14 10/11/2013 [facility] Diastolic (mm Hg) 66 10/11/2013 [facility] Systolic (mm Hg) 101 10/11/2013 [facility] Heart Rate 89 10/11/2013 [facility] Respitory Rate 16 10/11/2013 [facility] Height 154.94 cm 10/11/2013 [facility] Weight 40.909 10/11/2013 [facility] Temperature Oral (F) 98.3 F 10/11/2013 [facility] Respitory Rate 20 10/11/2013 [facility] Heart Rate 110 10/11/2013 [facility] Systolic (mm Hg) 110 10/11/2013 [facility] Diastolic (mm Hg) 75 10/11/2013 [facility] Encounters Location Location Details Encounter Type Encounter Number Reason For Visit Attending Provider ADM Date DC Date Status Source [facility] Emergency [id number] JANELLE BAÑUELOS 10/10/2013 10/11/2013 Active [facility] Inpatient [id number] Antonio Tello 11/24/2017 12/10/2017 [id number]2017 Active [facility] Col[facility] Outpatient [id number] Antonio Tello 12/03/2017 12/04/2017 [facility] [id number] [facility] 12/16/2017 Active [facility] [place] [id number] [facility] 12/16/2017 12/17/2017 [facility] [id number] [facility] 12/24/2017 Active [facility] General [facility] [place] Outpatient [id number] Randydouglas Elisha 12/24/2017 12/25/2017 [facility] [id number] [facility] 12/25/2017 12/26/2017 [facility] [id number] [facility] 12/30/2017 Active [facility] Emergency [id number] Carlkallie Madden 12/30/2017 12/30/2017 [facility] Inpatient [id number] Randydouglas Elisha 12/30/2017 01/04/2018 [facility] Inpatient [id number] Antonio Tello 02/03/2018 02/05/2018 [facility] [id number] [facility] 02/04/2018 Active [facility] Outpatient [id number] NORM ROBERSON 04/30/2018 Active [facility] [id number] [facility] 05/22/2018 Active [facility] [id number] [facility] 07[facility]05/2018 Active [facility] Procedures Procedure Code Date Perfomer Comments Source Creation of ileostomy [id number] [facility] Drainage of abscess [id number] [facility] Insertion of Port-a-cath [id number] [facility] Total colectomy [id number] [facility] Creation of ileostomy [id number] [facility] Drainage of abscess [id number] [facility] Insertion of Port-a-cath [id number] [facility] Total colectomy [id number] [facility]
--- OUTSIDE RECORDS SUMMARY | 2018-10-15 11:30 | XMS REPORT | Summary of Care ---
Author Author [facility] General Surgery [facility] General Surgery [place] Address Unknown Phone Unavailable Encounter HQ Faustina(FIN) [id number] Date(s): 12/16/17 - 12/16/17 [facility] General Surgery [place] [address] [facility] [address] [place] [address]- [phone] Discharge Disposition: Home or Self Care Attending Physician: Puja Arguelles MD Referring Physician: Antonio Tello MD Vital Signs Most recent to 1 oldest [Reference Range]: Temperature Oral 99.0 DegF [96.4-99.1 DegF] (12/16/17 5:10 PM) Blood Pressure 105/71 mmHg [90-140/60-90 mmHg] (12/16/17 5:10 PM) Respiratory Rate 18 BRMIN [14-20 BRMIN] (12/16/17 5:10 PM) Peripheral Pulse 98 bpm Rate [60-100 bpm] (12/16/17 5:10 PM) Problem List Condition Effective Dates Status Health [...] 10; Number of years: 8; entered on: 12/16/17 Assessment and Plan No data available for this section
--- OUTSIDE RECORDS SUMMARY | 2018-10-15 11:30 | XMS REPORT | CCD ---
Author Author Auto Generated Organization [facility] Address Unknown Phone Unavailable Care Team Providers Care Animal Eviscerator Name Role Phone Gibson Mcgarry CP Allergies, Adverse Reactions, Alerts Substance Reaction Status morphine Active Problem List Condition Effective Dates Status Ulcerative colitis Active UTI - Urinary tract infection Resolved Medications Medication Instructions Start Date End Date Status Dilaudid 1 mg, Route: IV, ONCE, Dosing 10/11/2013 10/11/2013 Completed Weight 40.909, kg, Start date: 10/11/13 1:26:00, Stop date: 10/11/13 1:26:00 Bentyl 10 mg oral 10 mg=1 cap, PO, QID, Pain, # 28 10/11/2013 10/18/2013 Ordered capsule cap, 0 Refill(s) [place] 10/325 oral 1-2 tab, PO, Q4-6H, Pain, # 30 tab, 10/11/2013 10/16/2013 Ordered tablet 0 Refill(s) ketorolac 30 mg, Route: IVP, Drug form: INJ, 10/11/2013 10/11/2013 Completed ONCE, Dosing Weight 40.909, kg, Priority: STAT, Start date: 10/11/13 5:21:00, Stop date: 10/11/13 5:21:00 Dilaudid 1 mg, Route: IV, ONCE, Dosing 10/11/2013 10/11/2013 Completed Weight 40.909, kg, Start date: 10/11/13 3:39:00, Stop date: 10/11/13 3:39:00 Dilaudid 1 mg, Route: IV, ONCE, Dosing 10/11/2013 10/11/2013 Completed Weight 40.909, kg, Start date: 10/11/13 4:58:00, Stop date: 10/11/13 4:58:00 Zofran 4 mg, Route: IVP, Drug form: INJ, 10/11/2013 10/11/2013 Completed ONCE, Dosing Weight 40.909, kg, Priority: STAT, Start date: 10/11/13 1:26:00, Stop date: 10/11/13 1:26:00 Vital Signs Most recent to oldest [Reference Range]: 1 2 3 Height 154.94 cm (10/10/2013 23:17:00) Temperature Oral [96.4-99.1 DegF] 97.8 DegF (10/11/2013 06:29:00) 98.3 DegF (10/10/2013 23:17:00) Systolic Blood Pressure [90-140 mmHg] 103 mmHg (10/11/2013 06:29:00) 101 mmHg (10/11/2013 02:00:00) 110 mmHg (10/10/2013 23:17:00) Diastolic Blood Pressure [60-90 mmHg] 58 mmHg *LOW* (10/11/2013 06:29:00) 66 mmHg (10/11/2013 02:00:00) 75 mmHg (10/10/2013 23:17:00) Respiratory Rate [14-20 BRMIN] 14 BRMIN (10/11/2013 06:29:00) 16 BRMIN (10/11/2013 02:00:00) 20 BRMIN (10/10/2013 23:17:00) Peripheral Pulse Rate [60-100 bpm] 74 bpm (10/11/2013 06:29:00) 89 bpm (10/11/2013 02:00:00) 110 bpm *HI* (10/10/2013 23:17:00) Weight 40.909 kg (10/10/2013 23:17:00) Results URINALYSIS Most recent to oldest [Reference Range]: 1 UA Turbidity [Clear] Slight *ABN* (10/11/2013 01:30:00) UA Color [Yellow] Yellow *NA* (10/11/2013 01:30:00) UA pH [5.0-8.0] 7.0 (10/11/2013 01:30:00) UA Spec Grav [<=1.030] 1.010 (10/11/2013 01:30:00) UA Glucose [Negative mg/dL] Negative mg/dL *NA* (10/11/2013:30:00) UA Blood [Negative] Negative (10/11/2013:30:00) UA Ketones [Negative mg/dL] Negative mg/dL *NA* (10/11/2013:30:00) UA Protein [Negative mg/dL] Negative mg/dL (10/11/2013:30:00) UA Urobilinogen [0.1-1.0 mg/dL] <=1.0 mg/dL *NA* (10/11/2013:30:00) UA Bili [Negative] Negative *NA* (10/11/2013:30:00) UA Leuk Est [Negative] Negative (10/11/2013:30:00) UA Nitrite [Negative] Negative (10/11/2013:30:00) UA WBC [0-5 /HPF] 2 /HPF (10/11/2013:30:00) UA Bacteria [None Seen /HPF] Occasional /HPF *NA* (10/11/2013:30:00) UA Sq Epi [Few /LPF] Many /LPF *ABN* (10/11/2013:30:00) CHEMISTRY Most recent to oldest [Reference Range]: 1 Sodium Lvl [135-145 mEq/L] 138 mEq/L (10/11/2013:30:00) Potassium Lvl [3.5-5.1 mEq/L] 3.8 mEq/L (10/11/2013:30:00) Chloride Lvl [95-109 mEq/L] 102 mEq/L (10/11/201330:00) CO2 [24-32 mEq/L] 26 mEq/L (10/11/201330:00) AGAP [10.0-20.0 mEq/L] 13.8 mEq/L (10/11/2013:30:00) Creatinine Lvl [0.5-1.4 mg/dL] 0.7 mg/dL (10/11/2013:30:00) eGFR 120 mL/min/1.73m2 1 *NA* (10/11/2013:30:00) BUN [7-22 mg/dL] 4 mg/dL *LOW* (10/11/201330:00) B/C Ratio [6-25] 6 (10/11/2013:30:00) Glucose Lvl [70-99 mg/dL] 98 mg/dL 2 (10/11/2013:30:00) Total Protein [6.4-8.4 g/dL] 7.9 g/dL (10/11/201330:00) Albumin Lvl [3.5-5.0 g/dL] 4.4 g/dL (10/11/201300) Globulin [2.0-4.0 g/dL] 3.5 g/dL (10/11/201330:00) A/G Ratio [0.7-1.6] 1.3 (10/11/201300) Calcium Lvl [8.5-10.5 mg/dL] 9.1 mg/dL (10/11/201330:00) ALT [0-65 unit/L] 26 unit/L (10/11/2013:00) AST [0-37 unit/L] 14 unit/L (10/11/201330:00) Alk Phos [39-136 unit/L] 62 unit/L (10/11/201330:00) Bili Total [0.2-1.3 mg/dL] 0.9 mg/dL (10/11/201330:00) U Preg [Negative] Negative (10/11/2013:30:00) 1Result Comment: The eGFR is calculated using [...] be mul tiplied by the estimated BMI. 2Interpretive Data: Adult reference range values reflect the clinical guidelines of the [place] [employer]. HEMATOLOGY Most recent to oldest [Reference Range]: 1 WBC [3.7-10.4 K/CMM] 9.6 K/CMM (10/11/2013:30:00) RBC [4.20-5.40 M/CMM] 4.55 M/CMM (10/11/2013:30:00) Hgb [12.0-16.0 g/dL] 12.7 g/dL (10/11/2013:30:00) Hct [36.0-48.0 %] 38.9 % (10/11/201330:00) MCV [81.0-99.0 fL] 85.6 fL (10/11/201330:00) MCH [27.0-31.0 pg] 27.8 pg (10/11/2013:30:00) MCHC [32.0-36.0 g/dL] 32.5 g/dL (10/11/2013:30:00) RDW [11.5-14.5 %] 12.3 % (10/11/2013:30:00) Platelet [133-450 K/CMM] 222 K/CMM (10/11/201330:00) MPV [7.4-10.4 fL] 7.9 fL (10/11/2013:30:00) Segs [45.0-75.0 %] 83.2 % *HI* (10/11/2013:30:00) Lymphocytes [20.0-40.0 %] 13.2 % *LOW* (10/11/201330:00) Monocytes [2.0-12.0 %] 2.8 % (10/11/2013:30:00) Eosinophils [0.0-4.0 %] 0.8 % (10/11/201330:00) Basophils [0.0-1.0 %] 0.0 % (10/11/2013:30:00) Segs-Bands # [1.5-8.1 K/CMM] 8.0 K/CMM (10/11/2013:30:00) Lymphocytes # [1.0-5.5 K/CMM] 1.3 K/CMM (10/11/2013 01:30:00) Monocytes # [0.0-0.8 K/CMM] 0.3 K/CMM (10/11/2013 01:30:00) Eosinophils # [0.0-0.5 K/CMM] 0.1 K/CMM (10/11/2013 01:30:00) Basophils # [0.0-0.2 K/CMM] 0.0 K/CMM (10/11/2013 01:30:00) RBC Morph Normal (10/11/2013 01:30:00) Plt Morph Normal (10/11/2013 01:30:00)
--- OUTSIDE RECORDS SUMMARY | 2018-10-15 11:30 | XMS REPORT | Summary of Care ---
Author Author [facility] Organization [facility] Address Unknown Phone Unavailable Encounter HQ Faustina(FIN) [id number] Date(s): 12/30/17 - 12/30/17 [facility] [address] [address]- [phone] Discharge Disposition: ED Registered In Error Attending Physician: Carl Madden MD Vital Signs No data available for [...] No data available for this section Results No data available for this section [...] 10; Number of years: 8; entered on: 12/30/17 Assessment and Plan No data available for this section
--- OUTSIDE RECORDS SUMMARY | 2018-10-15 11:31 | XMS REPORT | Summary of Care ---
Author Author [facility] Organization [facility] Address Unknown Phone Unavailable Encounter HQ Kathy_alla(FIN) [id number] Date(s): 12/03/17 - 12/03/17 [facility] [address] [place] [address] - [phone] Discharge Disposition: Home or Self Care Attending Physician: Puja Arguelles MD Referring Physician: Antonio Tello MD Vital Signs No data available for this section Problem List Condition Effective Dates Status Health Status Informant Anemia of chronic Active disease(Confirmed) Crohn's Active disease(Confirmed) Moderate Active Chronic ; [...] 10; Number of years: 8; entered on: 02/03/18 Assessment and Plan No data available for this section
--- OUTSIDE RECORDS SUMMARY | 2018-10-15 11:31 | XMS REPORT | Summary of Care ---
Author Author [facility] Organization [facility] Address Unknown Phone Unavailable Encounter HQ Faustina(FIN) [phone] Date(s): 02/03/18 - 02/05/18 [facility] [id number] [place] [address]- [phone] Encounter Diagnosis Peritoneal abscess (Final) - Discharge Disposition: Home or Self Care Attending Physician: Antonio Tello MD Admitting Physician: Antonio Tello MD Vital Signs 1 2 3 Most recent to oldest [Reference Range]: 152.4 cm (02/03/18 8:53 PM) Height 98.2 DegF (02/05/18 7:55 AM) 98.7 DegF (02/05/18 3:37 AM) 98.8 DegF (02/05/18 12:06 AM) Temperature Oral [96.4-99.1 DegF] 114/65 mmHg (02/05/18 7:55 AM) 108/61 mmHg (02/05/18 6:27 AM) 98/58 mmHg (02/05/18 3:37 AM) Blood Pressure [90-140/60-90 mmHg] 16 BRMIN (02/05/18 7:55 AM) 16 BRMIN (02/04/18 12:56 AM) 16 BRMIN (02/03/18 6:10 PM) Respiratory Rate [14-20 BRMIN] 81 bpm (02/05/18 7:55 AM) 102 bpm *HI* (02/05/18 6:27 AM) 94 bpm (02/05/18 12:06 AM) Peripheral Pulse Rate [60-100 bpm] 44.744 kg (02/04/18 8:59 PM) 43.636 kg (02/03/18 8:53 PM) Weight 18.79 m2 (02/03/18 8:53 PM) Body Mass Index Problem List Condition Effective Dates Status Health Status Informant Anemia of chronic Active disease(Confirmed) Crohn's Active disease(Confirmed) Moderate Active Chronic ; protein-calorie malnutrition(Confirm ed) Ulcerative Active colitis(Confirmed) UTI - Urinary tract Resolved infection(Confirmed) VRE(Confirmed)1, 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 Allergies, Adverse Reactions, Alerts Substance Reaction Severity Status morphine Active Zofran Active Surgical Tape1 Active 1use paper tape Medications Please update height, weight, allergies on profile Please update height, weight, allergies on profile, ATTN:RN, Drug form: MISC , Route: MISC, Q30Min, 02/03/18 20:00:00 CDT, Duration: 3 hr, Stop date: 8 22:30:00 CDT Start Date: 02/03/18 Stop Date: 02/03/18 Status: Deleted acetaminophen 650 mg, 2 tab, Route: PO, Drug form: TAB, Q6H, Dosing Weight 41.818, kg, PRN Fab n 1-3/Temp > 100.4 F, Start date: 02/03/18 11:13:00 CDT, Duration: 30 day, Stop date: 03/05/18 11:12:00 CDT Notes: Do not exceed 4 gm/day. (Same as: Tylenol) Start Date: 02/03/18 Stop Date: 02/05/18 Status: Discontinued acetaminophen-hydrocodone 325 mg-10 mg oral tablet 1 tab, Route: PO, Drug Form: TAB, Dosing Weight 43.636, kg, Q8H, PRN Pain Score 4-6, Start date: 02/03/18 23:18:00 CDT, Duration: 30 day, Stop date: 03/05/18 23 :17:00 CDT Notes: Do not exceed 4gm/day of acetaminophen. (Same as: Layton 325/10) Start Date: 02/03/18 Stop Date: 02/04/18 Status: Discontinued acetaminophen-hydrocodone 325 mg-5 mg oral tablet 1 tab, Route: PO, Drug Form: TAB, Dosing Weight 41.818, kg, Q6H, PRN Pain Score 4-6, Start date: 02/03/18 11:13:00 CDT, Duration: 30 day, Stop date: 03/05/18 11 :12:00 CDT Notes: (Same as: Layton 325/5) Do not exceed 4gm/day of acetaminophen. Start Date: 02/03/18 Stop Date: 02/03/18 Status: Discontinued ALPRAZOLam 1 mg oral tablet 1 mg, 1 tab, Route: PO, Drug form: TAB, TID, Dosing Weight 43.636, kg, PRN Anxie ty, Start date: 02/03/18 23:18:00 CDT, Duration: 30 day, Stop date: 03/05/18 23: 17:00 CDT Notes: With food or milk(Same as: Xanax) Start Date: 02/03/18 Stop Date: 02/05/18 Status: Discontinued apixaban 5 mg oral tablet See Instructions, Take 10 mg (2 tab) PO Q12H x 7 days, then 5 mg (1 tab) PO Q12H thereafter for treatment of pulmonary embolism * Cancel prior apixaban rx*, # 70 tab, 1 Refill(s), Pharmacy: [facility] [id number] Start Date: 02/05/18 Status: Ordered Dilaudid 1 mg, 1 mL, Route: IV, Drug form: SOLN, Q4H, Dosing Weight 43.636, kg, PRN Pain Score 7-10, Start date: 02/04/18 0:11:00 CDT, Duration: 30 day, Stop date: 03/06 0:10:00 CDT Notes: (Same as: Dilaudid) Start Date: 02/04/18 Stop Date: 02/05/18 Status: Discontinued Dilaudid 4 mg, 1 tab, Route: PO, Drug form: TAB, Q4H, Dosing Weight 43.636, kg, PRN Pain Score 7-10, Start date: 02/03/18 22:41:00 CDT, Duration: 30 day, Stop date: 02/06 05/25 22:40:00 CDT Notes: (Same as: Dilaudid) Start Date: 02/03/18 Stop Date: 02/04/18 Status: Discontinued docusate 100 mg, 1 cap, Route: PO, Drug form: CAP, BID, Dosing Weight 41.818, kg, PRN as needed for constipation, Start date: 02/03/18 11:13:00 CDT, Duration: 30 day, St op date: 03/05/18 11:12:00 CDT Notes: (Same as: Colace) (Do Not Crush) Start Date: 02/03/18 Stop Date: 02/05/18 Status: Discontinued Eliquis 2.5 mg, Route: PO, Drug form: TAB, ONCE, Dosing Weight 43.636, kg, Start date: 0 02/04/18 16:59:00 CDT, Stop date: 02/04/18 16:59:00 CDT Start Date: 02/04/18 Stop Date: 02/04/18 Status: Discontinued Eliquis 2.5 mg oral tablet 2.5 mg, PO, ONCE, 0 Refill(s) Start Date: 02/03/18 Stop Date: 02/05/18 Status: Discontinued Eliquis 5 mg oral tablet 5 mg, PO, Q12H, # 60 tab, 1 Refill(s), Pharmacy: [facility] [id number] Start Date: 02/05/18 Stop Date: 02/05/18 Status: Discontinued Eliquis 5 mg oral tablet 5 mg, PO, Q12H, # 60 tab, 0 Refill(s), Pharmacy: [facility] [id number] Start Date: 02/05/18 Stop Date: 02/05/18 Status: Discontinued heparin 5,000 unit, 1 mL, Route: SUB-Q, Drug form: INJ, Q8H, Dosing Weight 43.636, kg, S tart date: 02/04/18 0:00:00 CDT, Duration: 30 day, Stop date: 03/05/18 16:00:00 CDT Notes: porcine heparin Start Date: 02/04/18 Stop Date: 02/04/18 Status: Discontinued Heparin - one time bolus for DVT/PE 3,200 unit, 3.2 mL, Route: IVP, Drug form: INJ, ONCE, Dosing Weight 43.636, kg, Priority: STAT, Start date: 02/04/18 20:49:00 CDT, Stop date: 02/04/18 20:49:00 CDT Start Date: 02/04/18 Stop Date: 02/04/18 Status: Completed Heparin 40 unit/kg Bolus (Heparin Dosing Weight) Route: IVP, PRN, 1,800 unit, 1.8 mL, Drug form: INJ, PRN, Heparin Protocol, Star t date: 02/04/18 20:49:00 CDT Stop date: 03/06/18 20:48:00 CDT, 30 day Start Date: 02/04/18 Stop Date: 02/05/18 Status: Discontinued Heparin 80 unit/kg Bolus (Heparin Dosing Weight) Route: IVP, PRN, 3,600 unit, 3.6 mL, Drug form: INJ, PRN, Heparin Protocol, Star t date: 02/04/18 20:49:00 CDT Stop date: 03/06/18 20:48:00 CDT, 30 day Start Date: 02/04/18 Stop Date: 02/05/18 Status: Discontinued heparin additive 25,000 unit [18 unit/kg/hr] + Premix Diluent Dextrose 5% 500 mL 500 mL, Rate: 16.11 ml/hr, Infuse over: 31 hr, Route: IV, Dosing Weight 44.74 kg , Total Volume: 500 mL, Start date: 02/04/18 20:49:00 CDT, Duration: 30 day, Sto p date: 03/06/18 20:48:00 CDT, 1.39, m2 Start Date: 02/04/18 Stop Date: 02/05/18 Status: Discontinued linezolid 600 mg, 300 mL, Route: IVPB, Drug form: SOLN, [id number], Dosing Weight 43.636, kg, Start date: 02/04/18 0:00:00 CDT, Duration: 30 day, Stop date: 03/05/18 12:00:00 CDT, ABX Indication: Intra-abdominal Infection Notes: (Same as: Zyvox) MEDICATION WASTE Product Size: 600 mgProduct Wa sted: ___ mg Start Date: 02/04/18 Stop Date: 02/05/18 Status: Discontinued magnesium sulfate 1 gm, 100 mL, Route: IVPB, Drug form: INJ, ONCE, Dosing Weight 43.636, kg, Start date: 02/03/18 23:24:00 CDT, Stop date: 02/03/18 23:24:00 CDT Notes: WASTE: F/P - Sink; E - Municipal Trash Bin Start Date: 02/03/18 Stop Date: 02/04/18 Status: Completed meropenem + Sodium Chloride 0.9% IV 100 mL 500 mg, Route: IVPB, [id number], Dosing Weight 43.636, kg, CrCL >=50ml/min, Extended infusion, infuse over 3 hours, Start date: 02/04/18 0:00:00 CDT, Duration: 5 day, Stop date: 02/08/18 23:00:00 CDT, ABX Indication: Intra-abdominal Infection Notes: Same as Merrem MEDICATION WASTE Product Size: 500 mgProduct Wast ed: ___ mg Start Date: 02/04/18 Stop Date: 02/05/18 Status: Discontinued micafungin + Sodium Chloride 0.9% IV 100 mL 100 mg, Route: IV, [id number], Dosing Weight 43.636, kg, Start date: 02/04/18 13:00 :00 CDT, Duration: 10 day, Stop date: 02/13/18 13:00:00 CDT, ABX Indication: Int ra-abdominal Infection Notes: Same as MycamineProtect from light MEDICATION WASTE Product Size: 100 mgProduct Wasted: ___ mg Start Date: 02/04/18 Stop Date: 02/05/18 Status: Discontinued midodrine 2.5 mg, 0.5 tab, Route: PO, Drug form: TAB, BID, Dosing Weight 43.636, kg, Prior ity: NOW, Start date: 02/04/18 11:42:00 CDT, Duration: 30 day, Stop date: 9:00:00 CDT Notes: (Same as:Proamatine) Start Date: 02/04/18 Stop Date: 02/04/18 Status: Discontinued midodrine 5 mg, 1 tab, Route: PO, Drug form: TAB, Q8Hnow, Dosing Weight 43.636, kg, Start date: 02/04/18 20:00:00 CDT, Duration: 30 day, Stop date: 03/06/18 12:00:00 CDT Notes: (Same as:Proamatine) Start Date: 02/04/18 Stop Date: 02/05/18 Status: Discontinued NS 1,000 mL 1,000 mL, Rate: 75 ml/hr, Infuse over: 13.3 hr, Route: IV, Dosing Weight 43.636 kg, Total Volume: 1,000, Start date: 02/03/18 23:22:00 CDT, Duration: 24 hr, Sto p date: 02/04/18 23:21:00 CDT, 1.37, m2 Start Date: 02/03/18 Stop Date: 02/04/18 Status: Completed Omnipaque 300 100 ml, Route: IV, Drug Form: SOLN, Dosing Weight 43.636, kg, ONCE, Start date: 02/04/18 6:51:00 CDT, Stop date: 02/04/18 6:51:00 CDT Notes: (Same as:Omnipaque 300).WASTE: F/P - Black; E - Municipal Trash Bin Start Date: 02/04/18 Stop Date: 02/04/18 Status: Deleted Omnipaque 300 100 ml, Route: IV, Drug Form: SOLN, Dosing Weight 43.636, kg, ONCE, Start date: 02/04/18 8:03:00 CDT, Stop date: 02/04/18 8:03:00 CDT Notes: (Same as:Omnipaque 300).WASTE: F/P - Black; E - Municipal Trash Bin Start Date: 02/04/18 Stop Date: 02/04/18 Status: Completed Omnipaque 300 50 ml, Route: PO, Drug Form: SOLN, Dosing Weight 43.636, kg, ONCE, Start date: 0 02/04/18 8:03:00 CDT, Stop date: 02/04/18 8:03:00 CDT Notes: (Same as:Omnipaque 300).WASTE: F/P - Black; E - Municipal Trash Bin Start Date: 02/04/18 Stop Date: 02/04/18 Status: Completed oxyCODONE 5 mg oral tablet 10 mg, 2 tab, Route: PO, Drug form: TAB, Q8H, Dosing Weight 43.636, kg, PRN Pain Score 4-6, Start date: 02/04/18 9:35:00 CDT, Duration: 30 day, Stop date: 03/06 9:34:00 CDT Notes: (Same as: Roxicodone) Start Date: 02/04/18 Stop Date: 02/05/18 Status: Discontinued promethazine 25 mg, 1 tab, Route: PO, Drug form: TAB, Q8H, Dosing Weight 43.636, kg, PRN as n eeded for nausea/vomiting, Start date: 02/03/18 23:18:00 CDT, Duration: 30 day, Stop date: 03/05/18 23:17:00 CDT Notes: (Same as: Phenergan) Start Date: 02/03/18 Stop Date: 02/04/18 Status: Discontinued promethazine + Sodium Chloride 0.9% IV 50 mL 12.5 mg, 0.5 mL, Route: IVPB, Q6H, Dosing Weight 43.636, kg, PRN Nausea, Start d ate: 02/04/18 0:26:00 CDT, Duration: 30 day, Stop date: 03/06/18 0:25:00 CDT Notes: Do not give IV push. (Same as: Phenergan) Start Date: 02/04/18 Stop Date: 02/05/18 Status: Discontinued Protonix 40 mg, 1 tab, Route: PO, Drug form: ECTAB, Daily, Dosing Weight 43.636, kg, Star t date: 02/04/18 9:00:00 CDT, Duration: 30 day, Stop date: 03/05/18 9:00:00 CDT Notes: Tablet should not be chewed or crushed.(Same as: Protonix) Start Date: 02/04/18 Stop Date: 02/05/18 Status: Discontinued TPN - pts own med 1,850 mL TPN - pts own med, 1,850 mL, Drug form: MISC, Route: IV, 02/04/18 21:00:00 CDT, Duration: 15 hr, Stop date: 02/05/18 11:59:00 CDT Start Date: 02/04/18 Stop Date: 02/05/18 Status: Completed trazodone 50 mg, 1 tab, Route: PO, Drug form: TAB, Bedtime, Dosing Weight 43.636, kg, Star t date: 02/04/18 21:00:00 CDT, Duration: 30 day, Stop date: 03/05/18 21:00:00 CD T Notes: (Same As: Emilio) Start Date: 02/04/18 Stop Date: 02/05/18 Status: Discontinued Results ELECTROLYTES 1 2 3 Most recent to oldest [Reference Range]: 137 mEq/L (02/05/18 4:54 AM) 137 mEq/L (02/03/18 6:18 PM) Sodium Lvl [135-145 mEq/L] 3.8 mEq/L (02/05/18 4:54 AM) 4.1 mEq/L (02/03/18 6:18 PM) Potassium Lvl [3.5-5.1 mEq/L] 105 mEq/L (02/05/18 4:54 AM) 102 mEq/L (02/03/18 6:18 PM) Chloride Lvl [95-109 mEq/L] 27 mEq/L (02/05/18 4:54 AM) 30 mEq/L (02/03/18 6:18 PM) CO2 [24-32 mEq/L] 8.8 mEq/L *LOW* (02/05/18 4:54 AM) 9.1 mEq/L *LOW* (02/03/18 6:18 PM) AGAP [10.0-20.0 mEq/L] CHEM PANEL 1 2 3 Most recent to oldest [Reference Range]: 0.64 mg/dL (02/05/18 4:54 AM) 0.87 mg/dL (02/03/18 6:18 PM) Creatinine Lvl [0.50-1.40 mg/dL] 119 mL/min/1.73m2 1 *NA* (02/05/18 4:54 AM) 89 mL/min/1.73m2 2 *NA* (02/03/18 6:18 PM) eGFR 12 mg/dL (02/05/18 4:54 AM) 22 mg/dL (02/03/18 6:18 PM) BUN [7-22 mg/dL] 25 (02/03/18 6:18 PM) B/C Ratio [6-25] 128 mg/dL *HI* (02/05/18 4:54 AM) 83 mg/dL (02/03/18 6:18 PM) Glucose Lvl [70-99 mg/dL] 7.4 g/dL (02/03/18 6:18 PM) Total Protein [6.4-8.4 g/dL] 2.8 g/dL *LOW* (02/03/18 6:18 PM) Albumin Lvl [3.5-5.0 g/dL] 4.6 g/dL *HI* (02/03/18 6:18 PM) Globulin [2.7-4.2 g/dL] 0.6 *LOW* (02/03/18 6:18 PM) A/G Ratio [0.7-1.6] 8.2 mg/dL *LOW* (02/05/18 4:54 AM) 9.2 mg/dL (02/03/18 6:18 PM) Calcium Lvl [8.5-10.5 mg/dL] 3.5 mg/dL (02/05/18 4:54 AM) Phosphorus [2.5-4.5 mg/dL] 1.8 mg/dL (02/05/18 4:54 AM) 1.7 mg/dL *LOW* (02/03/18 6:18 PM) Magnesium Lvl [1.8-2.4 mg/dL] 98 unit/L *HI* (02/03/18 6:18 PM) ALT [0-65 unit/L] 88 unit/L *HI* (02/03/18 6:18 PM) AST [0-37 unit/L] 328 unit/L *HI* (02/03/18 6:18 PM) Alk Phos [39-136 unit/L] 0.6 mg/dL (02/03/18 6:18 PM) Bili Total [0.2-1.3 mg/dL] 1Result Comment: The eGFR is calculated using [...] be mul tiplied by the estimated BMI. 2Result Comment: The eGFR is calculated using the [...] tiplied by the estimated BMI. URINE CHEM 1 2 3 Most recent to oldest [Reference Range]: Negative (02/04/18 10:51 AM) U Preg [Negative] HEMATOLOGY 1 2 3 Most recent to oldest [Reference Range]: 12.3 K/CMM *HI* (02/05/18 4:54 AM) 16.5 K/CMM *HI* (02/04/18 9:04 PM) 12.6 K/CMM *HI* (02/03/18 6:18 PM) WBC [3.7-10.4 K/CMM] 2.91 M/CMM *LOW* (02/05/18 4:54 AM) 3.71 M/CMM *LOW* (02/04/18 9:04 PM) 3.61 M/CMM *LOW* (02/03/18 6:18 PM) RBC [4.20-5.40 M/CMM] 8.4 g/dL *LOW* (02/05/18 4:54 AM) 10.1 g/dL *LOW* (02/04/18 9:04 PM) 9.8 g/dL *LOW* (02/03/18 6:18 PM) Hgb [12.0-16.0 g/dL] 24.1 % *LOW* (02/05/18 4:54 AM) 30.6 % *LOW* (02/04/18 9:04 PM) 29.8 % *LOW* (02/03/18 6:18 PM) Hct [36.0-48.0 %] 82.9 fL (02/05/18 4:54 AM) 82.4 fL (02/04/18 9:04 PM) 82.6 fL (02/03/18 6:18 PM) MCV [80.0-98.0 fL] 28.8 pg (02/05/18 4:54 AM) 27.3 pg (02/04/18 9:04 PM) 27.2 pg (02/03/18 6:18 PM) MCH [27.0-31.0 pg] 34.7 g/dL (02/05/18 4:54 AM) 33.1 g/dL (02/04/18 9:04 PM) 33.0 g/dL (02/03/18 6:18 PM) MCHC [32.0-36.0 g/dL] 18.0 % *HI* (02/05/18 4:54 AM) 18.4 % *HI* (02/04/18 9:04 PM) 18.7 % *HI* (02/03/18 6:18 PM) RDW [11.5-14.5 %] 8.1 fL (02/05/18 4:54 AM) 8.0 fL (02/04/18 9:04 PM) 8.5 fL (02/03/18 6:18 PM) MPV [7.4-10.4 fL] 251 K/CMM (02/05/18 4:54 AM) 296 K/CMM (02/04/18 9:04 PM) 280 K/CMM (02/03/18 6:18 PM) Platelet [133-450 K/CMM] 70.1 % (02/05/18 4:54 AM) 80.5 % *HI* (02/04/18 9:04 PM) 70.0 % (02/03/18 6:18 PM) Segs [45.0-75.0 %] 15.7 % *LOW* (02/05/18 4:54 AM) 8.6 % *LOW* (02/04/18 9:04 PM) 16.7 % *LOW* (02/03/18 6:18 PM) Lymphocytes [20.0-40.0 %] 9.9 % (02/05/18 4:54 AM) 9.6 % (02/04/18 9:04 PM) 10.8 % (02/03/18 6:18 PM) Monocytes [2.0-12.0 %] 3.7 % (02/05/18 4:54 AM) 1.0 % (02/04/18 9:04 PM) 2.3 % (02/03/18 6:18 PM) Eosinophils [0.0-4.0 %] 0.6 % (02/05/18 4:54 AM) 0.3 % (02/04/18 9:04 PM) 0.2 % (02/03/18 6:18 PM) Basophils [0.0-1.0 %] 8.7 K/CMM *HI* (02/05/18 4:54 AM) 13.3 K/CMM *HI* (02/04/18 9:04 PM) 8.8 K/CMM *HI* (02/03/18 6:18 PM) Segs-Bands # [1.5-8.1 K/CMM] 1.9 K/CMM (02/05/18 4:54 AM) 1.4 K/CMM (02/04/18 9:04 PM) 2.1 K/CMM (02/03/18 6:18 PM) Lymphocytes # [1.0-5.5 K/CMM] 1.2 K/CMM *HI* (02/05/18 4:54 AM) 1.6 K/CMM *HI* (02/04/18 9:04 PM) 1.4 K/CMM *HI* (02/03/18 6:18 PM) Monocytes # [0.0-0.8 K/CMM] 0.5 K/CMM (02/05/18 4:54 AM) 0.2 K/CMM (02/04/18 9:04 PM) 0.3 K/CMM (02/03/18 6:18 PM) Eosinophils # [0.0-0.5 K/CMM] 0.1 K/CMM (02/05/18 4:54 AM) 0.1 K/CMM (02/04/18 9:04 PM) Basophils # [0.0-0.2 K/CMM] 14.7 seconds (02/04/18 9:04 PM) PT [12.0-14.7 seconds] 1.15 (02/04/18 9:04 PM) INR [0.85-1.17] 54.1 seconds *HI* (02/05/18 4:54 AM) 38.4 seconds *HI* (02/04/18 9:04 PM) PTT [22.9-35.8 seconds] Immunizations No data available for this section [...] 8; entered on: 02/03/18 Assessment and Plan Extracted from: Title: Discharge Summary * Author: Antonio Tello MD Date: 02/05/18 Discharge Information Disposition to home Condition stable Medications: See med reconciliation form Diet: Heart healthy Discharge Plan In the event of any worsening symptom patient was to come back to the ED for further evaluation Discharge summary to greater than 35 minutes Follow-up: Follow-up with hematology in 1 week 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 Discussed with the attending and the nursing staff No n/v, no fever, less abdominal pain. She want to go home. She has abdomen and pelvis Ctscan which reveals the followings: IMPRESSION: 1. Right lower lobe segmental pulmonary [...] small size. Nonemergent renal ultrasound is advised. Objective: Vitals and Temp: VitalsTmp(F)[id number] 02/05 07:[id number]--- 02/05 06:27----[id number]/61-------- 02/05 03:3798.7---98/58-------- 02/05 02:09-------97/60-------- 02/05 00:[id number]/58--94--- 24 Hr Tmax: 100.0F (37.78c) at 02/04 15:47Vital Signs are the last 5 in the past 48 hours. Physical exam: General Appearance: Well appearing, well developed, well nourished, well hydrated. Head: Normocephalic atraumatic Abdomen: soft, + RLQ tenderness, non-distended, no HSM, and no mass. There is mild drainage from the right lower quadrant skin opening. Musculoskeletal: No obvious deformity. Extremities: Symmetric, no obvious defect, and no cyanosis/clubbing/edema. Skin: No nevus no lesions no rash. No jaundice. Assessment Patient is 32 years old female with recurrent abdominal abscess, complicated Crohn 's disease with EC fistula, who presented with abdominal pain, fever, she was found to have pulmonary embolism in spite of anticoagulation in addition to 6 x 1.5 cm abdominal fluid collection which determined to be small to drain by interventional radiology. Patient currently on IV antibiotics, TPN, anticoagulation. Patient received 1 dose of biologic treatment as an outpatient. She was due for the second dose today. She would like to go home today. Plan: N.p.o. except meds IV antibiotics as per ID recommendation Pain control as per management patient need to follow-up with the gastroenterology as an outpatient to continue biologic treatment to help closure of the enterocutaneous fistula and to prevent the progression of the disease. Discussed with GI,ID and Dr Tello Labs (Last four charted values) WBC H 12.3(FEB 05)H 16.5(FEBRUARY 04)H 12.6(FEBRUARY 03) Hgb L 8.4(FEB 05)L 10.1(FEBRUARY 04)L 9.8(FEBRUARY 03) Hct L 24.1(FEB 05)L 30.6(FEBRUARY 04)L 29.8(FEBRUARY 03) Plt 251(FEB 05)296(FEBRUARY 04)280(FEBRUARY 03) Na 137(FEB 05)137(FEBRUARY 03) K 3.8(FEB 05)4.1(FEBRUARY 03) CO2 27(FEB 05)30(FEBRUARY 03) Cl 105(FEB 05)102(FEBRUARY 03) Cr 0.64(FEB 05)0.87(FEBRUARY 03) BUN 12(FEB 05)22(FEBRUARY 03) Glucose Random H 128(FEB 05)83(FEBRUARY 03) Mg 1.8(FEB 05)L 1.7(FEBRUARY 03) Phos 3.5(FEB 05) Ca L 8.2(FEB 05)9.2(FEBRUARY 03) PT 14.7(FEBRUARY 04) INR 1.15(FEBRUARY 04) PTT H 54.1(FEB 05)H 38.4(FEBRUARY 04) Medication List Active Medications Ordered acetaminophen: 650 mg, 2 tab, PO, Q6H, PRN: Pain 1-3/Temp > 100.4 F. ALPRAZOLam: 1 mg, 1 tab, PO, TID, PRN: Anxiety. docusate: 100 mg, 1 cap, PO, BID, PRN: as needed for constipation. heparin: 3,600 unit, 3.6 mL, IVP, PRN, PRN: Heparin Protocol. heparin: 1,800 unit, 1.8 mL, IVP, PRN, PRN: Heparin Protocol. heparin 25,000 unit [18 unit/kg/hr] + Premix Diluent Dextrose 5% 500 mL: 16.11 ml/hr, IV, Stop: 03/06/18 20:48:00 CDT. hydromorphone: 1 mg, 1 mL, IV, Q4H, PRN: Pain Score 7-10. linezolid: 600 mg, 300 mL, 150 ml/hr, IVPB, [id number]. meropenem + Sodium Chloride 0.9% IV 100 mL: 500 mg, 33.33 ml/hr, IVPB, [id number]. micafungin + Sodium Chloride 0.9% IV 100 mL: 100 mg, 100 ml/hr, IV, [id number]. midodrine: 5 mg, 1 tab, PO, Q8Hnow. oxyCODONE: 10 mg, 2 tab, PO, Q8H, PRN: Pain Score 4-6. pantoprazole: 40 mg, 1 tab, PO, Daily. promethazine + Sodium Chloride 0.9% IV 50 mL: 12.5 mg, 0.5 mL, 151.5 ml/hr, IVPB, Q6H, PRN: Nausea. trazodone: 50 mg, 1 tab, PO, Bedtime. Prescribed apixaban: 5 mg, PO, Q12H, for 30 day, 60 tab, 1 Refill(s). mirtazapine: 15 mg, PO, Bedtime, for 30 day, 30 tab, 0 Refill(s). Documented acetaminophen-hydrocodone: 1 tab, PO, Q8H, for 10 day, PRN: Pain, 30 tab, 0 Refill(s). ALPRAZOLam: 1 mg, 1 tab, PO, TID, for 14 day, PRN: Anxiety, 0 Refill(s). celecoxib: 100 mg, 1 cap, PO, BID, PRN: Pain Score 1-5, 0 Refill(s). hyoscyamine: 0.125 mg, 1 tab, PO, QID, PRN: spasm, 40 tab, 0 Refill(s). linezolid: 600 mg, 300 mL, IVPB, [id number], 0 Refill(s). pantoprazole: 40 mg, 1 tab, PO, Daily, 30 tab, 1 Refill(s). promethazine: 25 mg, 1 tab, PO, Q8H, for 10 day, PRN: Nausea/Vomiting, 30 tab, 0 Refill(s). trazodone: 50 mg, 1 tab, PO, Bedtime, 30 tab, 1 Refill(s). zolpidem: 5 mg, 1 tab, PO, Bedtime, for 14 day, PRN: Sleep, 0 Refill(s). Medications Inactivated in the Last 72 Hours acetaminophen-hydrocodone: 1 tab, PO, Q6H, PRN: Pain Score 4-6. acetaminophen-hydrocodone: 1 tab, PO, Q8H, PRN: Pain Score 4-6. apixaban: 2.5 mg, 1 tab, PO, Q12H, 0 Refill(s). apixaban: 2.5 mg, PO, ONCE, 0 Refill(s). apixaban: 2.5 mg, PO, ONCE. apixaban: 5 mg, PO, Q12H, for 30 day, 60 tab, 0 Refill(s). cefepime: 1 gm, IV, Q8H, 100 vial, 0 Refill(s). heparin: 5,000 unit, 1 mL, SUB-Q, Q8H. heparin: 3,200 unit, 3.2 mL, IVP, ONCE. hydromorphone: 2 mg, 1 tab, PO, Q4H, PRN: Pain Score 7-10, 0 Refill(s). hydromorphone: 4 mg, 1 tab, PO, Q4H, PRN: Pain Score 7-10. iohexol: 100 ml, IV, ONCE. iohexol: 50 ml, PO, ONCE. iohexol: 100 ml, IV, ONCE. magnesium sulfate: 1 gm, 100 mL, 100 ml/hr, IVPB, ONCE. meropenem: 500 mg, PYXIS, ONCE. meropenem: 500 mg, PYXIS, ONCE. meropenem: 500 mg, PYXIS, ONCE. meropenem: 500 mg, PYXIS, ONCE. meropenem: 500 mg, PYXIS, ONCE. meropenem: 500 mg, PYXIS, ONCE. metroNIDAZOLE: 500 mg, 100 mL, IVPB, ABXQ8H, 0 Refill(s). micafungin: 100 mg, IV, Q24H, 30 vial, 0 Refill(s). midodrine: 2.5 mg, 0.5 tab, PO, BID. non-formulary: ATTN:RNJOHN, Q30Min. non-formulary 1,850 mL: See Outpatient Rx Label, IV, Stop: 02/05/18 11:59:00 CDT. promethazine: 25 mg, 1 tab, PO, Q8H, PRN: as needed for nausea/vomiting. promethazine: 25 mg, 1 mL, PYXIS, ONCE. promethazine: 25 mg, 1 mL, PYXIS, ONCE. Sodium Chloride 0.9% IV: 100 mL, PYXIS, ONCE. Sodium Chloride 0.9% IV: 50 mL, PYXIS, ONCE. Sodium Chloride 0.9% IV: 100 mL, PYXIS, ONCE. Sodium Chloride 0.9% IV: 50 mL, PYXIS, ONCE. Sodium Chloride 0.9% IV: 100 mL, PYXIS, ONCE. Sodium Chloride 0.9% IV: 100 mL, PYXIS, ONCE. Sodium Chloride 0.9% IV: 100 mL, PYXIS, ONCE. Sodium Chloride 0.9% IV: 100 mL, PYXIS, ONCE. Sodium Chloride 0.9% IV 1,000 mL: 75 ml/hr, IV, Stop: 02/04/18 23:21:00 CDT. tizanidine: 4 mg, 1 tab, PO, Q8H, PRN: as needed for muscle spasm, 0 Refill(s). Extracted from: Title: HO Consult Author: Sanjay Wang MD Date: 02/04/18 Hematology Oncology Consult Note: CONSULTING PHYSICIAN: Dr. Tello REASON FOR CONSULTATION: Acute PE CHIEF COMPLAINT: I had abdominal pain HISTORY OF PRESENT ILLNESS: This is a 32 years old female with past medical history of Crohn's disease, portal vein thrombosis, who has been was recently hospitalized with intra-abdominal abscess requiring drainage and antibiotics, currently presents with a recurrence of abdominal infection. During the workup, patient had CT abdomen/pelvis done, which showed right lower lobe segmental pulmonary embolus, partly seen with right lower lobe subpleural density consistent with possible pulmonary infarct versus pneumonia. Also noted abscess of the right iliac is muscle, measuring 6.8 x 1.8 cm, which communicates with more anterior collection with subcutaneous fistulization. Patient is currently on meropenem and linezolid with infectious disease following. Other consultants include GI and colorectal surgery, pain management. Hematology was consulted for evaluation and management of acute PE. Patient had hypercoagulable workup done on previous admission, which include Antithrombin III, factor V Leiden, prothrombin mutation, lupus anticoagulant panel, cardiolipin antibody, beta-2 glycoprotein antibody, protein C and protein S, all of which were negative. In the hospital, patient was taking Eliquis 2.5 mg every 12 hours. However, her outpatient prescription medication states that she needs to take Eliquis 5 mg daily. Patient says that she was adherent to the instructions and has not been skipping her medications. PAST MEDICAL HISTORY: UTI - Urinary tract infection Active Problems (5) Anemia of chronic disease Crohn's disease Moderate protein-calorie malnutrition Ulcerative colitis VRE PAST SURGICAL HISTORY: Creation of ileostomy Total colectomy Insertion of Port-a-cath Drainage of abscess SOCIAL HISTORY: Alcohol Details: Never Tobacco Details: Use: Current every day smoker. Type: Cigarettes. 10 per day. 8 year(s). Ready to change: No. Household tobacco concerns: No. Tobacco smoke exposure: None. Did the Patient Smoke Cigarettes Anytime During the Last 365 Days? Yes. Cessation Counseling Provided? Yes. FAMILY HISTORY: No qualifying data available ALLERGIES: Allergies: Surgical Tape, Zofran, morphine Home Medications No qualifying data available Inpatient Medications: Medications (19) Active Scheduled Meds (6): 02/04/18 linezolid 600 mg IVPB [id number] 150 ml/hr 02/04/18 meropenem + Sodium Chloride 0.9% IV 100 mL 500 mg IVPB [id number] 33.33 ml/hr 02/04/18 micafungin + Sodium Chloride 0.9% IV 100 mL 100 mg IV [id number] 100 ml/hr 02/04/18 midodrine 5 mg PO Q8Hnow 02/04/18 pantoprazole (Protonix) 40 mg PO Daily 02/04/18 trazodone 50 mg PO Bedtime Unscheduled Meds: None PRN Meds (6): 02/03/18 ALPRAZOLam (ALPRAZOLam 1 mg oral tablet) 1 mg PO TID 02/03/18 acetaminophen 650 mg PO Q6H 02/03/18 docusate 100 mg PO BID 02/04/18 hydromorphone (Dilaudid) 1 mg IV Q4H 02/04/18 oxyCODONE (oxyCODONE 5 mg oral tablet) 10 mg PO Q8H 02/04/18 promethazine + Sodium Chloride 0.9% IV 50 mL 12.5 mg IVPB Q6H 151.5 ml/hr One Time Meds (5): 02/04/18 (Discontinued) apixaban (Eliquis) 2.5 mg PO ONCE 02/04/18 (Deleted) iohexol (Omnipaque 300) 100 ml IV ONCE 02/04/18 (not done) iohexol (Omnipaque 300) 50 ml PO ONCE 02/04/18 (not done) iohexol (Omnipaque 300) 100 ml IV ONCE 02/03/18 (Completed) magnesium sulfate 1 gm IVPB ONCE 100 ml/hr Continuous Infusions (2): 02/03/18 Sodium Chloride 0.9% IV 1,000 mL (NS 1,000 mL) 1,000 mL 75 ml/hr 02/04/18 non-formulary 1,850 mL (TPN - pts own med 1,850 mL) 1,850 mL See Outpatient Rx Label REVIEW OF SYSTEMS: 12 point review of systems was performed and is negative except for what is mentioned in HPI PHYSICAL EXAMINATION: VitalsTmp(F)[id number] 02/04 15:[id number]/53--99--- 02/04 09:59----06418/57-------- 02/04 09:3599.8 02/04 07:75643.252715/50--98--- 02/04 00:5698.15435/[id number]--- 24 Hr Tmax: 102.5F (39.17c) at 02/04 07:35Vital Signs are the last 5 in the past 48 hours. Gen: NAD, AAOx3 HEENT: PERRL, EOMI, MMM Heart: RRR, S1, s2, no M/R/G Lungs: CTAB, no W/R/R Abd: soft, NT/ND, +BS, no HSM, noted abdominal fistula opening with drainage : no suprapubic tenderness Extrem: no pitting edema noted DATA: Labs reviewed, noted Hct: 29.8 % Low (02/03/18 18:32:09) Hgb: 9.8 g/dL Low (02/03/18 18:32:09) MCH: 27.2 pg (02/03/18 18:32:09) MCHC: 33 g/dL (02/03/18 18:32:09) MCV: 82.6 fL (02/03/18 18:32:09) MPV: 8.5 fL (02/03/18 18:32:09) Platelet: 280 K/CMM (02/03/18 18:32:09) RBC: 3.61 M/CMM Low (02/03/18 18:32:09) RDW: 18.7 % High (02/03/18 18:32:09) WBC: 12.6 K/CMM High (02/03/18 18:32:09) AGAP: 9.1 mEq/L Low (02/03/18 18:50:21) Chloride Lvl: 102 mEq/L (02/03/18 18:50:21) CO2: 30 mEq/L (02/03/18 18:50:21) Potassium Lvl: 4.1 mEq/L (02/03/18 18:50:21) Sodium Lvl: 137 mEq/L (02/03/18 18:50:21) A/G Ratio: 0.6 Low (02/03/18 18:50:21) Albumin Lvl: 2.8 g/dL Low (02/03/18 18:50:21) Alk Phos: 328 unit/L High (02/03/18 18:50:21) ALT: 98 unit/L High (02/03/18 18:50:21) AST: 88 unit/L High (02/03/18 18:50:21) B/C Ratio: 25 (02/03/18 18:50:21) Bili Total: 0.6 mg/dL (02/03/18 18:50:21) BUN: 22 mg/dL (02/03/18 18:50:21) Calcium Lvl: 9.2 mg/dL (02/03/18 18:50:21) Creatinine Lvl: 0.87 mg/dL (02/03/18 18:50:21) eGFR: 89 mL/min/1.73m2 (02/03/18 18:50:23) Globulin: 4.6 g/dL High (02/03/18 18:50:21) Glucose Lvl: 83 mg/dL (02/03/18 18:50:21) Total Protein: 7.4 g/dL (02/03/18 18:50:21) Imaging reviewed, noted Imaging Studies (last 36 hours) Abdomen/Pelvis w/wo IV contrast CT 02/04/2018 16:28 Impression: 1. Right lower lobe segmental pulmonary embolus [...] size. Nonemergent renal ultrasound is advised. SL: [id number] ASSESSMENT AND PLAN: PE, acute Patient was underdosed with her Eliquis. She was taking 5 mg daily for medicine that supposed to be given twice a day, due to short half life We will place patient on heparin drip while she is in the hospital pending any possible surgical interventions Once patient is ready to be discharged, recommend sending home on Eliquis 5 mg every 12 hours. Anemia , Normocytic Likely secondary to chronic disease Ferritin was checked recently and was 268 (January 01, 2018). 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
--- OUTSIDE RECORDS SUMMARY | 2018-10-15 11:31 | XMS REPORT | Summary of Care ---
Author Author [facility] Organization [facility] Address Unknown Phone Unavailable Encounter HQ Faustina(BERNARDO) [id number] Date(s): 12/30/17 - 01/04/18 [facility] [address] [place] [address]- [phone] Encounter Diagnosis Peritonitis, unspecified (Final) - Sepsis, unspecified organism (Final) - 01/08/18 Peritoneal abscess (Final) - Portal vein thrombosis (Final) - Crohn's disease, unspecified, without complications (Final) - Moderate protein-calorie malnutrition (Final) - Body mass index (BMI) 19.9 or less, adult (Final) - Cellulitis of abdominal wall (Final) - Anemia in other chronic diseases classified elsewhere (Final) - Nicotine dependence, cigarettes, uncomplicated (Final) - Chronic pain syndrome (Final) - Adjustment disorder with mixed anxiety and depressed mood (Final) - Discharge Disposition: Home Care with Home Health Attending Physician: Antonio Tello MD Admitting Physician: Antonio Tello MD Vital Signs 1 2 3 Most recent to oldest [Reference Range]: 152.4 cm (12/31/17 3:05 PM) 152.4 cm (12/30/17 12:34 PM) Height 98.0 DegF (01/04/18 7:58 AM) 98.8 DegF (01/03/18 11:59 PM) 99.9 DegF *HI* (01/03/18 4:43 PM) Temperature Oral [96.4-99.1 DegF] 94/58 mmHg (01/04/18 7:58 AM) 145/85 mmHg *HI* (01/03/18 11:59 PM) 131/74 mmHg (01/03/18 4:43 PM) Blood Pressure [90-140/60-90 mmHg] 14 BRMIN (01/04/18 7:58 AM) 16 BRMIN (01/03/18 11:59 PM) 16 BRMIN (01/03/18 4:43 PM) Respiratory Rate [14-20 BRMIN] 99 bpm (01/04/18 7:58 AM) 82 bpm (01/03/18 11:59 PM) 102 bpm *HI* (01/03/18 4:43 PM) Peripheral Pulse Rate [60-100 bpm] 41.818 kg (12/31/17 3:05 PM) 42.273 kg (12/30/17 12:34 PM) Weight 18.01 m2 (12/31/17 3:05 PM) 18.2 m2 (12/30/17 12:34 PM) Body Mass Index Problem List Condition [...] Surgical Tape1 Active 1use paper tape Medications acetaminophen 650 mg, 2 tab, Route: PO, Drug form: TAB, Q6H, Dosing Weight 42.364, kg, PRN Fab n 1-3/Temp > 100.4 F, Start date: 12/30/17 10:55:00 CDT, Duration: 30 day, Stop date: 01/29/18 10:54:00 CDT Notes: Do not exceed 4 gm/day. (Same as: Tylenol) Start Date: 12/30/17 Stop Date: 01/04/18 Status: Discontinued acetaminophen-hydrocodone 325 mg-5 mg oral tablet 1 tab, Route: PO, Drug Form: TAB, Dosing Weight 42.364, kg, Q6H, PRN Pain Score 4-6, Start date: 12/30/17 10:55:00 CDT, Duration: 30 day, Stop date: 01/29/18 10 :54:00 CDT Notes: (Same as: [place] 325/5) Do not exceed 4gm/day of acetaminophen. Start Date: 12/30/17 Stop Date: 12/31/17 Status: Discontinued apixaban 2.5 mg, 1 tab, Route: PO, Drug form: TAB, Q12H, Dosing Weight 41.818, kg, Start date: 12/31/17 23:00:00 CDT, Duration: 30 day, Stop date: 01/30/18 11:00:00 CDT Notes: Same as: Eliquis Start Date: 12/31/17 Stop Date: 01/04/18 Status: Discontinued Dilaudid 1 mg, Route: IVP, Q3H, Dosing Weight 42.273, kg, PRN Pain Score 7-10, Start date : 12/30/17 15:01:00 CDT, Duration: 30 day, Stop date: 01/29/18 15:00:00 CDT Start Date: 12/30/17 Stop Date: 12/30/17 Status: Deleted Dilaudid 0.2 mg, 0.2 mL, Route: IVP, Drug form: INJ, Q4H, Dosing Weight 42.273, kg, PRN P ain Score 4-6, Start date: 12/30/17 13:44:00 CDT, Stop date: 01/29/18 13:43:00 C DT Notes: Same as: Dilaudid Start Date: 12/30/17 Stop Date: 12/30/17 Status: Discontinued Dilaudid 0.2 mg, 0.2 mL, Route: IVP, Drug form: INJ, Q4H, Dosing Weight 42.273, kg, PRN P ain Score 4-6, Start date: 12/30/17 23:14:00 CDT, Stop date: 01/29/18 23:13:00 C DT Notes: Same as: Dilaudid Start Date: 12/30/17 Stop Date: 12/31/17 Status: Discontinued Dilaudid 4 mg, 2 tab, Route: PO, Drug form: TAB, Q4H, PRN Pain Score 7-10, Start date: 15:51:00 CDT, Duration: 30 day, Stop date: 01/29/18 15:50:00 CDT Notes: (Same as: Dilaudid) Start Date: 12/30/17 Stop Date: 12/30/17 Status: Discontinued docusate 100 mg, 1 cap, Route: PO, Drug form: CAP, BID, Dosing Weight 42.364, kg, PRN as needed for constipation, Start date: 12/30/17 10:55:00 CDT, Duration: 30 day, St op date: 01/29/18 10:54:00 CDT Notes: (Same as: Colace) (Do Not Crush) Start Date: 12/30/17 Stop Date: 01/04/18 Status: Discontinued fat emulsion, intravenous 250 mL IV, 31.25 ml/hr, Start date: 01/04/18 22:00:00 CDT, Duration: 8, 250 ml, 41.818 Notes: (Same as: Intralipid, Liposyn)Infuse through a 1.2 micron filter Start Date: 01/04/18 Stop Date: 01/04/18 Status: Canceled fat emulsion, intravenous 250 mL IV, 31.25 ml/hr, Start date: 12/30/17 22:00:00 CDT, Duration: 8, 250 ml, 42.273 Notes: (Same as: Intralipid, Liposyn)Infuse through a 1.2 micron filter Start Date: 12/30/17 Stop Date: 12/31/17 Status: Completed fat emulsion, intravenous 250 mL IV, 31.25 ml/hr, Start date: 01/01/18 22:00:00 CDT, Duration: 8, 250 ml, 41.818 Notes: (Same as: Intralipid, Liposyn)Infuse through a 1.2 micron filter Start Date: 01/01/18 Stop Date: 01/02/18 Status: Completed hydromorphone 1 mg, 1 mL, Route: IVP, Drug form: SOLN, Q3H, PRN Pain Score 7-10, Start date: 0 12/30/17 15:58:00 CDT, Duration: 30 day, Stop date: 01/29/18 15:57:00 CDT Notes: (Same as: Dilaudid) Start Date: 12/30/17 Stop Date: 01/04/18 Status: Discontinued linezolid 600 mg, 300 mL, Route: IVPB, Drug form: SOLN, [id number], Dosing Weight 42.273, kg, Start date: 12/30/17 19:00:00 CDT, Duration: 30 day, Stop date: 01/29/18 11:00: 00 CDT, ABX Indication: Intra-abdominal Infection Notes: (Same as: Zyvox) Start Date: 12/30/17 Stop Date: 01/04/18 Status: Discontinued Lovenox 40 mg, 0.4 mL, Route: SUB-Q, Drug form: INJ, [id number], Dosing Weight 42.273, kg, For CrCl <30mL/min, Start date: 12/30/17 21:00:00 CDT, Duration: 30 day, Stop date: 01/28/18 21:00:00 CDT Notes: (Same as: Lovenox) Start Date: 12/30/17 Stop Date: 12/31/17 Status: Discontinued magnesium sulfate 2gm / NS 50ml (premixed) 2 gm, 50 mL, Route: IVPB, Drug form: INJ, ONCE, Dosing Weight 41.818, kg, Start date: 12/31/17 18:52:00 CDT, Stop date: 12/31/17 18:52:00 CDT Notes: WASTE: F/P - Sink; E - Municipal Trash Bin Start Date: 12/31/17 Stop Date: 12/31/17 Status: Completed meropenem + Sodium Chloride 0.9% IV 100 mL 500 mg, Route: IVPB, [id number], Dosing Weight 42.364, kg, CrCL >=50ml/min, Extended infusion, infuse over 3 hours, Start date: 12/30/17 13:00:00 CDT, Duration: 3 day, Stop date: 01/02/18 6:30:00 CDT, ABX Indication: Intra-abdominal Infection Notes: Same as Merrem MEDICATION WASTE Product Size: 500 mgProduct Wast ed: ___ mg Start Date: 12/30/17 Stop Date: 12/30/17 Status: Discontinued meropenem + Sodium Chloride 0.9% IV 100 mL 500 mg, Route: IVPB, [id number], Dosing Weight 42.364, kg, CrCL >=50ml/min, Extended infusion, infuse over 3 hours, Start date: 12/30/17 23:00:00 CDT, Duration: 3 day, Stop date: 01/02/18 17:00:00 CDT, ABX Indication: Intra-abdominal Infection Notes: Same as Merrem MEDICATION WASTE Product Size: 500 mgProduct Wast ed: ___ mg Start Date: 12/30/17 Stop Date: 01/02/18 Status: Completed micafungin + Sodium Chloride 0.9% IV 100 mL 100 mg, Route: IVPB, [id number], Dosing Weight 42.273, kg, Start date: 12/30/17 19: 00:00 CDT, Duration: 30 day, Stop date: 01/28/18 19:00:00 CDT, ABX Indication: I ntra-abdominal Infection Notes: Same as MycamineProtect from light MEDICATION WASTE Product Size: 100 mgProduct Wasted: ___ mg Start Date: 12/30/17 Stop Date: 01/04/18 Status: Discontinued normal saline 0.9% IV 1,000 mL 1,000 mL, Rate: 75 ml/hr, Infuse over: 13.3 hr, Route: IV, Dosing Weight 42.273 kg, Total Volume: 1,000, Start date: 12/30/17 18:03:00 CDT, Duration: 30 day, St op date: 01/29/18 18:02:00 CDT, 1.35, m2 Start Date: 12/30/17 Stop Date: 01/04/18 Status: Discontinued Omnipaque 300 100 ml, Route: IV, Drug Form: SOLN, Dosing Weight 42.273, kg, ONCE, Start date: 12/30/17 16:19:00 CDT, Stop date: 12/30/17 16:19:00 CDT Notes: (Same as:Omnipaque 300).WASTE: F/P - Black; E - Municipal Trash Bin Start Date: 12/30/17 Stop Date: 01/02/18 Status: Completed oxyCODONE 5 mg oral tablet 5 mg, 1 tab, Route: PO, Drug form: TAB, Q6H, Dosing Weight 42.273, kg, PRN Pain Score 4-6, Start date: 12/31/17 9:47:00 CDT, Duration: 30 day, Stop date: 9:46:00 CDT Notes: (Same as: Roxicodone) Start Date: 12/31/17 Stop Date: 01/01/18 Status: Discontinued oxyCODONE 5 mg oral tablet 5 mg, 1 tab, Route: PO, Drug form: TAB, Q4H, Dosing Weight 42.273, kg, PRN Pain Score 4-6, Start date: 01/01/18 9:05:00 CDT, Duration: 30 day, Stop date: 9:04:00 CDT Notes: (Same as: Roxicodone) Start Date: 01/01/18 Stop Date: 01/04/18 Status: Discontinued parenteral nutrition solution 1,550 mL 1,550 mL, Rate: 62.5 ml/hr, Infuse over: 24.8 hr, Route: IV, Dosing Weight 42.27 3 kg, Total Volume: 1,550, Start date: 12/30/17 22:00:00 CDT, Duration: 1 day, S top date: 12/31/17 21:59:00 CDT, 1.35, m2 Start Date: 12/30/17 Stop Date: 12/31/17 Status: Completed parenteral nutrition solution 1,550 mL 1,550 mL, Rate: 62.5 ml/hr, Infuse over: 24.8 hr, Route: IV, Dosing Weight 41.81 8 kg, Total Volume: 1,550, Start date: 01/01/18 22:00:00 CDT, Duration: 1 day, S top date: 01/02/18 21:59:00 CDT, 1.34, m2 Start Date: 01/01/18 Stop Date: 01/02/18 Status: Completed parenteral nutrition solution 1,550 mL 1,550 mL, Rate: 62.5 ml/hr, Infuse over: 24.8 hr, Route: IV, Dosing Weight 41.81 8 kg, Total Volume: 1,550, Start date: 01/04/18 22:00:00 CDT, Duration: 1 day, S top date: 01/05/18 21:59:00 CDT, 1.34, m2 Start Date: 01/04/18 Stop Date: 01/04/18 Status: Canceled parenteral nutrition solution 1,550 mL 1,550 mL, Rate: 62.5 ml/hr, Infuse over: 24.8 hr, Route: IV, Dosing Weight 41.81 8 kg, Total Volume: 1,550, Start date: 01/02/18 22:00:00 CDT, Duration: 1 day, S top date: 01/03/18 21:59:00 CDT, 1.34, m2 Start Date: 01/02/18 Stop Date: 01/03/18 Status: Completed parenteral nutrition solution 1,550 mL 1,550 mL, Rate: 62.5 ml/hr, Infuse over: 24.8 hr, Route: IV, Dosing Weight 41.81 8 kg, Total Volume: 1,550, Start date: 01/03/18 22:00:00 CDT, Duration: 1 day, S top date: 01/04/18 21:59:00 CDT, 1.34, m2 Start Date: 01/03/18 Stop Date: 01/04/18 Status: Discontinued parenteral nutrition solution 1550 mL 1,550 mL, Rate: 62.5 ml/hr, Infuse over: 24.8 hr, Route: IV, Dosing Weight 42.27 3 kg, Total Volume: 1,550, Start date: 12/31/17 22:00:00 CDT, Duration: 1 day, S top date: 01/31/18 21:59:00 CDT, 1.35, m2 Start Date: 12/31/17 Stop Date: 01/02/18 Status: Discontinued Phenergan + Sodium Chloride 0.9% IV 50 mL 25 mg, 1 mL, Route: IVPB, Q6H, Dosing Weight 42.364, kg, PRN Nausea & Vomiting, Start date: 12/30/17 10:56:00 CDT, Duration: 30 day, Stop date: 01/29/18 10:55:00 CDT Notes: Do not give IV push. (Same as: Phenergan) Start Date: 12/30/17 Stop Date: 01/04/18 Status: Discontinued Protonix 40 mg, 1 tab, Route: PO, Drug form: ECTAB, Daily, Dosing Weight 41.818, kg, Star t date: 01/01/18 9:00:00 CDT, Duration: 30 day, Stop date: 01/30/18 9:00:00 CDT Notes: Tablet should not be chewed or crushed.(Same as: Protonix) Start Date: 01/01/18 Stop Date: 01/04/18 Status: Discontinued Remeron 15 mg, 1 tab, Route: PO, Drug form: TAB, Bedtime, Dosing Weight 41.818, kg, Star t date: 01/04/18 21:00:00 CDT, Duration: 30 day, Stop date: 02/02/18 21:00:00 CD T Notes: (Same as:Remeron) Start Date: 01/04/18 Stop Date: 01/04/18 Status: Canceled Remeron 15 mg oral tablet 15 mg, PO, Bedtime, # 30 tab, 0 Refill(s) Start Date: 01/04/18 Stop Date: 02/03/18 Status: Ordered Sodium Chloride 0.9% (Bolus) IV 1,000 mL, 1,000 ml/hr, Infuse Over: 1 hr, Route: IV, 1,000, Drug form: INJ, ONCE , Priority: STAT, Dosing Weight 42.273 kg, Start date: 12/30/17 16:11:00 CDT, St op date: 12/30/17 16:11:00 CDT Start Date: 12/30/17 Stop Date: 12/30/17 Status: Completed Sodium Chloride 0.9% (titrate) 250 mL 250 mL, Rate: To prime line and flush remaining blood products., Dosing Weight 4 1.818, kg, Route: IV, Total Volume: 250, Priority: Routine, Start Date: 01/01/18 9:51:00 CDT, Duration: 30 day, Stop date: 01/31/18 9:50:00 CDT, Replace Every: 24 hr Start Date: 01/01/18 Stop Date: 01/04/18 Status: Discontinued tizanidine 4 mg, 1 tab, Route: PO, Drug form: TAB, Q8H, Dosing Weight 42.273, kg, PRN as ne eded for muscle spasm, Start date: 12/31/17 10:04:00 CDT, Duration: 30 day, Stop date: 01/30/18 10:03:00 CDT Notes: (Same As: Zanaflex) Start Date: 12/31/17 Stop Date: 01/04/18 Status: Discontinued trazodone 50 mg oral tablet 50 mg, 1 tab, Route: PO, Drug form: TAB, Bedtime, Dosing Weight 41.818, kg, PRN Insomnia, Start date: 12/31/17 18:53:00 CDT, Duration: 30 day, Stop date: 18:52:00 CDT Notes: (Same As: Ikeryrel) Start Date: 12/31/17 Stop Date: 01/04/18 Status: Discontinued vancomycin + Dextrose 5% in Water IV 250 mL 1,000 mg, Route: IVPB, [id number], Dosing Weight 42.364, kg, Start date: 12/30/17 1 3:00:00 CDT, Stop date: 01/01/18 18:00:00 CDT, ABX Indication: Intra-abdominal I nfection Notes: TIME CRITICAL MEDICATION(Same As: Vancocin)Infusion rate< 1000 mg: infuse over 1 [id number] - 1500 mg: infuse over 1.5 [id number] - 2000 mg: infuse over 2 hours> 2001 mg: infuse over 2.5 hoursFor adult patients only: Round to nearest 250 mg per Medical Staff approval MEDICATION WASTE Product Size: 1000 mgProduct Wasted: _750__ mg Start Date: 12/30/17 Stop Date: 12/30/17 Status: Discontinued Results BLOOD BANK RESULTS 1 2 3 Most recent to oldest [Reference Range]: O POS *Unknown* (01/01/18 12:06 PM) ABO/Rh Negative (01/01/18 12:06 PM) Antibody Scrn Product available 1 (01/01/18 9:51 AM) RBC product 1Result Comment: 01/01/2018 13:26 [id number] Spoke to Hilario Parks 01/01/2018 13:26 [place] ELECTROLYTES 1 2 3 Most recent to oldest [Reference Range]: 139 mEq/L (01/04/18 5:52 AM) 137 mEq/L (01/03/18 4:46 AM) 139 mEq/L (01/02/18 12:08 PM) Sodium Lvl [135-145 mEq/L] 4.6 mEq/L (01/04/18 5:52 AM) 3.9 mEq/L (01/03/18 4:46 AM) 4.0 mEq/L (01/02/18 12:08 PM) Potassium Lvl [3.5-5.1 mEq/L] 100 mEq/L (01/04/18 5:52 AM) 105 mEq/L (01/03/18 4:46 AM) 102 mEq/L (01/02/18 12:08 PM) Chloride Lvl [95-109 mEq/L] 27 mEq/L (01/04/18 5:52 AM) 25 mEq/L (01/03/18 4:46 AM) 28 mEq/L (01/02/18 12:08 PM) CO2 [24-32 mEq/L] 16.6 mEq/L (01/04/18 5:52 AM) 10.9 mEq/L (01/03/18 4:46 AM) 13.0 mEq/L (01/02/18 12:08 PM) AGAP [10.0-20.0 mEq/L] CHEM PANEL 1 2 3 Most recent to oldest [Reference Range]: 0.58 mg/dL (01/04/18 5:52 AM) 0.45 mg/dL *LOW* (01/03/18 4:46 AM) 0.56 mg/dL (01/02/18 12:08 PM) Creatinine Lvl [0.50-1.40 mg/dL] 123 mL/min/1.73m2 1 *NA* (01/04/18 5:52 AM) 134 mL/min/1.73m2 2 *NA* (01/03/18 4:46 AM) 124 mL/min/1.73m2 3 *NA* (01/02/18 12:08 PM) eGFR 14 mg/dL (01/04/18 5:52 AM) 11 mg/dL (01/03/18 4:46 AM) 11 mg/dL (01/02/18 12:08 PM) BUN [7-22 mg/dL] 11 (12/30/17 1:06 PM) B/C Ratio [6-25] 113 mg/dL *HI* (01/04/18 5:52 AM) 119 mg/dL *HI* (01/03/18 4:46 AM) 100 mg/dL *HI* (01/02/18 12:08 PM) Glucose Lvl [70-99 mg/dL] 7.0 g/dL (12/30/17 1:06 PM) Total Protein [6.4-8.4 g/dL] 3.0 g/dL *LOW* (12/30/17 1:06 PM) Albumin Lvl [3.5-5.0 g/dL] 4.0 g/dL (12/30/17 1:06 PM) Globulin [2.7-4.2 g/dL] 0.8 (12/30/17 1:06 PM) A/G Ratio [0.7-1.6] 8.9 mg/dL (01/04/18 5:52 AM) 8.5 mg/dL (01/03/18 4:46 AM) 8.3 mg/dL *LOW* (01/02/18 12:08 PM) Calcium Lvl [8.5-10.5 mg/dL] 4.4 mg/dL (01/04/18 5:52 AM) 3.9 mg/dL (01/03/18 4:46 AM) 3.4 mg/dL (01/02/18 12:08 PM) Phosphorus [2.5-4.5 mg/dL] 1.9 mg/dL (01/04/18 5:52 AM) 1.9 mg/dL (01/03/18 4:46 AM) 1.8 mg/dL (01/02/18 12:08 PM) Magnesium Lvl [1.8-2.4 mg/dL] 34 unit/L (12/30/17 1:06 PM) ALT [0-65 unit/L] 15 unit/L (12/30/17 1:06 PM) AST [0-37 unit/L] 266 unit/L *HI* (12/30/17 1:06 PM) Alk Phos [39-136 unit/L] 109 unit/L (01/01/18 7:08 AM) LDH [98-192 unit/L] 0.5 mg/dL (12/30/17 1:06 PM) Bili Total [0.2-1.3 mg/dL] 1Result Comment: [...] be mul tiplied by the estimated BMI. 3Result Comment: The eGFR is calculated using the [...] be mul tiplied by the estimated BMI. LIPIDS 1 2 3 Most recent to oldest [Reference Range]: 176 mg/dL *HI* (12/31/17 5:43 AM) Trig [<=149 mg/dL] ANEMIA STUDY 1 2 3 Most recent to oldest [Reference Range]: 27 ug/dl *LOW* (01/01/18 7:08 AM) Iron [30-160 ug/dl] 268 ng/mL *HI* (01/01/18 7:08 AM) Ferritin Lvl [5-204 ng/mL] 21 % (01/01/18 7:08 AM) % Satur Fe [12-57 %] 103 ug/dl *LOW* (01/01/18 7:08 AM) UIBC [110-370 ug/dl] 847 pg/mL (01/01/18 7:08 AM) Vitamin B12 Lvl [254-1320 pg/mL] 14.6 ng/mL (01/01/18 7:08 AM) Folate Lvl [>=3.0 ng/mL] 130 ug/dl *LOW* (01/01/18 7:08 AM) TIBC [228-428 ug/dl] ENDOCRINOLOGY 1 2 3 Most recent to oldest [Reference Range]: Negative *NA* (12/30/17 1:06 PM) S Preg [Negative] IMMUNOLOGY 1 2 3 Most recent to oldest [Reference Range]: 10.0 mg/dL *LOW* (12/31/17 5:43 AM) Prealbumin [18.0-45.0 mg/dL] HEMATOLOGY 1 2 3 Most recent to oldest [Reference Range]: 14.8 K/CMM *HI* (01/04/18 5:52 AM) 12.4 K/CMM *HI* (01/03/18 4:46 AM) 14.2 K/CMM *HI* (01/02/18 12:08 PM) WBC [3.7-10.4 K/CMM] 4.20 M/CMM (01/04/18 5:52 AM) 3.75 M/CMM *LOW* (01/03/18 4:46 AM) 3.97 M/CMM *LOW* (01/02/18 12:08 PM) RBC [4.20-5.40 M/CMM] 11.4 g/dL *LOW* (01/04/18 5:52 AM) 10.3 g/dL *LOW* (01/03/18 4:46 AM) 10.8 g/dL *LOW* (01/02/18 12:08 PM) Hgb [12.0-16.0 g/dL] 34.5 % *LOW* (01/04/18 5:52 AM) 31.1 % *LOW* (01/03/18 4:46 AM) 32.7 % *LOW* (01/02/18 12:08 PM) Hct [36.0-48.0 %] 82.2 fL (01/04/18 5:52 AM) 82.9 fL (01/03/18 4:46 AM) 82.2 fL (01/02/18 12:08 PM) MCV [80.0-98.0 fL] 27.1 pg (01/04/18 5:52 AM) 27.4 pg (01/03/18 4:46 AM) 27.2 pg (01/02/18 12:08 PM) MCH [27.0-31.0 pg] 33.0 g/dL (01/04/18 5:52 AM) 33.0 g/dL (01/03/18 4:46 AM) 33.1 g/dL (01/02/18 12:08 PM) MCHC [32.0-36.0 g/dL] 18.5 % *HI* (01/04/18 5:52 AM) 18.6 % *HI* (01/03/18 4:46 AM) 18.4 % *HI* (01/02/18 12:08 PM) RDW [11.5-14.5 %] 7.0 fL *LOW* (01/04/18 5:52 AM) 7.5 fL (01/03/18 4:46 AM) 7.3 fL *LOW* (01/02/18 12:08 PM) MPV [7.4-10.4 fL] 281 K/CMM (01/04/18 5:52 AM) 245 K/CMM (01/03/18 4:46 AM) 217 K/CMM (01/02/18 12:08 PM) Platelet [133-450 K/CMM] 83.6 % *HI* (12/30/17 1:06 PM) Segs [45.0-75.0 %] 5.7 % *LOW* (12/30/17 1:06 PM) Lymphocytes [20.0-40.0 %] 10.1 % (12/30/17 1:06 PM) Monocytes [2.0-12.0 %] 0.3 % (12/30/17 1:06 PM) Eosinophils [0.0-4.0 %] 0.3 % (12/30/17 1:06 PM) Basophils [0.0-1.0 %] 18.3 K/CMM *HI* (12/30/17 1:06 PM) Segs-Bands # [1.5-8.1 K/CMM] 1.2 K/CMM (12/30/17 1:06 PM) Lymphocytes # [1.0-5.5 K/CMM] 2.2 K/CMM *HI* (12/30/17 1:06 PM) Monocytes # [0.0-0.8 K/CMM] 0.1 K/CMM (12/30/17 1:06 PM) Eosinophils # [0.0-0.5 K/CMM] 0.1 K/CMM (12/30/17 1:06 PM) Basophils # [0.0-0.2 K/CMM] 2.0 % *HI* (12/31/17 8:16 PM) Retic Auto [0.5-1.5 %] Immunizations No data available for this section [...] 8; entered on: 12/30/17 Assessment and Plan Extracted from: Title: Discharge Summary * Author: Antonio Tello MD Date: 01/04/18 Discharge Information Disposition to home with home health Condition: Stable Medications: See med reconciliation form Diet: IV TPN Discharge Plan In the event of any worsening symptoms patient advised to come back to the ED for further evaluation Discharge summary to greater than 35 minutes Extracted from: Title: Clinical Document Author: Lonnie Thompson MD Date: 01/04/18 Pt seen, report dictated, Adjsutment disorder with anxiety and depression Start remeron 15 mg po bedtime OK to d/c from psychiatric stand point thank you for the consult Extracted from: Title: General Admission H&P * Author: Antonio Tello MD Date: 12/30/17 Impression and Plan 1. Sepsis due to underlying intra-abdominal abscess IV Merrem, Zyvox and micafungin, ID following, cultures collected, CT abdomen IV contrast: Pending, interventional radiology consulted for drainage of the abscess 2. History of Crohn's disease with frequent fistula GI and colorectal surgery consulted, following 3. History of portal vein thromboses hematology consulted, anticoagulation 4. Anemia of chronic disease hematology following 5. Chronic pain syndrome IV pain meds, pain management consulted 6. Prophylaxis Lovenox 7. Fluid electrolytes nutrients n.p.o., TPN 8. Disposition inpatient, colorectal surgery, GI, ID, hematology and pain management consulted
--- OUTSIDE RECORDS SUMMARY | 2018-10-15 11:31 | XMS REPORT | Summary of Care ---
Author Author [facility] Organization [facility] Address Unknown Phone Unavailable Encounter HQ Faustina(FIN) [id number] Date(s): 12/30/17 - 01/04/18 [facility] [address] [place] [address]- Encounter Diagnosis Peritonitis, unspecified (Final) - Discharge Disposition: Home or Self [...] 01/29/18 10 :54:00 CDT Notes: (Same as: [place] 325/5) Do not exceed 4gm/day of acetaminophen. [...] 300 mL, Route: IVPB, Drug form: SOLN, [id number], Dosing Weight 42.273, kg, Start date: 12/30/17 19:00:00 CDT, Duration: 30 day, Stop date: 01/29/18 11:00: 00 CDT, ABX Indication: Intra-abdominal Infection Notes: (Same as: Zyvox) Start Date: 12/30/17 Stop Date: 01/04/18 Status: Discontinued Lovenox 40 mg, 0.4 mL, Route: SUB-Q, Drug form: INJ, [id number], Dosing Weight 42.273, kg, For CrCl <30mL/min, [...] IV 100 mL 100 mg, Route: IVPB, [id number], Dosing Weight 42.273, kg, Start date: 12/30/17 [...] Stop date: 18:52:00 CDT Notes: (Same As: Desyrel) Start Date: 12/31/17 Stop Date: 01/04/18 Status: Discontinued vancomycin + Dextrose 5% in Water IV 250 mL 1,000 mg, Route: IVPB, [id number], Dosing Weight 42.364, kg, Start date: 12/30/17 1 3:00:00 CDT, Stop date: 01/01/18 18:00:00 CDT, ABX Indication: Intra-abdominal I nfection Notes: TIME CRITICAL MEDICATION(Same As: Vancocin)Infusion rate< 1000 mg: infuse over 1 [id number] - 1500 mg: infuse over 1.5 [id number] - 2000 mg: infuse over 2 hours> [...] AM) RBC product 1Result Comment: 01/01/2018 13:26 [id number] Spoke to Hilario Parks 01/01/2018 13:26 HOBSON [...]
--- OUTSIDE RECORDS SUMMARY | 2018-10-15 11:31 | XMS REPORT | Summary of Care ---
Author Author [facility] Organization [facility] Address Unknown Phone Unavailable Encounter HQ Faustina(BERNARDO) [id number] Date(s): 11/24/17 - 12/09/17 [facility] [id number] [place] [address]- Encounter Diagnosis Sepsis, unspecified organism (Final) - 12/17/17 Portal vein thrombosis (Final) - Unspecified severe protein-calorie malnutrition (Final) - Peritoneal abscess (Final) - Crohn's disease of small intestine with fistula (Final) - Pouchitis (Final) - Crohn's disease of small intestine with abscess (Final) - Body mass index (BMI) 19.9 or less, adult (Final) - Nicotine dependence, cigarettes, uncomplicated (Final) - Chronic pain syndrome (Final) - Major depressive disorder, single episode, unspecified (Final) - Anemia, unspecified (Final) - Enterococcus as the cause of diseases classified elsewhere (Final) - 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 (Final) - Acquired absence of other specified parts of digestive tract (Final) - Ileostomy status (Final) - 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 Care Attending Physician: Antonio Tello MD Admitting Physician: Antonio Tello MD Vital Signs 1 2 3 Most recent to oldest [Reference Range]: 152.4 cm (11/24/17 5:25 PM) Height 99 DegF (12/09/17 7:50 PM) 98.5 DegF (12/09/17 3:10 PM) 98.5 DegF (12/09/17 10:58 AM) Temperature Oral [96.4-99.1 DegF] 109/74 mmHg (12/09/17 7:50 PM) 115/73 mmHg (12/09/17 3:10 PM) 111/65 mmHg (12/09/17 10:58 AM) Blood Pressure [90-140/60-90 mmHg] 18 BRMIN (12/09/17 7:50 PM) 16 BRMIN (12/09/17 3:10 PM) 16 BRMIN (12/09/17 10:58 AM) Respiratory Rate [14-20 BRMIN] 99 bpm (12/09/17 7:50 PM) 75 bpm (12/09/17 3:10 PM) 77 bpm (12/09/17 10:58 AM) Peripheral Pulse Rate [60-100 bpm] 42.318 kg (11/26/17 6:02 AM) 42.33 kg (11/24/17 5:25 PM) Weight 18.23 m2 (11/24/17 5:25 PM) Body Mass Index Problem List Condition [...] weight, allergies on profile, ATTN:BORIS, Drug form: MISC , Route: MISC, Q30Min, 11/24/17 17:30:00 CDT, Duration: 30 day, Stop date: 12/24 17:00:00 CDT Start Date: 11/24/17 Stop Date: 11/24/17 Status: Deleted acetaminophen 650 mg, 2 tab, Route: PO, Drug form: TAB, Q6H, Dosing Weight 42.33, kg, PRN Pain 1-3/Temp > 100.4 F, Start date: 11/24/17 17:49:00 CDT, Duration: 30 day, Stop date: 12/24/17 17:48:00 CDT Notes: Do not exceed 4 gm/day. (Same as: Tylenol) Start Date: 11/24/17 Stop Date: 12/09/17 Status: Discontinued acetaminophen-hydrocodone 325 mg-10 mg oral tablet 1 tab, Route: PO, Drug Form: TAB, Dosing Weight 42.33, kg, Q8H, PRN Pain Score 1 -5, Start date: 11/24/17 19:50:00 CDT, Duration: 30 day, Stop date: 12/24/17 19: 49:00 CDT Notes: Do not exceed 4gm/day of acetaminophen. (Same as: [place] 325/10) Start Date: 11/24/17 Stop Date: 11/25/17 Status: Discontinued acetaminophen-hydrocodone 325 mg-10 mg oral tablet 1 tab, PO, Q8H, PRN Pain, # 30 tab, 0 Refill(s) Start Date: 11/24/17 Stop Date: 12/04/17 Status: Ordered acetaminophen-hydrocodone 325 mg-5 mg oral tablet 1 tab, Route: PO, Drug Form: TAB, Dosing Weight 42.33, kg, Q6H, PRN Pain Score 4 -6, Start date: 11/24/17 17:49:00 CDT, Duration: 30 day, Stop date: 12/24/17 17: 48:00 CDT Notes: (Same as: [place] 325/5) Do not exceed 4gm/day of acetaminophen. Start Date: 11/24/17 Stop Date: 11/24/17 Status: Discontinued ALPRAZOLam 1 mg oral tablet 1 mg, 1 tab, Route: PO, Drug form: TAB, TID, Dosing Weight 42.33, kg, PRN Anxiet y, Start date: 11/24/17 19:50:00 CDT, Duration: 30 day, Stop date: 12/24/17 19:4 9:00 CDT Notes: With food or milk(Same as: Xanax) Start Date: 11/24/17 Stop Date: 12/09/17 Status: Discontinued ALPRAZOLam 1 mg oral tablet 1 mg=1 tab, PO, TID, PRN Anxiety, 0 Refill(s) Start Date: 11/24/17 Stop Date: 12/08/17 Status: Ordered apixaban 2.5 mg oral tablet 2.5 mg=1 tab, PO, Q12H, 0 Refill(s) Start Date: 12/09/17 Stop Date: 02/03/18 Status: Completed cefepime + Sodium Chloride 0.9% IV 100 mL 1 gm, Route: IVPB, [id number], Dosing Weight 42.318, kg, (CrCl >/=50 ml/min), Start date: 12/09/17 0:00:00 CDT, Duration: 30 day, Stop date: 01/07/18 16:00:00 CDT, ABX Indication: Intra-abdominal Infection Notes: (Same As: Maxipime) MEDICATION WASTE Product Size: 1000 mgProduc t Wasted: ___ mg Start Date: 12/09/17 Stop Date: 12/09/17 Status: Discontinued cefepime 1 g injection 1 gm, IV, Q8H, # 100 vial, 0 Refill(s), given to patient Start Date: 12/09/17 Stop Date: 02/03/18 Status: Completed celecoxib 100 mg, 1 cap, Route: PO, Drug form: CAP, BID, Dosing Weight 42.33, kg, PRN Pain Score 1-5, Start date: 11/24/17 19:50:00 CDT, Duration: 30 day, Stop date: 12/06 05/25 19:49:00 CDT Notes: NSAID. Please check indication. Not for seizure. (Same As: CeleBREX) Start Date: 11/24/17 Stop Date: 11/25/17 Status: Discontinued celecoxib 100 mg oral capsule 100 mg=1 cap, PO, BID, PRN Pain Score 1-5, 0 Refill(s) Start Date: 11/24/17 Status: Ordered DAPTOmycin + Sodium Chloride 0.9% IV 100 mL 250 mg, Route: IVPB, [id number], Dosing Weight 42.318, kg, Start date: 11/26/17 18: 00:00 CDT, Duration: 30 day, Stop date: 12/26/17 4:00:00 CDT, ABX Indication: In tra-abdominal Infection Notes: (Same As: Vijaya)Restricted use to Infectious Disease Physicians.For sara lt patients only: Round to nearest 50 mg per Medical Staff approval MEDICAT ION WASTE Product Size: 500 mgProduct Wasted: _250_ mg Start Date: 11/26/17 Stop Date: 12/08/17 Status: Discontinued DAPTOmycin + Sodium Chloride 0.9% IV 50 mL 150 mg, Route: IVP, Daily, Dosing Weight 40.909, kg, Start date: 11/24/17 18:00: 00 CDT, Duration: 14 day, Stop date: 12/07/17 18:00:00 CDT, ABX Indication: Bact eremia Notes: (Same As: Cubicin)Restricted use to Infectious Disease Physicians.For sara lt patients only: Round to nearest 50 mg per Medical Staff approval MEDICAT ION WASTE Product Size: 500 mgProduct Wasted: ___ mg Start Date: 11/24/17 Stop Date: 11/26/17 Status: Discontinued Dilaudid 0.5 mg, 0.5 mL, Route: IVP, Drug form: SOLN, Q3H, Dosing Weight 42.318, kg, PRN Pain Score 7-10, Start date: 12/05/17 11:45:00 CDT, Duration: 30 day, Stop date: 01/04/18 11:44:00 CDT Notes: (Same as: Dilaudid) Start Date: 12/05/17 Stop Date: 12/06/17 Status: Discontinued Dilaudid 2 mg, 1 tab, Route: PO, Drug form: TAB, Q4H, Dosing Weight 42.318, kg, PRN Pain Score 7-10, Start date: 12/06/17 10:58:00 CDT, Duration: 30 day, Stop date: 09/24 10:57:00 CDT Notes: (Same as: Dilaudid) Start Date: 12/06/17 Stop Date: 12/09/17 Status: Discontinued docusate 100 mg, 1 cap, Route: PO, Drug form: CAP, BID, Dosing Weight 42.33, kg, PRN as n eeded for constipation, Start date: 11/24/17 17:49:00 CDT, Duration: 30 day, Sto p date: 12/24/17 17:48:00 CDT Notes: (Same as: Colace) (Do Not Crush) Start Date: 11/24/17 Stop Date: 12/09/17 Status: Discontinued Eliquis 2.5 mg, 1 tab, Route: PO, Drug form: TAB, Q12H, Dosing Weight 42.318, kg, Start date: 12/09/17 21:00:00 CDT, Duration: 30 day, Stop date: 01/08/18 9:00:00 CDT Notes: Same as: Eliquis Start Date: 12/09/17 Stop Date: 12/09/17 Status: Discontinued fat emulsion, intravenous 250 mL IVPB, 31.25 ml/hr, Start date: 11/30/17 22:00:00 CDT, Duration: 8, 250 ml, 42.31 8 Notes: (Same as: Intralipid, Liposyn)Infuse through a 1.2 micron filter Start Date: 11/30/17 Stop Date: 12/01/17 Status: Completed fat emulsion, intravenous 250 mL IV, 31.25 ml/hr, Start date: 11/27/17 22:00:00 CDT, Duration: 8, 250 ml, 42.318 Start Date: 11/27/17 Stop Date: 11/28/17 Status: Completed fat emulsion, intravenous 250 mL IV, 31.25 ml/hr, Start date: 12/07/17 22:00:00 CDT, Duration: 8, 250 ml, 42.318 Notes: (Same as: Intralipid, Liposyn) Start Date: 12/07/17 Stop Date: 12/08/17 Status: Completed fat emulsion, intravenous 250 mL IV, 31.25 ml/hr, Start date: 11/25/17 22:00:00 CDT, Duration: 8, 250 ml, 42.33 Notes: (Same as: Intralipid, Liposyn) Start Date: 11/25/17 Stop Date: 11/26/17 Status: Completed fat emulsion, intravenous 250 mL IV, 31.25 ml/hr, Start date: 12/02/17 22:00:00 CDT, Duration: 8, 250 ml, 42.318 Notes: (Same as: Intralipid, Liposyn)Infuse through a 1.2 micron filter Start Date: 12/02/17 Stop Date: 12/03/17 Status: Completed fat emulsion, intravenous 250 mL IV, 31.25 ml/hr, Start date: 12/04/17 22:00:00 CDT, Duration: 8, 250 ml, 42.318 Notes: (Same as: Intralipid, Liposyn)Infuse through a 1.2 micron filter Start Date: 12/04/17 Stop Date: 12/05/17 Status: Completed fat emulsion, intravenous 250 mL IV, 31.25 ml/hr, Start date: 12/09/17 22:00:00 CDT, Duration: 8, 250 ml, 42.318 Notes: (Same as: Intralipid, Liposyn) Start Date: 12/09/17 Stop Date: 12/09/17 Status: Canceled Flagyl 500 mg, 100 mL, Route: IVPB, Drug form: INJ, ABXQ8H, Dosing Weight 42.318, kg, S tart date: 12/08/17 18:00:00 CDT, Duration: 30 day, Stop date: 01/07/18 10:00:00 CDT, ABX Indication: Intra-abdominal Infection Notes: (Same as: Flagyl) Avoid alcohol. Start Date: 12/08/17 Stop Date: 12/09/17 Status: Discontinued hydromorphone 2 mg oral tablet 2 mg=1 tab, PO, Q4H, PRN Pain Score 7-10, 0 Refill(s) Start Date: 12/09/17 Stop Date: 02/03/18 Status: Completed hyoscyamine 0.125 mg, 1 tab, Route: PO, Drug form: TAB, QID, Dosing Weight 42.33, kg, PRN Sp asm, Start date: 11/24/17 19:50:00 CDT, Duration: 30 day, Stop date: 12/24/17 19 :49:00 CDT Notes: (Same as: Levsin) Take 30 min before meal Start Date: 11/24/17 Stop Date: 12/09/17 Status: Discontinued hyoscyamine 0.125 mg oral tablet 0.125 mg=1 tab, PO, QID, PRN spasm, # 40 tab, 0 Refill(s) Start Date: 11/24/17 Status: Ordered lidocaine 1% 5 mL, Route: INTRADERM, Drug Form: INJ, Dosing Weight 42.318, kg, ONCALL, Start date: 12/03/17 13:00:00 CDT, Duration: 30 day, Stop date: 01/02/18 12:59:00 CDT Notes: Preservative free. (Same as: Xylocaine MPF) Start Date: 12/03/17 Stop Date: 12/03/17 Status: Discontinued linezolid 600 mg, 300 mL, Route: IVPB, Drug form: SOLN, [id number], Dosing Weight 42.318, kg, Start date: 12/08/17 17:00:00 CDT, Duration: 30 day, Stop date: 01/07/18 8:00:00 CDT, ABX Indication: Intra-abdominal Infection Notes: (Same as: Zyvox) Start Date: 12/08/17 Stop Date: 12/09/17 Status: Discontinued linezolid 600 ys=785 mL, IVPB, [id number], 0 Refill(s) Start Date: 12/09/17 Status: Ordered Lovenox 40 mg, 0.4 mL, Route: SUB-Q, Drug form: INJ, [id number], Dosing Weight 42.33, kg, Start date: 11/24/17 20:00:00 CDT, Duration: 30 day, Stop date: 12/23/17 20:00:0 0 CDT Notes: (Same as: Lovenox) Start Date: 11/24/17 Stop Date: 12/08/17 Status: Voided With Results magnesium sulfate 2 gm, 50 mL, Route: IVPB, Drug form: INJ, ONCE, Start date: 11/26/17 15:00:00 CD T, Stop date: 11/26/17 15:00:00 CDT Notes: WASTE: F/P - Sink; E - Municipal Trash Bin Start Date: 11/26/17 Stop Date: 11/26/17 Status: Completed meropenem + Sodium Chloride 0.9% IV 100 mL 500 mg, Route: IVPB, [id number], Dosing Weight 40.909, kg, CrCL=30 -49 ml/min, Exten ded infusion, infuse over 3 hours, Start date: 11/27/17 20:00:00 CDT, Duration: 11 day, Stop date: 12/08/17 16:00:00 CDT, ABX Indication: ED - Suspected Sepsis Notes: Same as Merrem MEDICATION WASTE Product Size: 500 mgProduct Wast ed: __0_ mg Start Date: 11/27/17 Stop Date: 12/08/17 Status: Completed meropenem + Sodium Chloride 0.9% IV 100 mL 500 mg, Route: IVPB, [id number], Dosing Weight 40.909, kg, CrCL=30 -49 ml/min, Exten ded infusion, infuse over 3 hours, Start date: 11/24/17 18:00:00 CDT, Stop date : 12/08/17 10:00:00 CDT, ABX Indication: ED - Suspected Sepsis Notes: Same as Merrem MEDICATION WASTE Product Size: 500 mgProduct Wast ed: __0_ mg Start Date: 11/24/17 Stop Date: 11/27/17 Status: Discontinued metroNIDAZOLE intravenous solution 500 mf=055 mL, IVPB, ABXQ8H, 0 Refill(s) Start Date: 12/09/17 Stop Date: 02/03/18 Status: Completed micafungin + Sodium Chloride 0.9% IV 100 mL 100 mg, Route: IV, [id number], Dosing Weight 42.318, kg, Start date: 12/08/17 17:00 :00 CDT, Duration: 30 day, Stop date: 01/06/18 21:00:00 CDT, ABX Indication: Int ra-abdominal Infection Notes: Same as MycamineProtect from light MEDICATION WASTE Product Size: 100 mgProduct Wasted: ___ mg Start Date: 12/08/17 Stop Date: 12/09/17 Status: Discontinued micafungin 50 mg intravenous injection 100 mg, IV, Q24H, # 30 vial, 0 Refill(s), given to patient Start Date: 12/09/17 Stop Date: 02/03/18 Status: Completed midodrine 5 mg, Route: PO, Drug form: TAB, BID, Dosing Weight 42.33, kg, Start date: 11/25 9:00:00 CDT, Duration: 30 day, Stop date: 12/24/17 17:00:00 CDT Start Date: 11/25/17 Stop Date: 11/24/17 Status: Canceled midodrine 5 mg, 1 tab, Route: PO, Drug form: TAB, TID, Dosing Weight 42.33, kg, Start date : 11/25/17 9:00:00 CDT, Duration: 30 day, Stop date: 12/24/17 17:00:00 CDT Notes: (Same as:Proamatine) Start Date: 11/25/17 Stop Date: 12/08/17 Status: Discontinued midodrine 2.5 mg oral tablet 2.5 mg=1 tab, PO, BID, 0 Refill(s) Start Date: 11/24/17 Stop Date: 12/09/17 Status: Discontinued Motrin 600 mg, 1 tab, Route: PO, Drug form: TAB, Q6H, Dosing Weight 42.318, kg, PRN For Temp > 100.4 F, Start date: 11/26/17 16:51:00 CDT, Duration: 30 day, Stop date: 12/26/17 16:50:00 CDT Notes: (Same as: Motrin)"Do Not Crush" Take with food. Start Date: 11/26/17 Stop Date: 12/09/17 Status: Discontinued Mycamine + Sodium Chloride 0.9% IV 100 mL 100 mg, Route: IVPB, [id number], Dosing Weight 42.318, kg, Start date: 11/27/17 19: 00:00 CDT, Duration: 7 day, Stop date: 12/04/17 3:00:00 CDT, ABX Indication: Fev er of Unknown Source 0-60 days of age Notes: Same as MycamineProtect from light MEDICATION WASTE Product Size: 100 mgProduct Wasted: ___ mg Start Date: 11/27/17 Stop Date: 12/04/17 Status: Completed [place] 10/325 oral tablet 1 tab, Route: PO, Drug Form: TAB, Dosing Weight 42.318, kg, Q6H, PRN Pain Score 4-6, Start date: 12/06/17 11:09:00 CDT, Duration: 30 day, Stop date: 01/05/18 11 :08:00 CDT Notes: Do not exceed 4gm/day of acetaminophen. (Same as: [place] 325/10) Start Date: 12/06/17 Stop Date: 12/09/17 Status: Discontinued [place] 10/325 oral tablet 1 tab, Route: PO, Drug Form: TAB, Dosing Weight 42.318, kg, Q4H, PRN Pain Score 6-10, Start date: 11/27/17 10:24:00 CDT, Duration: 30 day, Stop date: 12/27/17 1 0:23:00 CDT Notes: Do not exceed 4gm/day of acetaminophen. (Same as: [place] 325/10) Start Date: 11/27/17 Stop Date: 12/06/17 Status: Discontinued NS (Bolus) IV 1,000 mL, 1,000 ml/hr, Infuse Over: 1 hr, Route: IV, 1,000, Drug form: INJ, ONCE , Priority: STAT, Dosing Weight 42.318 kg, Start date: 12/06/17 15:05:00 CDT, St op date: 12/06/17 15:05:00 CDT Start Date: 12/06/17 Stop Date: 12/06/17 Status: Completed NS 1,000 mL 1,000 mL, Rate: 100 ml/hr, Infuse over: 10 hr, Route: IV, Dosing Weight 42.33 kg , Total Volume: 1,000, Start date: 11/24/17 17:50:00 CDT, Duration: 30 day, Stop date: 12/24/17 17:49:00 CDT, 1.35, m2 Start Date: 11/24/17 Stop Date: 11/24/17 Status: Discontinued NS 1,000 mL 1,000 mL, Rate: 125 ml/hr, Infuse over: 8 hr, Route: IV, Dosing Weight 42.33 kg, Total Volume: 1,000, Start date: 11/24/17 19:56:00 CDT, Stop date: 11/25/17 20: 59:00 CDT, 1.35, m2 Start Date: 11/24/17 Stop Date: 11/25/17 Status: Discontinued Omnipaque 300 50 ml, Route: PO, Drug Form: SOLN, Dosing Weight 42.318, kg, ONCE, Start date: 0 12/03/17 12:40:00 CDT, Stop date: 12/03/17 12:40:00 CDT Notes: (Same as:Omnipaque 300).WASTE: F/P - Black; E - Municipal Trash Bin Start Date: 12/03/17 Stop Date: 12/07/17 Status: Completed Omnipaque 300 100 ml, Route: IV, Drug Form: SOLN, Dosing Weight 42.318, kg, ONCE, Start date: 12/08/17 12:54:00 CDT, Stop date: 12/08/17 12:54:00 CDT Notes: (Same as:Omnipaque 300).WASTE: F/P - Black; E - Municipal Trash Bin Start Date: 12/08/17 Stop Date: 12/13/17 Status: Discontinued Omnipaque 300 100 ml, Route: IV, Drug Form: SOLN, Dosing Weight 42.318, kg, ONCE, Start date: 12/03/17 12:40:00 CDT, Stop date: 12/03/17 12:40:00 CDT Notes: (Same as:Omnipaque 300).WASTE: F/P - Black; E - Municipal Trash Bin Start Date: 12/03/17 Stop Date: 12/07/17 Status: Completed Omnipaque 300 25 ml, Route: PO, Drug Form: SOLN, Dosing Weight 42.318, kg, ONCE, Start date: 0 12/08/17 12:54:00 CDT, Stop date: 12/08/17 12:54:00 CDT Notes: (Same as:Omnipaque 300).WASTE: F/P - Black; E - Municipal Trash Bin Start Date: 12/08/17 Stop Date: 12/13/17 Status: Discontinued ondansetron 4 mg, 2 mL, Route: IVP, Drug form: INJ, Q6H, Dosing Weight 42.33, kg, PRN Nausea & Vomiting, Start date: 11/24/17 17:49:00 CDT, Duration: 30 day, Stop date: 12/24/17 17:48:00 CDT Notes: (Same as: Dixie) MEDICATION WASTE Product Size: 4 mgProduct Was karo: ___ mg Start Date: 11/24/17 Stop Date: 12/09/17 Status: Discontinued oxyCODONE 5 mg oral tablet 10 mg, 2 tab, Route: PO, Drug form: TAB, Q4H, Dosing Weight 42.33, kg, PRN Pain Score 7-10, Start date: 11/26/17 9:07:00 CDT, Duration: 2 day, Stop date: 9:06:00 CDT, Pain Score 4-9 Notes: (Same as: Roxicodone) Start Date: 11/26/17 Stop Date: 11/27/17 Status: Discontinued oxyCODONE 5 mg oral tablet 10 mg, 2 tab, Route: PO, Drug form: TAB, Q8H, Dosing Weight 42.33, kg, PRN Pain Score 7-10, Start date: 11/25/17 9:59:00 CDT, Duration: 30 day, Stop date: 12/25 9:58:00 CDT, Pain Score 4-9 Notes: (Same as: Roxicodone) Start Date: 11/25/17 Stop Date: 11/26/17 Status: Discontinued parenteral nutrition solution 1,050 mL 1,050 mL, Rate: 42 ml/hr, Infuse over: 25 hr, Route: IV, Dosing Weight 42.33 kg, Total Volume: 1,050, Start date: 11/25/17 22:00:00 CDT, Duration: 1 day, Stop d ate: 11/26/17 21:59:00 CDT, 1.35, m2 Start Date: 11/25/17 Stop Date: 11/26/17 Status: Completed parenteral nutrition solution 1,550 mL 1,550 mL, Rate: 62.5 ml/hr, Infuse over: 24.8 hr, Route: IV, Dosing Weight 42.31 8 kg, Total Volume: 1,550, Start date: 11/30/17 22:00:00 CDT, Duration: 24 hr, S top date: 12/01/17 21:59:00 CDT, 1.35, m2 Start Date: 11/30/17 Stop Date: 12/01/17 Status: Completed parenteral nutrition solution 1,550 mL 1,550 mL, Rate: 62.5 ml/hr, Infuse over: 24.8 hr, Route: IV, Dosing Weight 42.31 8 kg, Total Volume: 1,550, Start date: 11/26/17 22:00:00 CDT, Duration: 24 hr, S top date: 11/27/17 21:59:00 CDT, 1.35, m2 Start Date: 11/26/17 Stop Date: 11/27/17 Status: Completed parenteral nutrition solution 1,550 mL 1,550 mL, Rate: 62.5 ml/hr, Infuse over: 24.8 hr, Route: IV, Dosing Weight 42.31 8 kg, Total Volume: 1,550, Start date: 12/02/17 22:00:00 CDT, Duration: 24 hr, S top date: 12/03/17 21:59:00 CDT, 1.35, m2 Start Date: 12/02/17 Stop Date: 12/03/17 Status: Completed parenteral nutrition solution 1,550 mL 1,550 mL, Rate: 62.5 ml/hr, Infuse over: 24.8 hr, Route: IV, Dosing Weight 42.31 8 kg, Total Volume: 1,550, Start date: 12/03/17 22:00:00 CDT, Duration: 1 day, S top date: 12/04/17 21:59:00 CDT, 1.35, m2 Start Date: 12/03/17 Stop Date: 12/04/17 Status: Completed parenteral nutrition solution 1,550 mL 1,550 mL, Rate: 62.5 ml/hr, Infuse over: 24.8 hr, Route: IV, Dosing Weight 42.31 8 kg, Total Volume: 1,550, Start date: 12/08/17 22:00:00 CDT, Duration: 1 day, S top date: 12/09/17 21:59:00 CDT, 1.35, m2 Start Date: 12/08/17 Stop Date: 12/09/17 Status: Discontinued parenteral nutrition solution 1,550 mL 1,550 mL, Rate: 62.5 ml/hr, Infuse over: 24.8 hr, Route: IV, Dosing Weight 42.31 8 kg, Total Volume: 1,550, Start date: 12/05/17 22:00:00 CDT, Duration: 1 day, S top date: 12/06/17 21:59:00 CDT, 1.35, m2 Start Date: 12/05/17 Stop Date: 12/06/17 Status: Completed parenteral nutrition solution 1,550 mL 1,550 mL, Rate: 62.5 ml/hr, Infuse over: 24.8 hr, Route: IV, Dosing Weight 42.31 8 kg, Total Volume: 1,550, Start date: 12/07/17 22:00:00 CDT, Duration: 1 day, S top date: 12/08/17 21:59:00 CDT, 1.35, m2 Start Date: 12/07/17 Stop Date: 12/08/17 Status: Completed parenteral nutrition solution 1,550 mL 1,550 mL, Rate: 62.5 ml/hr, Infuse over: 24.8 hr, Route: IV, Dosing Weight 42.31 8 kg, Total Volume: 1,550, Start date: 12/06/17 22:00:00 CDT, Duration: 24 hr, S top date: 12/07/17 21:59:00 CDT, 1.35, m2 Start Date: 12/06/17 Stop Date: 12/07/17 Status: Completed parenteral nutrition solution 1,550 mL 1,550 mL, Rate: 62.5 ml/hr, Infuse over: 24.8 hr, Route: IV, Dosing Weight 42.31 8 kg, Total Volume: 1,550, Start date: 12/09/17 22:00:00 CDT, Duration: 1 day, S top date: 12/10/17 21:59:00 CDT, 1.35, m2 Start Date: 12/09/17 Stop Date: 12/09/17 Status: Canceled parenteral nutrition solution 1,550 mL 1,550 mL, Rate: 62.5 ml/hr, Infuse over: 24.8 hr, Route: IV, Dosing Weight 42.31 8 kg, Total Volume: 1,550, Start date: 11/29/17 22:00:00 CDT, Duration: 1 day, S top date: 11/30/17 21:59:00 CDT, 1.35, m2 Start Date: 11/29/17 Stop Date: 11/30/17 Status: Completed parenteral nutrition solution 1,550 mL 1,550 mL, Rate: 62.5 ml/hr, Infuse over: 24.8 hr, Route: IV, Dosing Weight 42.31 8 kg, Total Volume: 1,550, Start date: 11/27/17 22:00:00 CDT, Duration: 1 day, S top date: 11/28/17 21:59:00 CDT, 1.35, m2 Start Date: 11/27/17 Stop Date: 11/28/17 Status: Completed parenteral nutrition solution 1,550 mL 1,550 mL, Rate: 62.5 ml/hr, Infuse over: 24.8 hr, Route: IV, Dosing Weight 42.31 8 kg, Total Volume: 1,550, Start date: 11/28/17 22:00:00 CDT, Duration: 24 hr, S top date: 11/29/17 21:59:00 CDT, 1.35, m2 Start Date: 11/28/17 Stop Date: 11/29/17 Status: Completed parenteral nutrition solution 1,550 mL 1,550 mL, Rate: 62.5 ml/hr, Infuse over: 24.8 hr, Route: IV, Dosing Weight 42.31 8 kg, Total Volume: 1,550, Start date: 12/04/17 22:00:00 CDT, Duration: 24 hr, S top date: 12/05/17 21:59:00 CDT, 1.35, m2 Start Date: 12/04/17 Stop Date: 12/05/17 Status: Completed parenteral nutrition solution 1,550 mL 1,550 mL, Rate: 62.5 ml/hr, Infuse over: 24.8 hr, Route: IV, Dosing Weight 42.31 8 kg, Total Volume: 1,550, Start date: 12/01/17 22:00:00 CDT, Duration: 1 day, S top date: 12/02/17 21:59:00 CDT, 1.35, m2 Start Date: 12/01/17 Stop Date: 12/02/17 Status: Completed Percocet 10/325 oral tablet 1 tab, Route: PO, Drug Form: TAB, Dosing Weight 42.33, kg, Q8H, PRN, Start date: 11/25/17 9:48:00 CDT, Duration: 30 day, Stop date: 12/25/17 9:47:00 CDT, Pain S core 4-9 Start Date: 11/25/17 Stop Date: 11/25/17 Status: Discontinued Phenergan 25 mg, 1 tab, Route: PO, Drug form: TAB, Q6H, Dosing Weight 42.318, kg, PRN as n eeded for nausea/vomiting, Start date: 12/02/17 16:52:00 CDT, Duration: 30 day, Stop date: 01/01/18 16:51:00 CDT Notes: (Same as: Phenergan) Start Date: 12/02/17 Stop Date: 12/09/17 Status: Discontinued Phenergan + Sodium Chloride 0.9% IV 50 mL 12.5 mg, 0.5 mL, Route: IVPB, Q6H, Dosing Weight 42.318, kg, PRN Nausea, Start d ate: 11/26/17 14:56:00 CDT, Duration: 30 day, Stop date: 12/26/17 14:55:00 CDT Notes: Do not give IV push. (Same as: Phenergan) Start Date: 11/26/17 Stop Date: 12/09/17 Status: Discontinued potassium chloride + Sodium Chloride 0.9% IV 90 mL 20 mEq, 10 mL, Route: IV Central, Q1H, Start date: 11/26/17 12:00:00 CDT, Durati on: 2 doses or times, Stop date: 11/26/17 13:00:00 CDT Notes: MUST be Diluted before use(Same as: KCl) MEDICATION WASTE Product Size: 40 mEqProduct Wasted: ___ mEq Start Date: 11/26/17 Stop Date: 11/26/17 Status: Completed potassium chloride 20 mEq oral tablet, extended release 40 mEq, 2 tab, Route: PO, Drug form: ERTAB, ONCE, Dosing Weight 42.318, kg, Star t date: 11/26/17 17:00:00 CDT, Stop date: 11/26/17 17:00:00 CDT Notes: (Same as: K-Dur 20)"Do Not Crush" With food and full glass of water Start Date: 11/26/17 Stop Date: 11/26/17 Status: Completed promethazine 25 mg oral tablet 25 mg=1 tab, PO, Q8H, PRN Nausea/Vomiting, # 30 tab, 0 Refill(s) Start Date: 11/24/17 Stop Date: 12/04/17 Status: Ordered Protonix 40 mg, 1 tab, Route: PO, Drug form: ECTAB, Before Breakfast, Dosing Weight 42.33 , kg, Start date: 11/25/17 7:30:00 CDT, Duration: 30 day, Stop date: 12/24/17 7: 30:00 CDT Notes: Tablet should not be chewed or crushed.(Same as: Protonix) Start Date: 11/25/17 Stop Date: 12/09/17 Status: Discontinued Protonix 40 mg oral enteric coated tablet 40 mg=1 tab, PO, Daily, # 30 tab, 1 Refill(s) Start Date: 11/24/17 Status: Ordered Saline Flush 0.9% 10 mL, Route: IVP, Drug Form: INJ, Dosing Weight 42.318, kg, Q8H, Start date: 16:00:00 CDT, Duration: 30 day, Stop date: 01/02/18 8:00:00 CDT Notes: Same as: BD Posiflush Sterile Start Date: 12/03/17 Stop Date: 12/03/17 Status: Discontinued Saline Flush 0.9% 10 mL, Route: IVP, Drug Form: INJ, Dosing Weight 42.318, kg, PRN, PRN Line Flush , Start date: 12/03/17 12:19:00 CDT, Duration: 30 day, Stop date: 01/02/18 12:18 :00 CDT Notes: Same as: BD Posiflush Sterile Start Date: 12/03/17 Stop Date: 12/03/17 Status: Discontinued Sodium Chloride 0.9% (Bolus) IV 500 mL, 500 ml/hr, Infuse Over: 1 hr, Route: IV, 500, Drug form: INJ, ONCE, Prio rity: STAT, Dosing Weight 42.318 kg, Start date: 12/05/17 16:15:00 CDT, Stop gilberto e: 12/05/17 16:15:00 CDT Start Date: 12/05/17 Stop Date: 12/05/17 Status: Completed Sodium Chloride 0.9% (Bolus) IV 100 mL, 100 ml/hr, Infuse Over: 1 hr, Route: IV, Continuous, Priority: STAT, Dos ing Weight 40.909 kg, Start date: 11/24/17 13:20:00 CDT, Duration: 30 day, Stop date: 12/24/17 13:19:00 CDT Start Date: 11/24/17 Stop Date: 11/24/17 Status: Deleted Sodium Chloride 0.9% (titrate) 250 mL 250 mL, Rate: To prime line and flush remaining blood products., Dosing Weight 4 2.318, kg, Route: IV, Total Volume: 250, Priority: Routine, Start Date: 11/27/17 18:47:00 CDT, Duration: 30 day, Stop date: 12/27/17 18:46:00 CDT, Replace Every: 24 hr Start Date: 11/27/17 Stop Date: 12/09/17 Status: Discontinued Sodium Chloride 0.9% IV 1,000 mL 1,000 mL, Rate: 75 ml/hr, Infuse over: 13.3 hr, Route: IV, Dosing Weight 42.33 k g, Total Volume: 1,000, Start date: 11/25/17 22:00:00 CDT, Stop date: 11/26/17 2 2:00:00 CDT, 1.35, m2 Start Date: 11/25/17 Stop Date: 11/26/17 Status: Completed tizanidine 4 mg, 1 tab, Route: PO, Drug form: TAB, Q8H, Dosing Weight 42.318, kg, PRN as ne eded for muscle spasm, Start date: 11/30/17 8:34:00 CDT, Duration: 30 day, Stop date: 12/30/17 8:33:00 CDT Notes: (Same As: Zanaflex) Start Date: 11/30/17 Stop Date: 12/09/17 Status: Discontinued tizanidine 4 mg oral tablet 4 mg=1 tab, PO, Q8H, PRN as needed for muscle spasm, 0 Refill(s) Start Date: 12/09/17 Stop Date: 02/03/18 Status: Completed trazodone 50 mg oral tablet 50 mg=1 tab, PO, Bedtime, # 30 tab, 1 Refill(s) Start Date: 11/24/17 Status: Ordered trazodone 50 mg oral tablet 50 mg, 1 tab, Route: PO, Drug form: TAB, Bedtime, Dosing Weight 42.33, kg, PRN I nsomnia, Start date: 11/24/17 19:50:00 CDT, Duration: 30 day, Stop date: 8 19:49:00 CDT Notes: (Same As: Desyrel) Start Date: 11/24/17 Stop Date: 12/09/17 Status: Discontinued zolpidem 5 mg oral tablet 5 mg=1 tab, PO, Bedtime, PRN Sleep, 0 Refill(s) Start Date: 11/24/17 Stop Date: 12/08/17 Status: Ordered Results BLOOD BANK RESULTS 1 2 3 Most recent to oldest [Reference Range]: O POS *Unknown* (11/27/17 10:11 PM) ABO/Rh Negative (11/27/17 10:11 PM) Antibody Scrn Product available (11/27/17 6:47 PM) RBC product ELECTROLYTES 1 2 3 Most recent to oldest [Reference Range]: 137 mEq/L (12/09/17 3:29 AM) 138 mEq/L (12/08/17 4:18 AM) 138 mEq/L (12/07/17 4:18 AM) Sodium Lvl [135-145 mEq/L] 4.0 mEq/L (12/09/17 3:29 AM) 3.7 mEq/L (12/08/17 4:18 AM) 3.8 mEq/L (12/07/17 4:18 AM) Potassium Lvl [3.5-5.1 mEq/L] 103 mEq/L (12/09/17 3:29 AM) 102 mEq/L (12/08/17 4:18 AM) 103 mEq/L (12/07/17 4:18 AM) Chloride Lvl [95-109 mEq/L] 26 mEq/L (12/09/17 3:29 AM) 29 mEq/L (12/08/17 4:18 AM) 28 mEq/L (12/07/17 4:18 AM) CO2 [24-32 mEq/L] 12.0 mEq/L (12/09/17 3:29 AM) 10.7 mEq/L (12/08/17 4:18 AM) 10.8 mEq/L (12/07/17 4:18 AM) AGAP [10.0-20.0 mEq/L] CHEM PANEL 1 2 3 Most recent to oldest [Reference Range]: 0.42 mg/dL *LOW* (12/09/17 3:29 AM) 0.41 mg/dL *LOW* (12/08/17 4:18 AM) 0.56 mg/dL (12/07/17 4:18 AM) Creatinine Lvl [0.50-1.40 mg/dL] 138 mL/min/1.73m2 1 *NA* (12/09/17 3:29 AM) 139 mL/min/1.73m2 2 *NA* (12/08/17 4:18 AM) 125 mL/min/1.73m2 3 *NA* (12/07/17 4:18 AM) eGFR 17 mg/dL (12/09/17 3:29 AM) 15 mg/dL (12/08/17 4:18 AM) 20 mg/dL (12/07/17 4:18 AM) BUN [7-22 mg/dL] 7 (11/25/17 6:11 AM) 8 (11/24/17 5:21 PM) B/C Ratio [6-25] 123 mg/dL *HI* (12/09/17 3:29 AM) 104 mg/dL *HI* (12/08/17 4:18 AM) 124 mg/dL *HI* (12/07/17 4:18 AM) Glucose Lvl [70-99 mg/dL] 5.4 g/dL *LOW* (11/25/17 6:11 AM) 7.6 g/dL (11/24/17 5:21 PM) Total Protein [6.4-8.4 g/dL] 2.2 g/dL *LOW* (11/25/17 6:11 AM) 2.8 g/dL *LOW* (11/24/17 5:21 PM) Albumin Lvl [3.5-5.0 g/dL] 3.2 g/dL (11/25/17 6:11 AM) 4.8 g/dL *HI* (11/24/17 5:21 PM) Globulin [2.7-4.2 g/dL] 0.7 (11/25/17 6:11 AM) 0.6 *LOW* (11/24/17 5:21 PM) A/G Ratio [0.7-1.6] 8.7 mg/dL (12/09/17 3:29 AM) 9.0 mg/dL (12/08/17 4:18 AM) 8.9 mg/dL (12/07/17 4:18 AM) Calcium Lvl [8.5-10.5 mg/dL] 3.8 mg/dL (12/09/17 3:29 AM) 3.2 mg/dL (12/08/17 4:18 AM) 3.4 mg/dL (12/07/17 4:18 AM) Phosphorus [2.5-4.5 mg/dL] 1.9 mg/dL (12/09/17 3:29 AM) 2.1 mg/dL (12/08/17 4:18 AM) 2.1 mg/dL (12/07/17 4:18 AM) Magnesium Lvl [1.8-2.4 mg/dL] 26 unit/L (11/25/17 6:11 AM) 32 unit/L (11/24/17 5:21 PM) ALT [0-65 unit/L] 19 unit/L (11/25/17 6:11 AM) 27 unit/L (11/24/17 5:21 PM) AST [0-37 unit/L] 159 unit/L *HI* (11/25/17 6:11 AM) 184 unit/L *HI* (11/24/17 5:21 PM) Alk Phos [39-136 unit/L] 0.5 mg/dL (11/25/17 6:11 AM) 0.4 mg/dL (11/24/17 5:21 PM) Bili Total [0.2-1.3 mg/dL] 1.4 mMol/L (12/06/17 5:30 PM) Lactic Acid Lvl [0.5-2.2 mMol/L] <0.05 ng/mL (12/06/17 5:30 PM) Procalcitonin Lvl [0.00-0.10 ng/mL] 1Result Comment: The eGFR is calculated using [...] 3 Most recent to oldest [Reference Range]: 127 mg/dL (12/04/17 5:35 AM) 105 mg/dL (11/27/17 10:30 AM) Trig [<=149 mg/dL] URINE CHEM 1 2 3 Most recent to oldest [Reference Range]: Negative (11/24/17 10:19 PM) U Preg [Negative] URINE AND STOOL 1 2 3 Most recent to oldest [Reference Range]: Clear (12/06/17 4:26 PM) UA Turbidity [Clear] Yellow *NA* (12/06/17 4:26 PM) UA Color [Yellow] 7.0 (12/06/17 4:26 PM) UA pH [5.0-8.0] 1.012 (12/06/17 4:26 PM) UA Spec Grav [<=1.030] Negative mg/dL *NA* (12/06/17 4:26 PM) UA Glucose [Negative mg/dL] Negative (12/06/17 4:26 PM) UA Blood [Negative] Negative mg/dL *NA* (12/06/17 4:26 PM) UA Ketones [Negative mg/dL] Negative mg/dL (12/06/17 4:26 PM) UA Protein [Negative mg/dL] <=1.0 mg/dL *NA* (12/06/17 4:26 PM) UA Urobilinogen [0.1-1.0 mg/dL] Negative *NA* (12/06/17 4:26 PM) UA Bili [Negative] Negative (12/06/17 4:26 PM) UA Leuk Est [Negative] Negative (12/06/17 4:26 PM) UA Nitrite [Negative] Occasional /LPF *NA* (12/06/17 4:26 PM) UA Sq Epi [Few /LPF] Few /LPF *NA* (12/06/17 4:26 PM) UA Mucus [None Seen /LPF] IMMUNOLOGY 1 2 3 Most recent to oldest [Reference Range]: 15.1 mg/dL *LOW* (12/04/17 5:35 AM) 7.3 mg/dL *LOW* (11/27/17 10:30 AM) Prealbumin [18.0-45.0 mg/dL] 41.2 mg/L *HI* (12/03/17 4:42 AM) 153.0 mg/L *HI* (11/24/17 5:21 PM) CRP [<=2.9 mg/L] <0.5 APL-U/mL (12/04/17 10:16 PM) Cardiolipin IgA [<=19.9 APL-U/mL] <1.6 GPL-U/mL (12/04/17 10:16 PM) Cardiolipin IgG [<=19.9 GPL-U/mL] 0.2 MPL-U/mL (12/04/17 10:16 PM) Cardiolipin IgM [<=19.9 MPL-U/mL] 0.3 unit/mL (12/04/17 10:16 PM) Beta2-Glycoprotein IgM [<=19.9 unit/mL] <1.4 unit/mL (12/04/17 10:16 PM) Beta2-Glycoprotein IgG [<=19.9 unit/mL] 0.6 unit/mL (12/04/17 10:16 PM) Beta2-Glycoprotein IgA [<=19.9 unit/mL] Comment 1 *NA* (12/04/17 11:35 PM) JAK2 (V617F) Background Comment 2 *NA* (12/04/17 11:35 PM) JAK2 (V617F) Mutation Detection Comment 3 *NA* (12/04/17 11:35 PM) JAK2 Director Review 1Result Comment: JAK2 is a cytoplasmic tyrosine kinase with a walls role in signal transduction from multiple hematopoietic growth factor receptors. A point mutation within exon 14 of the JAK2 gene ([id number]) encoding a valine to phenylalanine substitution at [...] type (WT) and JAK2 mutant V617F. The [id number] Absolute Quantitation software will compare the patient specimen valuse to the standard curves and generate percent values for wild type and mutant type. In vitro studies have indicated that this assay has an analytical sensitivity of 1%. References: Bob EJ, Gustavo LM, Ronald PJ, et al. Acquired mutation of the tyrosine kinase JAK2 in human myeloproliferative disorders. Lancet. 2005 Nov 23; 365(8429):0569-8471. Abdias Ash, Vito V, Jenny Field JP. A unique clonal JAK2 mutation leading to constitutive signaling causes polycythaemia vera. Nature. 2005 Dec 28; 434(9016):8814-9679. Emily R, Arcadio F, Balbina , et al. A gain-of- function mutation of JAK2 in myeloproliferative disorders. N Engl J Med. 2005 Jan 02; 352(17):6714-2209. Performed At: [facility] [address] [facility], [place] [id number] Gladys Ordonez MD Ph:[phone] Performed At: [facility] [address] [facility] [employer] [facility] [place], [place] [id number] Gladys Ordonez MD Ph:[phone] 2Result Comment: Result: NEGATIVE for the JAK2 V617F [...] detected in all patients with these disorders. 3Result Comment: Gianna Pinon MD, PhD Director, [facility] [place] [address] HEMATOLOGY 1 2 3 Most recent to oldest [Reference Range]: 15.8 K/CMM *HI* (12/05/17 7:49 AM) 19.1 K/CMM *HI* (12/04/17 5:35 AM) 21.7 K/CMM *HI* (12/03/17 4:31 AM) WBC [3.7-10.4 K/CMM] 3.68 M/CMM *LOW* (12/05/17 7:49 AM) 5.17 M/CMM (12/04/17 5:35 AM) 4.14 M/CMM *LOW* (12/03/17 4:31 AM) RBC [4.20-5.40 M/CMM] 10.7 g/dL *LOW* (12/08/17 4:18 AM) 10.2 g/dL *LOW* (12/05/17 7:49 AM) 13.6 g/dL (12/04/17 5:35 AM) Hgb [12.0-16.0 g/dL] 31.9 % *LOW* (4/3/18 4:18 AM) 29.6 % *LOW* (12/05/17 7:49 AM) 41.8 % (12/04/17 5:35 AM) Hct [36.0-48.0 %] 80.5 fL (12/05/17 7:49 AM) 80.9 fL (12/04/17 5:35 AM) 80.5 fL (12/03/17 4:31 AM) MCV [80.0-98.0 fL] 27.6 pg (12/05/17 7:49 AM) 26.3 pg *LOW* (12/04/17 5:35 AM) 28.4 pg (12/03/17 4:31 AM) MCH [27.0-31.0 pg] 34.3 g/dL (12/05/17 7:49 AM) 32.5 g/dL (12/04/17 5:35 AM) 35.2 g/dL (12/03/17 4:31 AM) MCHC [32.0-36.0 g/dL] 15.8 % *HI* (12/05/17 7:49 AM) 15.9 % *HI* (12/04/17 5:35 AM) 16.0 % *HI* (12/03/17 4:31 AM) RDW [11.5-14.5 %] 7.2 fL *LOW* (12/05/17 7:49 AM) 7.1 fL *LOW* (12/04/17 5:35 AM) 7.2 fL *LOW* (12/03/17 4:31 AM) MPV [7.4-10.4 fL] 344 K/CMM (12/05/17 7:49 AM) 413 K/CMM (12/04/17 5:35 AM) 465 K/CMM *HI* (12/03/17 4:31 AM) Platelet [133-450 K/CMM] 72.6 % (11/25/17 6:11 AM) 85.5 % *HI* (11/24/17 5:21 PM) Segs [45.0-75.0 %] 14.1 % *LOW* (11/25/17 6:11 AM) 5.3 % *LOW* (11/24/17 5:21 PM) Lymphocytes [20.0-40.0 %] 10.7 % (11/25/17 6:11 AM) 8.2 % (11/24/17 5:21 PM) Monocytes [2.0-12.0 %] 2.4 % (11/25/17 6:11 AM) 0.7 % (11/24/17 5:21 PM) Eosinophils [0.0-4.0 %] 0.2 % (11/25/17 6:11 AM) 0.3 % (11/24/17 5:21 PM) Basophils [0.0-1.0 %] 7.7 K/CMM (11/25/17 6:11 AM) 11.2 K/CMM *HI* (11/24/17 5:21 PM) Segs-Bands # [1.5-8.1 K/CMM] 1.5 K/CMM (11/25/17 6:11 AM) 0.7 K/CMM *LOW* (11/24/17 5:21 PM) Lymphocytes # [1.0-5.5 K/CMM] 1.1 K/CMM *HI* (11/25/17 6:11 AM) 1.1 K/CMM *HI* (11/24/17 5:21 PM) Monocytes # [0.0-0.8 K/CMM] 0.2 K/CMM (11/25/17 6:11 AM) 0.1 K/CMM (11/24/17 5:21 PM) Eosinophils # [0.0-0.5 K/CMM] 80 mm/hr *HI* (11/24/17 5:21 PM) Sed Rate [0-20 mm/hr] Negative (12/04/17 11:35 PM) F2 Mutation PCR FACTOR II PT: Negative INTERPRETATION: Molecular analysis for the Factor II (Prothrombin) 48998H>A mutation was negative. Other causes of elevated prothrombin levels and hereditary forms of venous thrombosis are not ruled out. Final diagnosis requires correlation with clinical history and other pertinent laboratory findings. Where appropriate, medical consultation and genetic counseling should be offered to inform and explain the risk implications and genetic implications of these test results. ASSAY LIMITATIONS: The assay uses the FDA-cleared [place] Factor II (Prothrombin) [id number] IVD (Polymerase chain reaction/FRET detection)kit, [employer] PenPathA Pure LC Instrument and the [employer] LightCycler 1.2 Instrument. A 165-bp fragment of Factor II gene(FII) containing the Factor II [id number] sequence is amplified in the assay. The assay is designed to detect the [id number] mutation only. Other causes of elevated prothrombin levels and hereditary forms of venous thrombosis are not ruled out. However, the melting curve analysis may implicate the presence of a possible rare mutation at position 87637 (Further testing will be recommended in the report). A minimum detection level is 198 copies of Factor II per reaction. The level of agreement between the Factor II(Prothrombin) [id number] Kit and sequence analysis was 98.9%. The test result must be interpreted along with the patient's clinical history and revelant laboratory data. This assay has been validated by [facility]. *NA* (12/04/17 11:35 PM) F2 Mut Interp Negative (12/04/17 11:35 PM) F5 Leiden PCR FACTOR V LEIDEN: Negative INTERPRETATION: Molecular analysis for the Factor V Leiden, R506Q mutation was negative. Other causes of activated protein C resistance and hereditary forms of venous thrombosis are not ruled out. Final diagnosis requires correlation with clinical history and other pertinent laboratory findings. Where appropriate, medical consultation and/or genetic counseling should be offered to inform and explain the risk implications and genetic implications of these test results. ASSAY LIMITATIONS: The assay uses the FDA-cleared [place] Factor V Leiden IVD(Poymerase chain reaction/FRET detection)kit, [employer] PenPathA Pure LC Instrument and the [employer] LightCycler 1.2 [...] data. This assay has been validated by [facility]. *NA* (12/04/17 11:35 PM) F5 Leiden Intrp 119 % (12/04/17 11:35 PM) AT III Func [77-140 %] 1.19 (12/04/17 10:17 PM) dRVV Ratio [<=1.20] Negative (12/04/17 10:17 PM) Hex Phos N [Negative] Negative for lupus anticoagulant by DRVV screen and hexagonal phospholipid neutralization test. If there is a strong clinical suspicion of lupus anticoagulant, additional testing, to include repeat studies at a clinically appropriate interval and anticardiolipin antibody assays, is recommended. Interpretation performed at [facility]. *NA* (12/04/17 10:17 PM) Lup Interp 182 % *HI* (12/04/17 10:17 PM) Protein C Func [72-147 %] 72 % (12/04/17 11:35 PM) Protein S Func [54-137 %] Microbiology Reports TEST: Culture: Aspirate/Body Fluid/Tissue STATUS: Auth (Verified) BODY SITE: Abdomen SOURCE: Abdominal Fluid COLLECTED DATE/TIME: 11/25/17 3:10 PM FINAL REPORT Many Vancomycin Resistant Enterococcus Few Carola albicans Few Carola tropicalis STAIN REPORT Moderate WBC's Rare Gram Negative Rods ORGANISM:Vancomycin Resistant Enterococcus ORGANISM:Carola albicans ORGANISM:Carola tropicalis Immunizations No data available for this section [...] 02/03/18 Assessment and Plan Extracted from: Title: HO Progress Note Author: Sanjay Wang MD Date: 12/09/17 Hematology Oncology Progress Note SUBJECTIVE Patient reports feeling well. Pending discharge to an LTAC. ROS: No CP, SOB, N/V OBJECTIVE VitalsTmp(F)[id number] 12/09 19:[id number]--- 12/09 15:1098.478125/696804--- 12/09 10:5898.844348/526229--- 12/09 10:56----13494/72-------- 12/09 06:2198.63856/734659--- 24 Hr Tmax: 99.3F (37.39c) at 12/09 00:41Vital Signs are the last 5 in the past 48 hours. Gen: NAD, AAOx3 HEENT: PERRL, EOMI, MMM Heart: RRR, S1, s2, no M/R/G Lungs: CTAB, no W/R/R Abd: soft, NT/ND, +BS, no HSM : no suprapubic tenderness Extrem: no pitting edema noted Labs: Hct: 31.9 % Low (12/08/17 14:01:39) Hgb: 10.7 g/dL Low (12/08/17 14:01:39) MCH: 27.6 pg (12/05/17 08:11:57) MCHC: 34.3 g/dL (12/05/17 08:11:57) MCV: 80.5 fL (12/05/17 08:11:57) MPV: 7.2 fL Low (12/05/17 08:11:57) Platelet: 344 K/CMM (12/05/17 08:11:57) RBC: 3.68 M/CMM Low (12/05/17 08:11:57) RDW: 15.8 % High (12/05/17 08:11:57) WBC: 15.8 K/CMM High (12/05/17 08:11:57) AGAP: 12 mEq/L (12/09/17 04:45:50) Chloride Lvl: 103 mEq/L (12/09/17 04:45:50) CO2: 26 mEq/L (12/09/17 04:45:50) Potassium Lvl: 4 mEq/L (12/09/17 04:45:50) Sodium Lvl: 137 mEq/L (12/09/17 04:45:50) A/G Ratio: 0.7 (11/25/17 07:14:04) Albumin Lvl: 2.2 g/dL Low (11/25/17 07:14:04) Alk Phos: 159 unit/L High (11/25/17 07:14:04) ALT: 26 unit/L (11/25/17 07:14:04) AST: 19 unit/L (11/25/17 07:14:04) B/C Ratio: 7 (11/25/17 07:14:04) Bili Total: 0.5 mg/dL (11/25/17 07:14:04) BUN: 17 mg/dL (12/09/17 04:45:50) Calcium Lvl: 8.7 mg/dL (12/09/17 04:45:50) Creatinine Lvl: 0.42 mg/dL Low (12/09/17 04:45:50) eGFR: 138 mL/min/1.73m2 (12/09/17 04:45:51) Globulin: 3.2 g/dL (11/25/17 07:14:04) Glucose Lvl: 123 mg/dL High (12/09/17 04:45:50) Total Protein: 5.4 g/dL Low (11/25/17 07:14:04) Imaging: Imaging Studies (last 36 hours) Abdomen/Pelvis w IV contrast CT 12/08/2017 22:49 Impression: 1. The anterior right lower quadrant drainage [...] are no blastic or destructive lesions. SL: [facility] ASSESSMENT & PLAN Right portal vein thrombosis Concerning for hypercoagulable state The other etiologies at play could be inflammation in the abdomen which could have provoked vascular thrombosis Considering that patient continues to have inflammation in her abdomen, she is at high risk of thrombosis again. Therefore recommend anticoagulation with heparin drip and eventual transition to direct oral anticoagulants We will submit hypercoagulable workup which includes: Antithrombin III, factor V Leiden, prothrombin mutation, lupus anticoagulant panel, cardiolipin antibody, beta-2 glycoprotein antibody, protein S, protein C. Portal vein thrombosis is also associated with Ghulam 2 mutation which would alter our management, therefore we will check that as well. hypercoagulable workup has been negative so far. Considering that right portal vein thrombosis is chronic and was sufficiently treated in the past, patient only needs prophylactic dose of anticoagulation. Will start patient on Eliquis 2.5 mg every 12 hours. Patient is agreeable. - 12/09/17 started on Eliquis 2.5 mg q12 hrs, no new bleeding Extracted from: Title: Discharge Summary * Author: Antonio Tello MD Date: 12/09/17 Discharge Information Disposition: [facility] Condition: Stable Medications: See med reconciliation form Diet: N.p.o., TPN Discharge Plan In the event of any worsening symptoms patient advised to come back to the ED for further evaluation Discharge summary to greater than 35 minutes Extracted from: Title: Clinical Document Author: Michoacano Barcenas MD Date: 12/05/17 Consultation Note ONSULTING PHYSICIAN: Dr. Tello REASON FOR CONSULTATION: Right portal vein thrombosis CHIEF COMPLAINT: Abdominal pain HPI: The patient is a 31-year-old female with past medical history of Crohn's disease with history of intra-abdominal abscesses currently on Humira, who presented to the hospital with right lower quadrant abdominal pain of one- week duration. CT abdomen pelvis showed 6 cm abscess in the right lower quadrant, abutting the iliac is muscle with sinus tract to the overlying skin, possibly related to prior drainage. Another 2.5 cm abscess in the presacral soft tissue was noted. New hepatosplenomegaly was also noted. Infectious disease was consulted and patient is currently on meropenem and daptomycin. Pain management was also consulted. Percutaneous drain was placed in the right lower quadrant abscess. Subsequently, abscess drain was removed on December 02. However, patient started spiking fevers and her white count increased. Colorectal surgery was consulted for evaluation. The drain was replaced on December 04, 2017. During evaluation, CT abdomen and pelvis was done on December 03, which showed chronic occlusion of the right portal vein with right hepatic lobe atrophy. Hematology is consulted for evaluation and management of right portal vein thrombosis. PAST MEDICAL HISTORY: UTI - Urinary tract infection Active Problems (4) Crohn's disease Moderate protein-calorie malnutrition Ulcerative colitis [...] No qualifying data available Inpatient Medications: Medications (22) Active Scheduled Meds (5): 11/26/17 DAPTOmycin + Sodium Chloride 0.9% IV 100 mL 250 mg IVPB [id number] 200 ml/hr 11/24/17 enoxaparin (Lovenox) 40 mg SUB-Q [id number] 11/27/17 meropenem + Sodium Chloride 0.9% IV 100 mL 500 mg IVPB [id number] 33.33 ml/hr 11/25/17 midodrine 5 mg PO TID 11/25/17 pantoprazole (Protonix) 40 mg PO Before Breakfast Unscheduled Meds: None PRN Meds (11): 11/24/17 ALPRAZOLam (ALPRAZOLam 1 mg oral tablet) 1 mg PO TID 11/27/17 acetaminophen-hydrocodone ([place] 10/325 oral tablet) 1 tab PO Q4H 11/24/17 acetaminophen 650 mg PO Q6H 11/24/17 docusate 100 mg PO BID 11/24/17 hyoscyamine 0.125 mg PO QID 11/26/17 ibuprofen (Motrin) 600 mg PO Q6H 11/24/17 ondansetron 4 mg IVP Q6H 11/26/17 promethazine + Sodium Chloride 0.9% IV 50 mL (Phenergan + Sodium Chloride 0.9% IV 50 mL) 12.5 mg IVPB Q6H 151.5 ml/hr 12/02/17 promethazine (Phenergan) 25 mg PO Q6H 11/30/17 tizanidine 4 mg PO Q8H 11/24/17 trazodone (trazodone 50 mg oral tablet) 50 mg PO Bedtime One Time Meds (2): 12/03/17 (Ordered) iohexol (Omnipaque 300) 50 ml PO ONCE 12/03/17 (Ordered) iohexol (Omnipaque 300) 100 ml IV ONCE Continuous Infusions (4): 11/27/17 Sodium Chloride 0.9% IV 250 mL (Sodium Chloride 0.9% (titrate) 250 mL) 250 mL To prime line and flush remaining blood products. 12/04/17 fat emulsion, intravenous 250 mL 31.25 ml/hr 12/03/17 parenteral nutrition solution 1,550 mL 1,550 mL 62.5 ml/hr 12/04/17 parenteral nutrition solution 1,550 mL 1,550 mL 62.5 ml/hr PHYSICAL EXAMINATION: VitalsTmp(F)[id number] 12/04 16:2395.2729626/7316------ 12/04 12:2098.61176/6216------ 12/04 09:4999.6 12/04 08:2210750489/6016------ 12/04 03:1097.133660/6314------ 24 Hr Tmax: 103F (39.44c) at 12/04 08:31Vital Signs are the last 5 in the past 48 hours. Patient could not be seen, since she was out of the room DATA: Labs reviewed, noted Hct: 41.8 % (12/04/17 07:03:05) Hgb: 13.6 g/dL (12/04/17 07:03:05) MCH: 26.3 pg Low (12/04/17 07:03:05) MCHC: 32.5 g/dL (12/04/17 07:03:05) MCV: 80.9 fL (12/04/17 07:03:05) MPV: 7.1 fL Low (12/04/17 07:03:05) Platelet: 413 K/CMM (12/04/17 07:03:05) RBC: 5.17 M/CMM (12/04/17 07:03:05) RDW: 15.9 % High (12/04/17 07:03:05) WBC: 19.1 K/CMM High (12/04/17 07:03:05) AGAP: 15.6 mEq/L (12/04/17 06:51:52) Chloride Lvl: 99 mEq/L (12/04/17 06:51:52) CO2: 24 mEq/L (12/04/17 06:51:52) Potassium Lvl: 4.6 mEq/L (12/04/17 06:51:52) Sodium Lvl: 134 mEq/L Low (12/04/17 06:51:52) A/G Ratio: 0.7 (11/25/17 07:14:04) Albumin Lvl: 2.2 g/dL Low (11/25/17 07:14:04) Alk Phos: 159 unit/L High (11/25/17 07:14:04) ALT: 26 unit/L (11/25/17 07:14:04) AST: 19 unit/L (11/25/17 07:14:04) B/C Ratio: 7 (11/25/17 07:14:04) Bili Total: 0.5 mg/dL (11/25/17 07:14:04) BUN: 25 mg/dL High (12/04/17 06:51:52) Calcium Lvl: 9.9 mg/dL (12/04/17 06:51:52) Creatinine Lvl: 0.84 mg/dL (12/04/17 06:51:52) eGFR: 94 mL/min/1.73m2 (12/04/17 06:51:53) Globulin: 3.2 g/dL (11/25/17 07:14:04) Glucose Lvl: 76 mg/dL (12/04/17 06:51:52) Total Protein: 5.4 g/dL Low (11/25/17 07:14:04) Review of Systems Constitutional: Negative Eye: Negative. ENT: Negative. Respiratory: Negative. Cardiovascular: Negative Gastrointestinal: Negative. Genitourinary: Negative. Hematology/Lymphatics: Negative Endocrine: Negative. Immunologic: Negative. Musculoskeletal: Negative Skin: Negative Neurologic: Negative Psychiatric: Negative. Past Medical History: UTI - Urinary tract infection Past Surgical History: Creation of ileostomy Total colectomy Insertion of Port-a-cath Drainage of abscess Family History: No qualifying data available Social History: Alcohol Details: Never Tobacco Details: Use: Current every day smoker. Type: Cigarettes. 10 per day. 8 year(s). Ready to change: No. Household tobacco concerns: No. Tobacco smoke exposure: None. Did the Patient Smoke Cigarettes Anytime During the Last 365 Days? Yes. Cessation Counseling Provided? Yes. Allergies: Surgical Tape, Zofran, morphine I have reviewed Home Med Reconciliation list and the hospital MAR. VitalsTmp(F)[id number] 12/05 23:[id number]------ 12/05 19:[id number]/7316------ 12/05 11:[id number]/60--97--- 12/05 07:0399.546057/63--96--- 12/05 03:[id number]/7116------ 24 Hr Tmax: 101.3F (38.50c) at 12/05 11:03Vital Signs are the last 5 in the past 48 hours. Physical Exam: General: NAD, Alert and oriented x 3 Cardiovascular: Regular rate and rhythm Lungs: Nonlabored respirations. Clear to auscultation bilaterally Abdomen: Soft, nontender/nondistended. No splenomegaly or hepatomegaly noted on palpation or percussion. Extremities: No edema and otherwise appropriate. Skin: No ecchymoses. No rash. Labs (Last four charted values) WBC H 15.8(DEC 05)H 19.1(DEC 04)H 21.7(DEC 03)H 18.5(DEC 01) Hgb L 10.2(DEC 05)13.6(DEC 04)L 11.7(DEC 03)L 11.2(DEC 01) Hct L 29.6(DEC 05)41.8(DEC 04)L 33.3(DEC 03)L 32.1(DEC 01) Plt 344(DEC 05)413(DEC 04)H 465(DEC 03)H 482(DEC 01) Na 135(DEC 05)L 134(DEC 04)L 134(DEC 03)136(DEC 02) K 3.8(DEC 05)4.6(DEC 04)4.6(DEC 03)4.3(DEC 02) CO2 28(DEC 05)24(DEC 04)28(DEC 03)28(DEC 02) Cl 100(DEC 05)99(DEC 04)99(DEC 03)102(DEC 02) Cr 0.53(DEC 05)0.84(DEC 04)0.71(DEC 03)0.55(DEC 02) BUN H 23(DEC 05)H 25(DEC 04)22(DEC 03)20(DEC 02) Glucose Random H 112(DEC 05)76(DEC 04)98(DEC 03)H 110(DEC 02) Mg 2.2(DEC 05)2.2(DEC 04)2.0(DEC 03)2.1(DEC 02) Phos 3.8(DEC 05)H 5.3(DEC 04)3.0(DEC 03)4.1(DEC 02) Ca 9.2(DEC 05)9.9(DEC 04)9.0(DEC 03)9.6(DEC 02) 24hr Labs 12/05 0749 Glucose Jne415 H BUN23 H Creatinine Lvl0.53 Sodium Xea070 Potassium Lvl3.8 Chloride Ryh587 CO228 AGAP10.8 Calcium Lvl9.2 mCPF793 Magnesium Lvl2.2 Phosphorus3.8 WBC15.8 H RBC3.68 L Hgb10.2 L Hct29.6 L MCV80.5 MCH27.6 MCHC34.3 RDW15.8 H Xtpvwuxd213 MPV7.2 L 12/05 0609 POC Performing LocatioSee Note Glucose QWB189 H 12/04 2341 POC Performing LocatioSee Note Glucose WDK551 H Radiology: _ Imaging reviewed, noted Imaging Studies (last 36 hours) Abscess abdomen peritoneum drainage VR 12/04/2017 12:04 Impression: Successful CT-guided placement of a 12-[place] drainage catheter within the right lower quadrant fluid collection. SL: [id number] Enterography Abd/Pelvis w/wo contrast MRI 12/04/2017 09:02 Impression: 1. Chronic thrombosis right portal vein accounting [...] to evaluate for developing small bowel obstruction. SL TVU PC Abdomen/Pelvis w IV contrast CT 12/03/2017 20:15 Impression: 1. Rim-enhancing draining abscess/cavernous fistula track within [...] lobe atrophy, probable sludge in the gallbladder. EZIO: MEENA ASSESSMENT AND PLAN: Right portal vein thrombosis Concerning for hypercoagulable state The other etiologies at play could be inflammation in the abdomen which could have provoked vascular thrombosis Considering that patient continues to have inflammation in her abdomen, she is at high risk of thrombosis again. Therefore recommend anticoagulation with heparin drip and eventual transition to direct oral anticoagulants We will submit hypercoagulable workup which includes -Antithrombin III, factor V Leiden, prothrombin mutation, lupus anticoagulant panel, cardiolipin antibody, beta-2 glycoprotein antibody, protein S, protein C. Portal vein thrombosis is also associated with Ghulam 2 mutation which would alter our management, therefore we will check that as well. Extracted from: Title: General Admission H&P * Author: Antonio Tello MD Date: 11/24/17 Patient: DELTA BARRIOS Age: 31 years Sex: Female : 1985 Associated Diagnoses: None Author: Antonio Tello MD Chief Complaint 11/24/2017 17:33 abdominal pain History of Present Illness 31-year-old female with history of Crohn's disease with history of intra- abdominal abscesses currently on Humira and follows up with infectious disease, chronic pain syndrome who presents to the [facility] as a direct admission by ID physician. Patient reports right lower quadrant abdominal pain ongoing for the last 1 week. She reports that her pain medications has not been very helpful. She reports seeing a GI specialist in [place]. She reports recently being on IV antibiotics due to an intra-abdominal abscess. Patient denies any fever chest pain palpitations. Patient seen and evaluated at bedside on the medical floor currently doing okay but complaining of abdominal pain in the right lower quadrant. CT abdomen pelvis with IV contrast has been ordered. Antibiotics has been started by the infectious disease doctor. Pain management will be consulted. Review of Systems Pertinent positive: Right lower quadrant abdominal pain, nausea vomiting decreased oral intake Pertinent negative: Denies any chest pain palpitations dysuria hematuria frequency urgency lightheadedness dizziness headache shortness of breath or any other complaints The rest of 14 point review systems have been reviewed with the patient and are negative Health Status Allergies: Allergic Reactions (Selected) Severity Not Documented Morphine- No reactions were documented., Allergies (1) ActiveReaction morphineNone Documented Current medications: (Selected) Inpatient Medications Ordered DAPTOmycin + Sodium Chloride 0.9% IV 50 mL: 150 mg, 100 ml/hr, IVP, Daily NS 1000 mL: 100 ml/hr, IV, Stop: 12/24/17 17:49:00 CDT Sodium Chloride 0.9% (Bolus) IV: 100 mL, 100 ml/hr, IV, Continuous acetaminophen-hydrocodone 325 mg-5 mg oral tablet: 1 tab, PO, Q6H, PRN: Pain Score 4-6 acetaminophen: 650 mg, PO, Q6H, PRN: Pain 1-3/Temp > 100.4 F docusate: 100 mg, PO, BID, PRN: as needed for constipation meropenem: 500 mg, IVPB, ABXQ8H ondansetron: 4 mg, IVP, Q6H, PRN: Nausea & Vomiting, Medications (8) Active Scheduled: (3) DAPTOmycin INJ 500mg + sodium chloride 0.9% INJ 50 mL 150 mg, IVP, Daily meropenem 500 mg, IVPB, ABXQ8H Sodium Chloride 0.9% IV 100 mL, IV, Continuous Continuous: (1) Sodium Chloride 0.9% IV 1000 mL 1,000 mL, IV, 100 ml/hr PRN: (4) acetaminophen 650 mg, PO, Q6H acetaminophen-hydrocodone 1 tab, PO, Q6H docusate 100 mg, PO, BID ondansetron 4 mg, IVP, Q6H Problem list: All Problems Ulcerative colitis / SNOMED CT [id number] / Confirmed, Active Problems (1) Ulcerative colitis Histories Past Medical History: Active Ulcerative colitis (366141865) Resolved UTI - Urinary tract infection (2508908322): Resolved. Family History: Hypertension, diabetes Procedure history: Total colectomy (56446255). Creation of ileostomy ([id number]). Drainage of abscess (838519023). Insertion of Port-a-cath ([id number]). Social History Social & Psychosocial Habits Alcohol 11/24/2017 Use: Never Tobacco 11/24/2017 Use: Current every day smoker Type: Cigarettes Tobacco use per day: 10 Number of years: 8 Ready to change: No Concerns about tobacco use in household: No Exposure to Tobacco Smoke None Cigarette Smoking Last 365 Days Yes Reg Smoking Cessation Counseling Yes . Reports no drugs Physical Examination VS/Measurements Vital Signs (last 24 hrs) Last Charted Temp OralH 103.1DegF (NOV 24 17:15) Heart Rate PeripheralH 121bpm (NOV 24 17:15) IYX042 mmHg (NOV 24:) DBP65 mmHg (NOV 24:) Oywims95.33 kg (NOV 24:) Zmsydg468.4 cm (NOV 24:) BMI18.23 (NOV 24:) Review / Management Results review: Labs (Last four charted values) WBC H 13.1(NOV 24) Hgb L 9.3(NOV 24) Hct L 28.7(NOV 24) Plt 284(NOV 24). Sodium 139 potassium 3.9 chloride 104 bicarb 26 anion gap of 12 creatinine is 0.72 BUN 6 glucose 101. Total protein 7.6 albumin 2.8 calcium is 8.2 ALT 32 AST 27 alk phos 184 Impression and Plan 1. Abdominal pain concerning for underlying abscess/leukocytosis/fever CT abdomen and pelvis with IV contrast ordered, pain control, IV antibiotics daptomycin and Merrem, ID consulted, blood cultures collected 2. History of Crohn's disease pain control, get GI consultation 3. Chronic pain syndrome resume all home medications, pain management consult 4. Prophylaxis Lovenox 5. Fluid electrolytes nutrients IV fluids, clear liquid diet 6. Disposition inpatient, ID consulted Addendum General: NAD, alert and oriented x3 by Elisha HEENT: normacephalic, atraumatic, PERRLA, EOMI, supple w/ good ROM, normal pharynx Jiries Pulm: CTA B/L no w/r/r/c Ronald CV: +S1, +S2 no m/r/g, RRR, good cap refill, No JVD, no carotid bruits on Abd: ND, NTTP, no rebound or guarding, BS+ 11/25/2017 Skin: intact, warm and dry, no rashes 16:44 Musculoskeletal: 5/5 strength, normal range of motion, no swollen joints Neuro: alert and oriented x3, CN 2-12 intact Psychiatry: good judgment and insight Extremities: no edema, cyanosis or clubbing : has stewart
--- OUTSIDE RECORDS SUMMARY | 2018-10-15 11:31 | XMS REPORT ---
Author Author [facility] Address Unknown Phone Unavailable Care Team Providers Care Marketing Development Specialist Name Role Phone OMID ELI Unavailable Unavailable HUBERT MIR Unavailable Unavailable Fabby NAVARRO Unavailable Unavailable Problems This patient has no known problems. Allergies, Adverse Reactions, Alerts This patient has no known allergies or adverse reactions. Medications This patient has no known medications. Results Test Description Test Time Test Comments Text Results Atomic Results Result Comments CHEST 2 VIEWS 2018-10-13 11:50:00 [place] [address] Patient Name: DELTA BARRIOS MR #: [id number] : 1985 Age/Sex: 32/F Req #: [id number] Adm Physician: Ordered by: CYNTHIA ROSS MD Report #: [id number] Location: OR Room/Bed: Procedure: [id number] DX/CHEST 2 VIEWS Exam Date: 10/13/18 Exam Time: 1110 REPORT STATUS: Signed EXAMINATION: CHEST 2 VIEWS INDICATION: Pre-op COMPARISON: Chest radiograph 10/25/2017. FINDINGS: TUBES and LINES: Right-sided chest port with catheter tip overlying the mid SVC. LUNGS: Lungs are well inflated. Lungs are clear. There is no evidence of pneumonia or pulmonary edema. PLEURA: No pleural effusion or pneumothorax. HEART AND MEDIASTINUM: The cardiomediastinal silhouette is unremarkable. BONES AND SOFT TISSUES: No acute osseous lesion. Soft tissues are unremarkable. UPPER ABDOMEN: No free air under the diaphragm. IMPRESSION: No acute radiographic abnormality. Signed by: Dr. Shawn Poe MD on 10/13/2018 11:52 AM Dictated By: SHAWN POE MD 1152 Transcribed By: ROGERS on 10/13/18 1152 COPY TO: CYNTHIA ROSS MD ABD FLUID/ABSC W CATH-CT [place] [address] Patient Name: DELTA BARIROS MR #: [id number] : 1985 Age/Sex: 31/F Req #: [id number] Adm Physician: HUBERT MIR MD Ordered by: MARKUS GRIMES Report #: [id number] Location: MED/SURG2 Room/Bed: [facility] Procedure: [id number] CT/PAUL SCOTT FLUID/ABSC W CATH-CT Exam Date: Exam Time: REPORT STATUS: Signed PROCEDURE: DRLisa ABD FLUID/ABSC W/CATH-CT COMPARISON: CT abdomen and pelvis 10/27/2017. INDICATIONS: Right lower quadrant fluid collection. Preprocedure diagnosis: Right lower quadrant fluid collection Post procedure diagnosis: Right lower quadrant abscess Sedation/anesthesia: Fentanyl 100 mcg intravenous, Versed 2 mg intravenous. The patient's heart rate and pulse oximetry were continuously monitored by the interventional radiology nurse. Blood pressure was monitored at 5 minute intervals. Additional medications: Lidocaine 1% for local anesthesia Estimated blood loss: Minimal Blood products administered: None Specimens: 5 cc purulent fluid was submitted for microbiologic analysis Implants/grafts: 10 [place] locking loop all-purpose drainage catheter Contrast used: None Fluoroscopy time: Zero Condition at completion of procedure: Stable Disposition: Radiology holding then returned to coe unit. Procedure in detail: Informed consent for the procedure was obtained from the patient and documented in the medical record after discussion of risks and benefits. The patient was placed in the supine position on the CT couch. A marker grid was placed over the right lower quadrant of the abdomen and limited CT scan was performed identifying a suitable percutaneous approach. Right lower quadrant was then prepped and draped in standard sterile fashion. One percent lidocaine was infiltrated into the skin and subcutaneous tissues for local anesthesia. Then under intermittent CT guidance, an 18 gauge needle was advanced into the right lower quadrant fluid collection. Purulent material was aspirated. A 0.035 inch Amplatz wire was advanced through the needle. The needle was removed over the wire and the tract was dilated. Then a 10 [place] locking loop all-purpose drainage catheter was advanced [id number] and the locking loop was formed within the fluid collection. Final CT image confirmed appropriate catheter positioning. Approximately 5 cc of purulent material were aspirated through the catheter. A specimen was submitted for microbiologic analysis. Catheter was secured to the skin with monofilament nylon suture and a sterile dressing was applied. Patient tolerated the procedure well without immediate complication. FINDINGS: 3 cm right lower quadrant abscess. CONCLUSION: Successful CT-guided aspiration and drainage catheter placement within a right lower quadrant abscess without immediate complication. Dictated by: Omid Read M.D. on 10/28/2017 at 11:45 Electronically approved by: Omid Read M.D. on 10/28/2017 at 11:45 Dictated By: OMID READ MD 1145 Transcribed By: KRYSTINA on 10/28/17 1145 COPY TO: MARKUS GRIMES CT ABDOMEN/PELVIS W [place] [address] Patient Name: DELTA BARRIOS MR #: [id number] : 1985 Age/Sex: 31/F Req #: [id number] Adm Physician: HUBERT MIR MD Ordered by: MARKUS GRIMES Report #: [id number] Location: MED/SURG2 Room/Bed: 204-1 Procedure: [id number] CT/CT ABDOMEN/PELVIS W Exam Date: Exam Time: REPORT STATUS: Signed EXAM: CT Abdomen and Pelvis WITH contrast INDICATION: Abdominal fluid collection. COMPARISON: None. TECHNIQUE: Abdomen and pelvis were scanned utilizing a multidetector helical scanner from the lung base to the pubic symphysis after administration of IV contrast. Coronal and sagittal reformations were obtained. Routine protocol was performed. Scan was performed when during portal venous phase. IV CONTRAST: 150 mL of Omnipaque 300 ORAL CONTRAST: Water RADIATION DOSE: Total DLP: ... mGy*cm Estimated effective dose: (DLP x 0.015 x size factor) mSv COMPLICATIONS: None FINDINGS: LINES and TUBES: None. LOWER THORAX: Unremarkable HEPATOBILIARY: Severe atrophy of the right liver with compensatory hypertrophy of the left l iver. No focal hepatic lesions. Diffuse biliary dilatation in residual right liver. GALLBLADDER: Contracted. SPLEEN: No splenomegaly. PANCREAS: No focal masses or ductal dilatation. ADRENALS: No adrenal nodules KIDNEYS/URETERS: Kidneys enhance symmetrically. No hydronephrosis. No cystic or solid mass lesions. No stones. GI TRACT: Extensive postsurgical changes noted in the abdomen and pelvis with evidence of ileorectal anastomosis. Patient is a status post total colectomy. PELVIC ORGANS/BLADDER: Unremarkable. LYMPH NODES: No lymphadenopathy. VESSELS: Unremarkable. PERITONEUM / RETROPERITONEUM: Within the right retroperitoneum at the lateral right iliac muscle there is a 2.5 x 3.2 x 3.7 cm fluid collection that appears to connect with a bowel loop best visualized on coronal series 301, image 29 compatible with a chronic focal leak. Additionally, there is a fluid collection originating at the level of the ile orectal anastomosis best seen on series 2, image 64 and coronal series 301, image 52 measuring 1.7 x 1.7 x 3 cm. Right lower quadrant perisurgical fat stranding. BONES: Unremarkable. SOFT TISSUES: Unremarkable. IMPRESSION: 1. Severe atrophy of the right liver with competence of the hypertrophy of the left liver and evidence of biliary dilatation in the residual right liver. 2. There are 2 extraperitoneal fluid collections in the right lower quadrant and in the right hemipelvis as described above. The appearance and close proximity to anastomotic sutures are compatible with contained leaks Signed by: Dr. Marcos Tom M.D. on 10/27/2017 11:43 PM Dictated By: MARCOS CLEMENTS MD 42 Transcribed By: ROGERS on 10/27/172342 COPY TO: MARKUS GRIMES US ABDOMEN COMPLETE [place] [address] Patient Name: DELTA BARRIOS MR #: [id number] : 1985 Age/Sex: 31/F Req #: [id number] Adm Physician: HUBERT MIR MD Ordered by: LINDEN MAHARAJ MD Report #: [id number] Location: MED/SURG2 Room/Bed: [facility] Procedure: [id number] US/US ABDOMEN COMPLETE Exam Date: Exam Time: REPORT STATUS: Signed PROCEDURE: ABDOMINAL ULTRASOUND COMPARISON: CT abdomen and pelvis 06/30/2017. INDICATIONS: Abdominal Pain, HX Crohn's and Colitis FINDINGS: Liver: 13.2 cm. Normal hepatic parenchymal echogenicity. No focal mass. Main portal vein: 1.3 cm. Hepatopedal flow. Gallbladder: No echogenic calculi, gallbladder wall thickening, or pericholecystic fluid. Common Bile Duct: 2.0 mm. No echogenic filling defect. Sonographic Grubbs's sign: Negative. Right kidney: 11.4 cm. No solid or cystic mass, echogenic calculi, or hydronephrosis. Normal parenchymal echogenicity. Left kidney: 10.4 cm. No solid or cystic mass, echogenic calculi, or hydronephrosis. Normal parenchymal echogenicity. Spleen: 10.7 cm. No focal mass. Pancreas: The visualized portions of the pancreas are normal. Inferior vena cava: Normal. Aorta: Normal. Ascites: None. Focal 3.4 x 1.6 x 3.8 cm fluid collection is present in the right lower quadrant. CONCLUSION: 1. No acute sonographic abnormality. 2. Right lower quadrant fluid collection. CT of the abdomen and pelvis with intravenous and oral contrast may provide additional information for further characterization. 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 Dictated by: Hubert Lopez M.D. on 10/27/2017 at 10:19 Electronically approved by: Hubert Lopez M.D. on 10/27/2017 at 10:19 Dictated By: HUBERT LOPEZ MD 1019 Transcribed By: KRYSTINA on 10/27/17 1019 COPY TO: LINDEN MAHARAJ MD US PELVIS COMPLETE NON OB [place] [address] Patient Name: DELTA BARRIOS MR #: [id number] : 1985 Age/Sex: 31/F Req #: [id number] Adm Physician: HUBERT MIR MD Ordered by: OMID ELI MD Report #: [id number] Location: MED/SURG2 Room/Bed: [facility] Procedure: [id number] US/US PELVIS COMPLETE NON OB Exam Date: Exam Time: REPORT STATUS: Signed PROCEDURE: PELVIC ULTRASOUND COMPARISON: None. INDICATIONS: History of pelvic Abscess TECHNIQUE: Grayscale transverse and sagittal transabdominal images were obtained of the pelvis. FINDINGS: UTERUS: 8.8 x 3.9 x 4.5 cm. The uterus is slightly heterogenous in echogenicity. ENDOMETRIUM: 6.0 mm. RIGHT OVARY: 3.0 x 2.0 x 2.5 cm. LEFT OVARY: 2.9 x 2.1 x 2.6 cm. No adnexal mass. No ovarian cysts. There is trace free fluid within the pelvis. No adnexal masses. CONCLUSION: Normal transabdominal and transvaginal pelvic ultrasound. Dictated by: Hubert Lopez M.D. on 10/27/2017 at 10:25 Electronically approved by: Hubert Lopez M.D. on 10/27/2017 at 10:25 Dictated By: HUBERT LOPEZ MD 1025 Transcribed By: KRYSTINA on 10/27/17 1025 COPY TO: OMID ELI MD ABDOMEN-1VIEW (KUB) [place] [address] Patient Name: DELTA BARRIOS MR #: [id number] : 1985 Age/Sex: 31/F Req #: [id number] Adm Physician: Ordered by: PORTIA BARCLAY CARRIAGE FEEDER Report #: [id number] Location: ER Room/Bed: Procedure: [id number] DX/ABDOMEN-1VIEW (KUB) Exam Date: 10/25/17 Exam Time: 2144 REPORT STATUS: Signed ABDOMEN-1VIEW (KU) Clinical history: Small bowel obstruction Technique: AP view abdomen Comparison: None Findings: Gas is seen in nondilated small and large bowel. Bowel sutures noted. No evidence of free air. Impression: Nonobstructive bowel gas pattern. Signed by: Dr Shanique Peña MD on 10/25/2017 10:33 PM Dictated By: SHANIQUE PEÑA MD 32 Transcribed By: ROGERS on 10/25/172232 COPY TO: PORTIA BARCLAY [employer]RIAGE FEEDER CHEST SINGLE (PORTABLE) [place] [address] Patient Name: DELTA BARRIOS MR #: [id number] : 1985 Age/Sex: 31/F Req #: [id number] Adm Physician: Ordered by: PORTIA BARCLAY [employer]RI[employer]EDER Report #: [id number] Location: ER Room/Bed: Procedure: [id number] DX/CHEST SINGLE (PORTABLE) Exam Date: 10/25/17 Exam Time: 2144 REPORT STATUS: Signed CHEST SINGLE (PORTABLE), 10/25/2017 7:30 PM Technique: CHEST SINGLE (PORTABLE) Comparison: 9.3.16 Clinical history: Fever Findings: Right port tip overlies the SVC. Unremarkable appearance of the heart, mediastinum, lungs and pleural spaces. Impression: 1. Lines/Tubes: None 2. No acute abnormality. Signed by: Dr Shanique Peña MD on 10/25/2017 10:43 PM Dictated By: SHANIQUE PEÑA MD 42 Transcribed By: ROGERS on 10/25/172242 COPY TO: PORTIA BARCLAY [employer]RI[employer] FEEDER BARIUM ENEMA [address] [place], [place] [address] Patient Name: DELTA BARRIOS MR #: [id number] : 1985 Age/Sex: 31/F Req #: [id number] [facility] Physician: HUBERT MIR MD Ordered by: OMID ELI MD Report #: [id number] Location: MED/SURG2 Room/Bed: [facility] Procedure: [id number] DX/BARIUM ENEMA Exam Date: 07/08/17 Exam Time: 1000 REPORT STATUS: Signed PROCEDURE: X-RAY BARIUM ENEMA COMPARISON: CT abdomen and pelvis 06/30/2017. INDICATIONS: FISTULA, CHRONS, COLECTOMY TECHNIQUE: Metal Spinner film was obtained it demonstrated multiple bowel anastomoses, consistent with history of colectomy. Barium was introduced via a rectal tube in a retrograde fashion. Contrast was administered as tolerated, limited due to patient discomfort. Contrast was infused until the retrograde flow is limited due to small bowel peristalsis. Multiple spot images as well as overhead and bilateral decubitus images were obtained. FINDINGS: The campus recruiting internship film demonstrates no acute abnormalities. There is no evidence of obstruction, mass, or intraluminal filling defects. Postoperative changes of colectomy. No fistula was visualized in the right lower quadrant to correlate with series 301 [address] Small amount of contrast was noted anterior to the sacrum, best visualized on the lateral projection of the rectum without the rectal tube. The contrast correlates with the small fluid collection noted on series 300 image [address] CONCLUSION: No acute abnormality. No fistula in the right lower quadrant. 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 Dictated by: Hubert Lopez M.D. on 07/08/2017 at 11:45 Electronically approved by: Hubert Lopez M.D. on 07/08/2017 at 11:45 Dictated By: HUBERT LOPEZ MD 1145 Transcribed By: KRYSTINA on 07/08/17 1145 COPY TO: OMID ELI MD TRANSVAGINAL [place] [address] Patient Name: DELTA BARRIOS MR #: [id number] : 1985 Age/Sex: 31/F Req #: [id number] [facility] Physician: HUBERT MIR MD Ordered by: FANY BECERRA DO Report #: [id number] Location: MED/SURG2 Room/Bed: [facility] Procedure: [id number] US/US TRANSVAGINAL Exam Date: 07/04/17 Exam Time: 1727 REPORT STATUS: Signed EXAM: Transabdominal and Transvaginal Pelvic Ultrasound INDICATION: COMPARISON: CT abdomen and pelvis from 05/10/2016 01/02/2017 TECHNIQUE: Grayscale transverse and sagittal transabdominal and transvaginal images were obtained of the pelvis. Transvaginal imaging was medically necessary to better evaluate the endometrium and the adnexa. CLINICAL HISTORY: 31 year old A0; last menstrual period: 07/01/2017. FINDINGS: Uterus Orientation: Normal Size: 7.1 x 3.6 x 3.2 cm, Normal Mass: None Cervix: Normal Endometrium: Thickness: 0.9 cm, Normal. Appearance: Homogeneous echotexture without focal thickening. Right ovary: Size: 2.6 x 1.7 x 2.2 cm Mass/Cyst: None Left ovary: Size: 1.2 x 0.7 x 1.3 cm Mass/Cyst: None Adnexa: Normal Cul-de-sac: Small amount of free fluid IMPRESSION: Unremarkable pelvic ultrasound exam. Signed by: Dr. Nolvia Teixeira M.D. on 07/04/2017 6:36 PM Dictated By: NOLVIA TEIXEIRA MD 35 Transcribed By: ROGERS on 07/04/171835 COPY TO: FANY BECERRA DO CT ABDOMEN/PELVIS W [place] [address] Patient Name: DELTA BARRIOS MR #: [id number] : 1985 Age/Sex: 31/F Req #: [id number] Adm Physician: Ordered by: MACARENA BARNETT Report #: [id number] Location: ER Room/Bed: Procedure: [id number] CT/CT ABDOMEN/PELVIS W Exam Date: Exam Time: REPORT STATUS: Signed PROCEDURE: CT ABDOMEN AND PELVIS WITH CONTRAST TECHNIQUE: The abdomen and pelvis were scanned utilizing a multidetector helical scanner from the diaphragm to the lesser trochanter after the IV administration of 100 cc of Isovue 370 and the oral administration of water. Coronal and sagittal multiplanar reformations were obtained. Total DLP: 161.95 mGy-cm COMPARISON: CT abdomen pelvis 01/02/17. 12/05/2016. 12/01/2016. INDICATIONS: CHRONS, DIFFUSED ABDOMINAL PAIN FINDINGS: LOWER THORAX: Normal. HEPATOBILIARY: No focal hepatic lesions. No biliary ductal dilatation. Unchanged mild intrahepatic biliary dilatation supplying segment 6 of the liver with mild associated retraction and atrophy of segment 6. SPLEEN: No splenomegaly. PANCREAS: No focal masses or ductal dilatation. ADRENALS: No adrenal nodules. KIDNEYS/URETERS: No hydronephrosis, stones, or solid mass lesions. PELVIC ORGANS/BLADDER: Uterus is anteverted. A structure that appears to be a 2.2 cm left ovarian corpus luteum. PERITONEUM / RETROPERITONEUM: 1.3 x 0.8 cm abscess in the right iliacus muscle (series 2 image 54), where the previous drain resided. 1.4 x 2.0 x 3.6 cm pre- sacral abscess is again seen and grossly stable in size. Interval development of the foci of free air (series 2 image 64), suspicious for connection with rectal anastomosis. LYMPH NODES: No lymphadenopathy. VESSELS: Unremarkable. GI TRACT: Again seen are changes of subtotal colectomy with ileorectal anastomosis. New mild wall thickening of the right abdominal bowel anastomosis (series 2 image 49). Subtle fat stranding in the midline pelvis anteriorly. BONES AND SOFT TISSUES: Unremarkable. IMPRESSION: 1. Recurrent 1.3 cm right iliacus muscle abscess, where there was a pre vious drain. 2. 1.4 x 2.0 x 3.6 cm presacral abscess now with a foci of air, worrisome for a fistulous connection to the rectal anastomosis. 3. 2.2 cm left ovarian corpus luteum. 4. Subtle fat stranding in the anterior midline pelvis. This may be the result of left ovarian observation. However, subtle developing bowel inflammation cannot be excluded. 5. New mild wall thickening of the right abdominal bowel anastomosis. This may represent acute Crohn's disease. No evidence of obstruction. Dictated by: Carmelo Miller M.D. on 06/30/2017 at 18:00 Electronically approved by: Carmelo Miller M.D. on 06/30/2017 at 18:00 Dictated By: CARMELO MILLER MD 1800 Transcribed By: KRYSTINA on 06/30/17 1800 COPY TO: MACARENA BARNETT CT ABDOMEN/PELVIS [place] [address] Patient Name: DELTA BARRIOS MR #: [id number] : 1985 Age/Sex: 31/F Req #: [id number] Adm Physician: Ordered by: PORTIA BARCLAY [employer]ER Report #: [id number] Location: ER Room/Bed: Procedure: [id number] CT/CT ABDOMEN/PELVIS WO Exam Date: Exam Time: REPORT STATUS: Signed PROCEDURE: CT ABDOMEN AND PELVIS WITHOUT CONTRAST TECHNIQUE: The abdomen and pelvis were scanned utilizing a multidetector helical scanner from the diaphragm to the lesser trochanter without oral or IV contrast. Coronal and sagittal multiplanar reformations were obtained. COMPARISON: 05/10/2016 INDICATIONS: LOWER RIGHT ABDOMEN PAIN FINDINGS: ABSENCE OF INTRAVENOUS CONTRAST DECREASES SENSITIVITY FOR DETECTION OF FOCAL LESIONS AND VASCULAR PATHOLOGY. LOWER THORAX: Normal. HEPATOBILIARY: The right hepatic lobe appears somewhat atrophic. This is a stable finding since the prior examination in 2015. No focal hepatic lesions. No biliary ductal dilatation. The gallbladder is unremarkable. SPLEEN: No splenomegaly. PANCREAS: No focal masses or ductal dilatation. ADRENALS: No adrenal nodules. KIDNEYS/URETERS: No hydronephrosis, stones, or solid mass lesions. PELVIC ORGANS/BLADDER: Unremarkable. PERITONEUM / RETROPERITONEUM: No free air or fluid. LYMPH NODES: There are mildly enlarged left internal iliac chain lymph nodes. For example, a left internal iliac lymph node (series 3, image 113) measures 1.4 cm. VESSELS: Unremarkable. GI TRACT: There are postsurgical changes to the bowel which represent either a subtotal colectomy with ileorectal anastomosis or a total colectomy with ileoanal pouch formation. In the right lower quadrant, there is thickening and inflammation of a blind-ending loop of bowel which may represent a portion of the ileoanal pouch. Further evaluation is difficult without intravenous or oral contrast. On the right side of the distal rectum, within mesorectal fat, there is a 2.8 x 2.0 cm soft tissue density (series 3, image 123) which may represent perirectal fistula or absce ss. BONES AND SOFT TISSUES: Unremarkable. IMPRESSION: 1. There are postsurgical changes to the bowel which represent either a subtotal colectomy with ileorectal anastomosis or a total colectomy with ileoanal pouch. Correlate with surgical history. 2. In the right lower quadrant, there is thickening and inflammation of a blind-ending loop of bowel which may represent a portion of the ileal pouch. This is the same loop that was affected in 05/10/2016, and suggests a flare of inflammatory bowel disease. 3. On the right side of the distal rectum, within mesorectal fat, there is a 2.8 cm soft tissue density which is indeterminate. This may represent perirectal fistula or abscess. 4. Left pelvic adenopathy which may be reactive. 5. When feasible, consider repeating examination with oral and IV contrast for further evaluation. 6. No renal or ureteral stones. Dictated by: Kathy Nunn M.D. on 05/21/2017 at 18:12 Electron ically approved by: Kathy Nunn M.D. on 05/21/2017 at 18:13 Dictated By: KATHY NUNN MD 12 Transcribed By: KRYSTINA on 05/21/171812 COPY TO: PORTIA BARCLAY NP
--- NOTE | 2018-10-15 14:09 | Diagnostic Imaging Report ---
EXAMINATION: CHEST SINGLE (PORTABLE) INDICATION: Status post line placement. COMPARISON: Chest radiograph 10/13/2018. FINDINGS: TUBES and LINES: Status post interval removal of right-sided chest port. Status post interval placement of left-sided central line with tip in the mid SVC. LUNGS: Lungs are well inflated. There is no evidence of pneumonia or pulmonary edema. Mild patchy left basilar opacity, likely atelectasis. PLEURA: No pleural effusion or pneumothorax. HEART AND MEDIASTINUM: The cardiomediastinal silhouette is unremarkable. BONES AND SOFT TISSUES: No acute osseous lesion. Soft tissues are unremarkable. UPPER ABDOMEN: No free air under the diaphragm. IMPRESSION: Interval placement of left-sided central line with catheter tip in the mid SVC. No evidence of pneumothorax. Interval removal of right-sided port. Signed by: Dr. Milagro Andrew MD on 10/15/2018 2:06 PM
[2018-10-15 14:38] VITALS: BP 103/66
--- NOTE | 2018-10-15 16:29 | Operative Report ---
DATE OF PROCEDURE: October 15, 2018 PREOPERATIVE DIAGNOSIS: Malfunctioning right subclavian venous access port. POSTOPERATIVE DIAGNOSIS: Malfunctioning right subclavian venous access port. PROCEDURES: 1. Placement of left subclavian vein double lumen venous access port. 2. Removal of right subclavian venous access port. FACILITY COORDINATOR: None. ANESTHESIA: General. INDICATIONS AND FINDINGS: The patient is a 32-year-old female with Crohn's disease, who has been receiving TPN via a venous access port, and the right subclavian port is not functioning well. At surgery the right subclavian port was removed without difficulty. A left subclavian port was placed without difficulty with the tip of the catheter positioned in the superior vena cava. Blood aspirated freely from each lumen of the port at the end of the procedure. TECHNIQUE: After adequate general anesthesia with patient in the supine position, the subclavian areas were prepped and draped in sterile fashion with ChloraPrep solution. Incision was made on the right side with it going through the old wound and carried down through the subcutaneous tissue. The catheter was seen traversing the subcutaneous tissues. It was dissected free, delivered up into the wound, and the port and catheter were removed intact. Attempts to aspirate the right subclavian vein from this side were not successful, and it was decided that she would need a new port on the opposite side. The wound was inspected for hemostasis, which was seen to be adequate. It was then closed with 3-0 Vicryl subcutaneous tissue and 4-0 Vicryl subcuticular to the skin. Attention was turned to the left side. The left subclavian vein was aspirated. A J-wire introduced passed easily without resistance. Position of the wire in the superior vena cava was confirmed with fluoroscopy. An incision was made in the deltopectoral groove and a subcutaneous pocket created in its inferior portion of the wound, and the wire was made to exit through the wound. Hemostasis of the wound was seen to be adequate. Using Seldinger technique, the double lumen catheter was placed without difficulty. Blood aspirated freely from each lumen of the catheter once it was positioned with the tip positioned in the superior vena cava. The catheter was cut to the appropriate length, connected to the subcutaneous port. Each port was then aspirated, found to aspirate blood freely. It was then flushed with heparinized saline. The port was placed into the subcutaneous pocket and held in the pocket with sutures of 2-0 Ethibond. The entire port and catheter was inspected with fluoroscopy. There were no kinks, and the catheter tip was seen to be in the superior vena cava. Each lumen of the port was aspirated, found to aspirate blood freely. Each was then flushed with heparinized saline, and the needle was removed. Hemostasis of the wound was seen to be adequate. The wound was then closed with 3-0 Vicryl in the subcutaneous tissue and 4-0 Vicryl subcuticular to the skin. Dermabond was applied to each wound and a sterile dressing. The patient tolerated the procedure well. Estimated blood loss was less than 5 mL. There were no complications. All counts were correct. The patient was taken to the recovery room in satisfactory condition. Job#: [id number]
== END | disposition home or self-care (01) ==
LOC: OR 11:25
PROVIDERS: ATTEND Surgery
DX: T82.318A Breakdown (mechanical) of other vascular grafts, initial encounter (principal); K50.90 Crohn's disease, unspecified, without complications; Z01.812 Encounter for preprocedural laboratory examination; Z88.5 Allergy status to narcotic agent; Z88.8 Allergy status to other drugs, medicaments and biological substances; Z91.048 Other nonmedicinal substance allergy status
CPT/HCPCS: 36415; 36558; 36590; 71045; 71046; 77001; 80053; 84702; 85025; 85610; 85730; 93005; J0690; J1170; J1644; J1885; J2001; J2250; J2704; J7050